=== PATIENT | male | born 1970 | race African-American/Black ===

== ENCOUNTER 2017-01-01 13:52 | Inpatient (IN) | payer OTHER ==
[2017-01-01 14:54] VITALS: BMI 32.3
--- NOTE | 2017-01-01 15:37 | HP ---
CIWA Score - CIWA Score Nausea/Vomitin Muscle Tremors: 3 Anxiety: 4-Mod. Anxious/Guarded Agitation: 3 Paroxysmal Sweats: 3 Orientation: 2-Disoriented Date<2 days Tacttile Disturbances: 0-None Auditory Disturbances: 0-None Visual Disturbances: 0-None Headache: 0-None Present CIWA-Ar Total Score: 18 Admission ROS BHS - HPI Chief Complaint: Withdrawal sx. Allergies/Adverse Reactions: Allergies Allergy/AdvReac Type Severity Reaction Status Date / Time No Known Drug Allergies Allergy Verified 05/04/16 11:11 lactose AdvReac Unknown DIARRHEA Verified 05/04/16 11:11 History of Present Illness: 46 y/o man with a long hx. of alcoholism is admitted for detox.Pt. has been in previous detox,denies significant sobriety. Exam Limitations: No Limitations - Ebola screening Have you traveled outside of the country in the last 21 days: No (N) Have you had contact with anyone from an Ebola affected area: No Have you been sick,other than usual withdrawal symptoms: No Do you have a fever: No - Review of Systems Constitutional: Diaphoresis EENT: reports: No Symptoms Reported Respiratory: reports: No Symptoms reported Cardiac: reports: No Symptoms Reported GI: reports: Nausea, Abdominal cramping : reports: No Symptoms Reported Musculoskeletal: reports: Back Pain Integumentary: reports: Sweating Neuro: reports: Tremors, Other (blackouts) Endocrine: reports: No Symptoms Reported Hematology: reports: No Symptoms Reported Psychiatric: reports: No Sypmtoms Reported Other Systems: Reviewed and Negative Patient History - Patient Medical History Hx Anemia: No Hx Asthma: Yes (ON MDI) Hx Chronic Obstructive Pulmonary Disease (COPD): No Hx Cancer: No Hx Cardiac Disorders: No Hx Congestive Heart Failure: No Hx Hypertension: No Hx Hypercholesterolemia: No Hx Pacemaker: No HX Cerebrovascular Accident: No Hx Seizures: No Hx Dementia: No Hx Diabetes: No Hx Gastrointestinal Disorders: Yes (???HX GERD-PRILOSEC(NONCOMPLIANT)"CYST BY ENDOSCOPY". HX VOMITS BLOOD.) Hx Liver Disease: Yes (FATTY LIVER x "few years") Hx Genitourinary Disorders: No Hx Sexually Transmitted Disorders: Yes (herpes/HPV) Hx Renal Disease (ESRD): No Hx Thyroid Disease: No Hx Human Immunodeficiency Virus (HIV): No Hx Hepatitis C: No Hx Depression: Yes (AND ANXIETY;ON MEDS) Hx Suicide Attempt: Yes (;DENIES CURRENT IDEATION) Hx Bipolar Disorder: No Hx Schizophrenia: No - Patient Surgical History Past Surgical History: No Hx Neurologic Surgery: No Hx Cataract Extraction: No Hx Cardiac Surgery: No Hx Lung Surgery: No Hx Breast Surgery: No Hx Breast Biopsy: No Hx Abdominal Surgery: No Hx Appendectomy: No Hx Cholecystectomy: No Hx Genitourinary Surgery: No Hx Section: No Hx Orthopedic Surgery: No Anesthesia Reaction: No - PPD History Previous Implant?: Yes Documented Results: Negative w/proof Implanted On Prior R Admission?: Yes Date: 10/03/15 Results: 0 mm PPD to be Administered?: Yes - Smoking Cessation Smoking history: Former smoker Have you smoked in the past 12 months: Yes Aproximately how many cigarettes per day: 0 If you are a former smoker, when did you quit?: 12/17 Cigars Per Day: 0 Hx Chewing Tobacco Use: No Initiated information on smoking cessation: No - Substance & Tx. History Hx Alcohol Use: Yes Hx Substance Use: No Substance Use Type: Alcohol Hx Substance Use Treatment: Yes (Detox & Residential) - Substances Abused Alcohol Route: Oral Frequency: Daily Amount used: Beer 2(6packs),vodka 1 pint Age of first use: 17 Date of Last Use: 01/01/17 Family Disease History - Family Disease History Family History: Unable to Obtain (pt. was adopted) Admission Physical Exam BHS - Vital Signs Vital Signs: Vital Signs - 24 hr 01/01/17 14:52 Temperature 98.7 F Pulse Rate 109 H Respiratory 18 Rate Blood Pressure 137/87 - Physical General Appearance: Yes: Alcohol on Breath, Tremorous, Irritable, Sweating, Anxious Respiratory: Yes: Lungs Clear, Normal Breath Sounds Neck: Yes: Supple Breast: Yes: Breast Exam Deferred Cardiology: Yes: Regular Rhythm, Regular Rate, S1, S2 Abdominal: Yes: Normal Bowel Sounds, Non Tender, Soft Genitourinary: Yes: Within Normal Limits Back: Yes: Within Normal Limits Musculoskeletal: Yes: Within Normal Limits Extremities: Yes: Tremors Neurological: Yes: Fully Oriented, Alert Integumentary: Yes: Diaphoresis Lymphatic: Yes: Within Normal Limits - Diagnostic (1) Alcohol dependence with uncomplicated withdrawal Current Visit: Yes Status: Acute (2) Asthma Current Visit: Yes Status: Chronic Qualifiers: Asthma severity: mild intermittent Asthma complication type: uncomplicated Qualified Code(s): J45.20 - Mild intermittent asthma, uncomplicated (3) GERD (gastroesophageal reflux disease) Current Visit: Yes Status: Chronic Qualifiers: Esophagitis presence: without esophagitis Qualified Code(s): K21.9 - Gastro-esophageal reflux disease without esophagitis Cleared for Admission BHS - Detox or Rehab [facility] Level of Care: Medically Managed Detox Regimen/Protocol: Librium [facility] Breath Alcohol Content Breath Alcohol Content: 0.295 Urine Drug Screen - Results Drug Screen Negative: No Urine Drug Screen Results: BZO-Benzodiazepines
[2017-01-01] MEDS ORDERED: P-EPHED 60MG/TRIPROLIDI 2.5MG TABLET PO PRN (15:51)
[2017-01-01] MEDS ORDERED: chlordiazePOXIDE HCL 25 MG CAPSULE PO PRN (15:51)
[2017-01-01] MEDS ORDERED: hydrOXYzine PAMOATE 50 MG CAPSULE (FP) PO PRN (15:51)
[2017-01-01] MEDS ORDERED: MENTHOL/PHENOL 1 EACH UD MM PRN (15:51)
[2017-01-01] MEDS ORDERED: MAG HYDROX/AL HYDROX/SIMETH 30 ML UNIT-DOSE CUP PO PRN (15:51)
[2017-01-01] MEDS ORDERED: chlordiazePOXIDE HCL 25 MG CAPSULE PO ONE (15:51)
[2017-01-01] MEDS ORDERED: LOPERAMIDE HCL 2 MG CAPSULE PO PRN (15:51)
[2017-01-01] MEDS ORDERED: guaiFENesin/D-METHORPHAN HB 10 ML UNIT-DOSE CUPS PO PRN (15:51)
[2017-01-01] MEDS ORDERED: MAGNESIUM HYDROX 2400MG/30ML ORAL SUSPENSION 30 ML CUP PO PRN (15:51)
[2017-01-01] MEDS ORDERED: ACETAMINOPHEN 325 MG TABLET (FP) PO PRN (15:51)
[2017-01-01] MEDS ORDERED: MAGNESIUM CITRATE 300 ML BOTTLE PO PRN (15:51)
[2017-01-01] MEDS ORDERED: IBUPROFEN 400 MG TABLET (FP) PO PRN (15:51)
[2017-01-01] MEDS ORDERED: ALBUTEROL SO4 6.7 GM HFA INHALER IH PRN (15:53)
[2017-01-01] MEDS: chlordiazePOXIDE HCL 25 MG CAPSULE PO SCH ×2 (17:15→22:30)
[2017-01-01 19:12] LABS: URINE APPEARANCE CLEAR; URINE BILIRUBIN NEGATIVE (NEGATIVE); URINE COLOR STRAW; URINE GLUCOSE (UA) NEGATIVE (NEGATIVE); URINE KETONE NEGATIVE (NEGATIVE); URINE LEUK ESTERASE NEGATIVE (NEGATIVE); URINE NITRITE NEGATIVE (NEGATIVE); URINE UROBILINOGEN NEGATIVE E.U./dl (0.2-1.0)
[2017-01-01 19:13] LABS: URINE BLOOD 1+ (NEGATIVE); URINE PROTEIN 1+ (NEGATIVE)
[2017-01-01 19:14] LABS: URINE MUCUS RARE; URINE RBC 3 /hpf (0-3); URINE WBC <1 /hpf (3-5)
[2017-01-01] MEDS: THIAMINE HCL 100 MG TABLET (FP) PO SCH (22:30)
[2017-01-01] MEDS: BUDESONIDE/FORMETEROL FUMARATE 160/4.5 mcg INHALER IH SCH (22:32)
[2017-01-02] MEDS: chlordiazePOXIDE HCL 25 MG CAPSULE PO SCH ×4 (05:29→22:27)
--- NOTE | 2017-01-02 10:01 | CONSULT ---
[facility] Psychiatric Consult - Data Date of interview: 01/02/17 Admission source: [facility] Identifying data: Another admission to [facility] for this 46 y/o AA male seeking detox treatment on for alcohol dependence.Patient is , a father of two,domiciled,unemployed and supported by his girlfriend. Substance Abuse History: - Smoking Cessation. Smoking history: Former smoker. Have you smoked in the past 12 months: Yes. Aproximately how many cigarettes per day: 0. If you are a former smoker, when did you quit?: 12/17. Cigars Per Day: 0. Hx Chewing Tobacco Use: No. Initiated information on smoking cessation : No. - Substance & Tx. History. Hx Alcohol Use: Yes. Hx Substance Use: No. Substance Use Type: Alcohol. Hx Substance Use Treatment: Yes (Detox & Residential). - Substances Abused. Alcohol. Route: Oral. Frequency: Daily. Amount used: Beer 2(6packs),vodka 1 pint. Age of first use: 17. Date of Last Use: 01/01/17. Confirmed by patient. Medical History: GERD,bronchial asthma and liver disease.Noted history of herpes genitalis. Psychiatric History: Onset of psychiatric problems : 2006.Diagnosed with MDD and Anxiety Disorder.Patient is known to [facility] (2006) and [facility] (2011).Mr Whitmore gets his psychiatric outpatient services at [facility]),under the care of Dr Greene.Maintenance medications consist of remeron 45 mg po hs + trazodone 150 mg po hs + gabapentin 300 mg po tid.Non-adherent to medications for two weeks (self-report) .History of a suicide attempt in 2008 via overdose with " pills ". Physical/Sexual Abuse/Trauma History: Patient denies. Additional Comment: Urine Drug Screen Results: BZO-Benzodiazepines.Noted. Mental Status Exam - Mental Status Exam Alert and Oriented to: Time, Place, Person Cognitive Function: Good Patient Appearance: Unkempt, Disheveled Mood: Nervous, Withdrawn, Anxious Affect: Mood Congruent, Constricted Patient Behavior: Fatigued, Cooperative Speech Pattern: Clear Voice Loudness: Normal Thought Process: Goal Oriented Thought Disorder: Not Present Hallucinations: Denies Suicidal Ideation: Denies Homicidal Ideation: Denies Insight/Judgement: Poor Sleep: Poorly, Difficulty falling asleep Appetite: Good Muscle strength/Tone: Normal Gait/Station: Normal Psychiatric Findings - Problem List ([place] 1, 2,3) (1) Alcohol dependence with uncomplicated withdrawal Current Visit: Yes Status: Acute (2) Nicotine dependence Current Visit: Yes Status: Acute Qualifiers: Nicotine product type: cigarettes Substance use status: uncomplicated Qualified Code(s): F17.210 - Nicotine dependence, cigarettes, uncomplicated (3) Substance induced mood disorder Current Visit: Yes Status: Acute (4) MDD (major depressive disorder) Current Visit: Yes Status: Chronic Qualifiers: Major depression recurrence: recurrent Active/Remission status: in partial remission Qualified Code(s): F33.41 - Major depressive disorder, recurrent, in partial remission (5) Asthma Current Visit: Yes Status: Chronic Qualifiers: Asthma severity: mild intermittent Asthma complication type: uncomplicated Qualified Code(s): J45.20 - Mild intermittent asthma, uncomplicated (6) GERD (gastroesophageal reflux disease) Current Visit: Yes Status: Chronic Qualifiers: Esophagitis presence: without esophagitis Qualified Code(s): K21.9 - Gastro-esophageal reflux disease without esophagitis - Initial Treatment Plan Initial Treatment Plan: Psychoeducation.Detoxification in progress.Medications : trazodone 100 mg po hs + remeron 15 mg po hs + gabapentin 300 mg po tid.Side effects/benefits of each medication : discussed with the patient.Made aware,in particular,of potential for priapism (trazodone).Patient is in agreement with this careplan.Observation.
[2017-01-02] MEDS: PRENATAL VITAMINS W/ FOLIC ACID TABLET (FP) PO SCH (10:30)
[2017-01-02] MEDS: BUDESONIDE/FORMETEROL FUMARATE 160/4.5 mcg INHALER IH SCH ×2 (10:30→22:27)
[2017-01-02] MEDS ORDERED: ONDANSETRON *ODT* 4 MG TABLET SL PRN (11:39)
--- NOTE | 2017-01-02 11:39 | PN ---
[facility] CIWA - CIWA Score Nausea/Vomitin-No Nausea/No Vomiting Muscle Tremors: 4-Moderate,w/Arms Extend Anxiety: 4-Mod. Anxious/Guarded Agitation: 4-Moderately Restless Paroxysmal Sweats: 1-Minimal Palms Moist Orientation: 0-Oriented Tacttile Disturbances: 3-Moderate Itch/Numb/Burn Auditory Disturbances: 0-None Visual Disturbances: 0-None Headache: 0-None Present CIWA-Ar Total Score: 16 BHS Progress Note (SOAP) Subjective: NAUSEA, ANXIETY,SWEATS, TREMORS. Objective: 01/02/17 11:39 Vital Signs Temperature 97.7 F 01/02/17 09:22 Pulse Rate 101 H 01/02/17 09:22 Respiratory Rate 18 01/02/17 09:22 Blood Pressure 131/90 01/02/17 09:22 O2 Sat by Pulse Oximetry (%) Laboratory Last Values Urine Color Straw 01/01/17 18:56 Urine Appearance Clear 01/01/17 18:56 Urine pH 5.0 (5.0-8.0) 01/01/17 18:56 Ur Specific [place] <= 1.005 (1.005-1.025) 01/01/17 18:56 Urine Protein 1+ (NEGATIVE) H 01/01/17 18:56 Urine Glucose (UA) Negative (NEGATIVE) 01/01/17 18:56 Urine Ketones Negative (NEGATIVE) 01/01/17 18:56 Urine Blood 1+ (NEGATIVE) H 01/01/17 18:56 Urine Nitrite Negative (NEGATIVE) 01/01/17 18:56 Urine Bilirubin Negative (NEGATIVE) 01/01/17 18:56 Urine Urobilinogen Negative E.U./dl (0.2-1.0) 01/01/17 18:56 Ur Leukocyte Esterase Negative (NEGATIVE) 01/01/17 18:56 Urine RBC 3 /hpf (0-3) 01/01/17 18:56 Urine WBC <1 /hpf (3-5) 01/01/17 18:56 Ur Epithelial Cells Rare /hpf (FEW) 01/01/17 18:56 Urine Mucus Rare 01/01/17 18:56 Assessment: 01/02/17 11:39 WITHDRAWAL SX Plan: CONTINUE DETOX ZOFRAN DIRECTED
[2017-01-02 12:16] LABS: MCH 28.2 pg (25.7-33.7); MCHC 32.5 g/dl (32.0-35.9); MEAN CELL VOLUME 86.7 fl (80-96); MEAN PLT VOLUME 10.1 fl (7.5-11.1); PLATELET COUNT 129 K/MM3 (134-434)
[2017-01-02 12:25] LABS: ALBUMIN 4.1 g/dl (3.4-5.0); ALK PHOS 74 U/L (45-117); ANION GAP 9 (8-16); BILIRUBIN,TOTAL 0.9 mg/dL (0.2-1.0); CO2 29 mmol/L (21-32); COCKROFT - GAULT 117.32; GLUCOSE,RANDOM 76 mg/dL (74-106); SGOT/AST 61 U/L (15-37); SGPT/ALT 53 U/L (12-78); TOT PROT 7.8 g/dl (6.4-8.2)
[2017-01-02 12:32] LABS: HIV 1 & 2 AB NEGATIVE; HIV 1 AGp24 NEGATIVE
[2017-01-02] MEDS: GABAPENTIN 300 MG CAPSULE (FP) PO SCH ×2 (13:41→22:27)
--- NOTE | 2017-01-02 14:23 | EKG ---
Test Reason : Blood Pressure : / mmHG Vent. Rate : 097 BPM Atrial Rate : 097 BPM P-R Int : 130 ms QRS Dur : 074 ms QT Int : 348 ms P-R-T Axes : 055 025 032 degrees QTc Int : 441 ms NORMAL SINUS RHYTHM POSSIBLE LEFT ATRIAL ENLARGEMENT BORDERLINE ECG NO PREVIOUS ECGS AVAILABLE Confirmed by JOSHUA WARD MD ([id number]) on 01/02/2017 2:22:31 PM Referred By: Confirmed By:JOSHUA WARD MD
[2017-01-02] MEDS: THIAMINE HCL 100 MG TABLET (FP) PO SCH (22:27)
[2017-01-02] MEDS: traZODone HCL 100 MG TABLET (FP) PO SCH (22:27)
[2017-01-03] MEDS: GABAPENTIN 300 MG CAPSULE (FP) PO SCH ×3 (05:41→22:41)
[2017-01-03] MEDS: chlordiazePOXIDE HCL 25 MG CAPSULE PO SCH ×2 (05:41→10:28)
[2017-01-03] MEDS: BUDESONIDE/FORMETEROL FUMARATE 160/4.5 mcg INHALER IH SCH ×2 (10:28→22:41)
[2017-01-03] MEDS: PRENATAL VITAMINS W/ FOLIC ACID TABLET (FP) PO SCH (10:28)
--- NOTE | 2017-01-03 12:17 | PN ---
[facility] CIWA - CIWA Score Nausea/Vomitin-No Nausea/No Vomiting Muscle Tremors: 4-Moderate,w/Arms Extend Anxiety: 4-Mod. Anxious/Guarded Agitation: 4-Moderately Restless Paroxysmal Sweats: 1-Minimal Palms Moist Orientation: 0-Oriented Tacttile Disturbances: 3-Moderate Itch/Numb/Burn Auditory Disturbances: 0-None Visual Disturbances: 0-None Headache: 0-None Present CIWA-Ar Total Score: 16 S Progress Note (SOAP) Subjective: ANXIETY,SWEATS,TREMORS,FATIGUE. Objective: 01/03/17 12:16 Vital Signs Temperature 96.9 F L 01/03/17 09:35 Pulse Rate 92 H 01/03/17 09:35 Respiratory Rate 20 01/03/17 09:35 Blood Pressure 92/65 01/03/17 09:35 O2 Sat by Pulse Oximetry (%) Laboratory Last Values WBC 7.0 K/mm3 (4.0-10.0) 01/02/17 07:00 RBC 5.75 M/mm3 (4.00-5.60) H 01/02/17 07:00 Hgb 16.2 GM/dL (11.7-16.9) 01/02/17 07:00 Hct 49.8 % (35.4-49) H 01/02/17 07:00 MCV 86.7 fl (80-96) 01/02/17 07:00 MCHC 32.5 g/dl (32.0-35.9) 01/02/17 07:00 RDW 15.0 % (11.9-15.9) D 01/02/17 07:00 Plt Count 129 K/MM3 (134-434) L D 01/02/17 07:00 MPV 10.1 fl (7.5-11.1) 01/02/17 07:00 Sodium 137 mmol/L (136-145) 01/02/17 07:00 Potassium 4.3 mmol/L (3.5-5.1) 01/02/17 07:00 Chloride 99 mmol/L (98-107) 01/02/17 07:00 Carbon Dioxide 29 mmol/L (21-32) D 01/02/17 07:00 Anion Gap 9 (8-16) 01/02/17 07:00 BUN 14 mg/dL (7-18) D 01/02/17 07:00 Creatinine 1.0 mg/dL (0.7-1.3) 01/02/17 07:00 Creat Clearance w eGFR > 60 (>60) 01/02/17 07:00 Random Glucose 76 mg/dL (74-106) D 01/02/17 07:00 Calcium 9.0 mg/dL (8.5-10.1) 01/02/17 07:00 Total Bilirubin 0.9 mg/dL (0.2-1.0) D 01/02/17 07:00 AST 61 U/L (15-37) H D 01/02/17 07:00 ALT 53 U/L (12-78) D 01/02/17 07:00 Alkaline Phosphatase 74 U/L (45-117) D 01/02/17 07:00 Total Protein 7.8 g/dl (6.4-8.2) 01/02/17 07:00 Albumin 4.1 g/dl (3.4-5.0) 01/02/17 07:00 Urine Color Straw 01/01/17 18:56 Urine Appearance Clear 01/01/17 18:56 Urine pH 5.0 (5.0-8.0) 01/01/17 18:56 Ur Specific [place] <= 1.005 (1.005-1.025) 01/01/17 18:56 Urine Protein 1+ (NEGATIVE) H 01/01/17 18:56 Urine Glucose (UA) Negative (NEGATIVE) 01/01/17 18:56 Urine Ketones Negative (NEGATIVE) 01/01/17 18:56 Urine Blood 1+ (NEGATIVE) H 01/01/17 18:56 Urine Nitrite Negative (NEGATIVE) 01/01/17 18:56 Urine Bilirubin Negative (NEGATIVE) 01/01/17 18:56 Urine Urobilinogen Negative E.U./dl (0.2-1.0) 01/01/17 18:56 Ur Leukocyte Esterase Negative (NEGATIVE) 01/01/17 18:56 Urine RBC 3 /hpf (0-3) 01/01/17 18:56 Urine WBC <1 /hpf (3-5) 01/01/17 18:56 Ur Epithelial Cells Rare /hpf (FEW) 01/01/17 18:56 Urine Mucus Rare 01/01/17 18:56 RPR Titer Nonreactive (NONREACTIVE) 01/02/17 07:00 HIV 1&2 Antibody Screen Negative 01/02/17 07:00 HIV P24 Antigen Negative 01/02/17 07:00 Assessment: 01/03/17 12:16 WITHDRAWAL SX Plan: CONTINUE DETOX
[2017-01-03] MEDS: chlordiazePOXIDE 5 MG CAPSULE PO SCH ×2 (17:31→22:41)
[2017-01-03] MEDS: THIAMINE HCL 100 MG TABLET (FP) PO SCH (22:40)
[2017-01-03] MEDS: traZODone HCL 100 MG TABLET (FP) PO SCH (22:41)
[2017-01-03] MEDS: diphenhydrAMINE HCL 50 MG CAPSULE PO PRN (22:42)
[2017-01-04] MEDS: diphenhydrAMINE HCL 50 MG CAPSULE PO PRN (00:22)
[2017-01-04] MEDS: chlordiazePOXIDE 5 MG CAPSULE PO SCH (05:33)
[2017-01-04] MEDS: GABAPENTIN 300 MG CAPSULE (FP) PO SCH (05:33)
[2017-01-04 06:37] VITALS: BP 114/76; PULSE 75; TEMP 97
--- NOTE | 2017-01-04 11:01 | DS ---
[facility] Detox Discharge Summary Admission Date: 01/01/17 Discharge Date: 01/04/17 - History Present History: Alcohol Dependence Additional Comments: PT SIGNED OUT AMA VERY EARLY THIS MORNING STATING HE HAS SOME PERSONAL BUSINESS TO TAKE CARE OF. Pertinent Past History: ASTHMA GERD FATTY LIVER DEPRESSION - Physical Exam Results Vital Signs: Vital Signs Temperature 97 F L 01/04/17 06:37 Pulse Rate 75 01/04/17 06:37 Respiratory Rate 18 01/04/17 06:37 Blood Pressure 114/76 01/04/17 06:37 O2 Sat by Pulse Oximetry (%) - Medication Discharge Medications: Ambulatory Orders Gabapentin [Neurontin -] 300 mg PO TID #90 capsule 05/04/16 Mirtazapine [Remeron -] 45 mg PO HS #30 tablet 05/04/16 Trazodone HCl [Desyrel -] 150 mg PO HS #30 tablet 05/04/16 Albuterol Sulfate Inhaler - [Ventolin HFA Inhaler -] 2 inh PO Q4H PRN #1 inhaler 05/08/16 Gabapentin [Neurontin -] 300 mg PO TID #60 capsule 01/03/17 Mirtazapine [Remeron -] 15 mg PO HS #30 tablet 01/03/17 Trazodone HCl [Desyrel -] 150 mg PO HS #30 tablet 01/03/17 - Diagnosis (1) Alcohol dependence with uncomplicated withdrawal Status: Acute (2) Nicotine dependence Status: Acute Qualifiers: Nicotine product type: cigarettes Substance use status: uncomplicated Qualified Code(s): F17.210 - Nicotine dependence, cigarettes, uncomplicated (3) Asthma Status: Chronic Qualifiers: Asthma severity: mild intermittent Asthma complication type: uncomplicated Qualified Code(s): J45.20 - Mild intermittent asthma, uncomplicated (4) GERD (gastroesophageal reflux disease) Status: Chronic Qualifiers: Esophagitis presence: without esophagitis Qualified Code(s): K21.9 - Gastro-esophageal reflux disease without esophagitis (5) Weight decreased Status: Chronic (6) Substance induced mood disorder Status: Acute (7) MDD (major depressive disorder) Status: Chronic Qualifiers: Major depression recurrence: recurrent Active/Remission status: in partial remission Qualified Code(s): F33.41 - Major depressive disorder, recurrent, in partial remission - AMA Did Patient Leave Against Medical Advice: Yes
[2017-01-04] MEDS ORDERED: chlordiazePOXIDE HCL 10 MG CAPSULE PO SCH (17:00)
== END 2017-01-04 06:48 | disposition left against medical advice (07) | DRG 770 ==
LOC: YASAS 13:52 → Y3N 16:32
PROVIDERS: ADMIT Internal Medicine; ATTEND Internal Medicine
PROC: HZ2ZZZZ Detoxification Services for Substance Abuse Treatment (ICD-10-PCS; principal; 2017-01-04)
DX: F10.230 Alcohol dependence with withdrawal, uncomplicated (principal); F17.210 Nicotine dependence, cigarettes, uncomplicated; F19.24 Other psychoactive substance dependence with psychoactive substance-induced mood disorder; F33.41 Major depressive disorder, recurrent, in partial remission; J45.20 Mild intermittent asthma, uncomplicated; K21.9 Gastro-esophageal reflux disease without esophagitis; R63.4 Abnormal weight loss; Z68.32 Body mass index [BMI] 32.0-32.9, adult; Z87.438 Personal history of other diseases of male genital organs
CPT/HCPCS: 36415; 80053; 81003; 81015; 85027; 86593; 87389; 93005; 93010

== ENCOUNTER 2017-03-26 17:28 | Inpatient (IN) | payer OTHER ==
[2017-03-26 18:53] VITALS: BMI 32.3
--- NOTE | 2017-03-26 21:58 | HP ---
CIWA Score - CIWA Score Nausea/Vomitin Muscle Tremors: 2 Anxiety: 2 Agitation: 2 Paroxysmal Sweats: 3 Orientation: 2-Disoriented Date<2 days Tacttile Disturbances: 1-Very Mild Itch/Numbness Auditory Disturbances: 1-Very Mild Visual Disturbances: 0-None Headache: 1-Very Mild CIWA-Ar Total Score: 17 Admission ROS BHS - HPI Chief Complaint: WITHDRAWAL SYMPTOMS Allergies/Adverse Reactions: Allergies Allergy/AdvReac Type Severity Reaction Status Date / Time No Known Drug Allergies Allergy Verified 01/01/17 16:08 lactose AdvReac Unknown DIARRHEA Verified 01/01/17 16:08 History of Present Illness: 47 Y.O. MAN WITH AN EXTENSIVE HISTORY OF ALCOHOL DEPENDENCE IS HERE SEEKING DETOX. HE WAS LAST HERE IN 12/2016 FOR DETOX BUT LEFT AMA. HE DOES NOT HAVE A SIGNIFICANT PERIOD OF SOBRIETY. Exam Limitations: Intoxication - Ebola screening Have you traveled outside of the country in the last 21 days: No Have you had contact with anyone from an Ebola affected area: No Have you been sick,other than usual withdrawal symptoms: No Do you have a fever: No - Review of Systems Constitutional: Chills, Diaphoresis, Loss of Appetite, Unintentional Wgt. Loss EENT: reports: Tearing Respiratory: reports: Shortness of Breath Cardiac: reports: Lightheadedness GI: reports: Abd. Pain w/ defecation, Nausea, Vomiting : reports: No Symptoms Reported Musculoskeletal: reports: Back Pain Integumentary: reports: No Symptoms Reported Neuro: reports: Tingling Endocrine: reports: No Symptoms Reported Hematology: reports: No Symptoms Reported Psychiatric: reports: Anxious, Depressed Patient History - Patient Medical History Hx Anemia: No Hx Asthma: Yes (Pt is on Albuterol IH) Hx Chronic Obstructive Pulmonary Disease (COPD): No Hx Cancer: No Hx Cardiac Disorders: No Hx Congestive Heart Failure: No Hx Hypertension: No Hx Hypercholesterolemia: No Hx Pacemaker: No HX Cerebrovascular Accident: No Hx Seizures: No Hx Dementia: No Hx Diabetes: No Hx Gastrointestinal Disorders: No Hx Liver Disease: Yes (FATTY LIVER x "few years") Hx Genitourinary Disorders: No Hx Sexually Transmitted Disorders: Yes (Herpes) Hx Renal Disease (ESRD): No Hx Thyroid Disease: No Hx Human Immunodeficiency Virus (HIV): No Hx Hepatitis C: No Hx Depression: Yes Hx Suicide Attempt: No Hx Bipolar Disorder: No Hx Schizophrenia: No - Patient Surgical History Past Surgical History: No Hx Neurologic Surgery: No Hx Cataract Extraction: No Hx Cardiac Surgery: No Hx Lung Surgery: No Hx Breast Surgery: No Hx Breast Biopsy: No Hx Abdominal Surgery: No Hx Appendectomy: No Hx Cholecystectomy: No Hx Genitourinary Surgery: No Hx Section: No Hx Orthopedic Surgery: No Anesthesia Reaction: No - PPD History Previous Implant?: Yes Documented Results: Negative w/proof Date: 01/03/17 Results: 0mm PPD to be Administered?: No - Reproductive History Patient is a Female of Child Bearing Age (11 -55 yrs old): No - Smoking Cessation Smoking history: Former smoker Have you smoked in the past 12 months: Yes Aproximately how many cigarettes per day: 0 If you are a former smoker, when did you quit?: 12/17 Cigars Per Day: 0 Hx Chewing Tobacco Use: No Initiated information on smoking cessation: Yes 'Breaking Loose' booklet given: 03/26/17 - Substance & Tx. History Hx Alcohol Use: Yes Substance Use Type: Alcohol Hx Substance Use Treatment: Yes (DETOX: 12/2016; REHAB: 06/2016) - Substances Abused Alcohol Route: Oral Frequency: Daily Amount used: Vodka 1 pint, Liquor (4x 40 oz) Age of first use: 17 Date of Last Use: 03/25/17 Family Disease History - Family Disease History Family History: Unremarkable Admission Physical Exam BHS - Vital Signs Vital Signs: Vital Signs - 24 hr 03/26/17 18:51 Temperature 98.2 F Pulse Rate 114 H Respiratory 20 Rate Blood Pressure 170/109 - Physical General Appearance: Yes: Intoxicated, Sweating, Anxious HEENTM: Yes: Hearing grossly Normal, Normocephalic, Normal Voice Respiratory: Yes: Chest Non-Tender, Lungs Clear, Normal Breath Sounds, No Respiratory Distress, No Accessory Muscle Use Neck: Yes: No masses,lesions,Nodules, Trachea in good position Breast: Yes: Breast Exam Deferred Cardiology: Yes: Regular Rhythm, Tachycardia Abdominal: Yes: Normal Bowel Sounds, Non Tender Genitourinary: Yes: Other (NO COMPLAINTS REPORTED) Back: Yes: Normal Inspection Musculoskeletal: Yes: full range of Motion, Gait Steady, Pelvis Stable Extremities: Yes: Normal Capillary Refill, Normal Range of Motion, Non-Tender, Coldness Neurological: Yes: Alert, Motor Strength 5/5, Normal Mood/Affect, Normal Response Integumentary: Yes: Normal Color, Dry, Warm Lymphatic: Yes: Within Normal Limits - Diagnostic (1) Alcohol dependence with uncomplicated withdrawal Current Visit: Yes Status: Chronic (2) Nicotine dependence Current Visit: Yes Status: Chronic Qualifiers: Nicotine product type: cigarettes Substance use status: uncomplicated Qualified Code(s): F17.210 - Nicotine dependence, cigarettes, uncomplicated (3) Asthma Current Visit: Yes Status: Chronic Qualifiers: Asthma severity: mild intermittent Asthma complication type: uncomplicated Qualified Code(s): J45.20 - Mild intermittent asthma, uncomplicated Cleared for Admission S - Detox or Rehab [facility] Level of Care: Medically Managed Detox Regimen/Protocol: Librium S Breath Alcohol Content Breath Alcohol Content: 0.225 Urine Drug Screen - Results Drug Screen Negative: No Urine Drug Screen Results: BZO-Benzodiazepines
[2017-03-26] MEDS ORDERED: guaiFENesin/D-METHORPHAN HB 10 ML UNIT-DOSE CUPS PO PRN (22:10)
[2017-03-26] MEDS ORDERED: chlordiazePOXIDE HCL 25 MG CAPSULE PO ONE (22:10)
[2017-03-26] MEDS ORDERED: diphenhydrAMINE HCL 50 MG CAPSULE PO PRN (22:10)
[2017-03-26] MEDS ORDERED: LOPERAMIDE HCL 2 MG CAPSULE PO PRN (22:10)
[2017-03-26] MEDS ORDERED: P-EPHED 60MG/TRIPROLIDI 2.5MG TABLET PO PRN (22:10)
[2017-03-26] MEDS ORDERED: MAGNESIUM HYDROX 2400MG/30ML ORAL SUSPENSION 30 ML CUP PO PRN (22:10)
[2017-03-26] MEDS ORDERED: IBUPROFEN 400 MG TABLET (FP) PO PRN (22:10)
[2017-03-26] MEDS ORDERED: hydrOXYzine PAMOATE 50 MG CAPSULE (FP) PO PRN (22:10)
[2017-03-26] MEDS ORDERED: MAG HYDROX/AL HYDROX/SIMETH 30 ML UNIT-DOSE CUP PO PRN (22:10)
[2017-03-26] MEDS ORDERED: ACETAMINOPHEN 325 MG TABLET (FP) PO PRN (22:10)
[2017-03-26] MEDS ORDERED: chlordiazePOXIDE HCL 25 MG CAPSULE PO PRN (22:10)
[2017-03-26] MEDS ORDERED: MAGNESIUM CITRATE 300 ML BOTTLE PO PRN (22:10)
[2017-03-26] MEDS ORDERED: MENTHOL/PHENOL 1 EACH UD MM PRN (22:10)
[2017-03-26] MEDS ORDERED: NICOTINE POLACRILEX 2 MG GUM BC PRN (22:10)
[2017-03-26] MEDS ORDERED: cloNIDine HCL 0.1 MG TABLET PO ONE (22:11)
[2017-03-26] MEDS: chlordiazePOXIDE HCL 25 MG CAPSULE PO SCH (22:31)
[2017-03-27] MEDS: chlordiazePOXIDE HCL 25 MG CAPSULE PO SCH ×4 (05:31→22:07)
[2017-03-27] MEDS: ALBUTEROL SO4 6.7 GM HFA INHALER IH PRN (07:31)
[2017-03-27] MEDS ORDERED: ONDANSETRON *ODT* 4 MG TABLET SL PRN (09:54)
[2017-03-27] MEDS ORDERED: ALBUTEROL SO4 2.5/IPRATROPIUM 0.5 INH SOL 3 ML VIAL.NEB. NEB PRN (09:56)
[2017-03-27 10:00] LABS: MCH 29.1 pg (25.7-33.7); MCHC 31.6 g/dl (32.0-35.9); MEAN PLT VOLUME 9.9 fl (7.5-11.1); PLATELET COUNT 175 K/MM3 (134-434); RDW 14.2 % (11.9-15.9)
[2017-03-27] MEDS: PRENATAL VITAMINS W/ FOLIC ACID TABLET (FP) PO SCH (10:03)
--- NOTE | 2017-03-27 11:12 | PN ---
[facility] CIWA - CIWA Score Nausea/Vomitin Muscle Tremors: 4-Moderate,w/Arms Extend Anxiety: 3 Agitation: 1-Slight > Activity Paroxysmal Sweats: 3 Orientation: 2-Disoriented Date<2 days Tacttile Disturbances: 0-None Auditory Disturbances: 2-Mild Harshness/Frighten Visual Disturbances: 0-None Headache: 0-None Present CIWA-Ar Total Score: 18 BHS Progress Note (SOAP) Subjective: Nausea, Tremors, Interrupted sleep, Sweating. Objective: PT. A & O X 2 (DISORIENTED ABOUT DAY /DATE). PT. OBSERVED AMBULATING ON UNIT. NO ACUTE DISTRESS. 03/27/17 11:10 Vital Signs Temperature 97.6 F 03/27/17 09:09 Pulse Rate 95 H 03/27/17 09:09 Respiratory Rate 20 03/27/17 09:09 Blood Pressure 136/83 03/27/17 09:09 O2 Sat by Pulse Oximetry (%) Laboratory Tests 03/27/17 07:00 WBC 6.0 RBC 5.08 Hgb 14.8 Hct 46.7 MCV 92.0 MCH 29.1 MCHC 31.6 L RDW 14.2 Plt Count 175 D MPV 9.9 LABS NOTED. COMP. META., UA, AND RPR RESULTS PENDING. 03/27/17 11:11 Assessment: 03/27/17 11:11 WITHDRAWAL SYMPTOMS. Plan: CONTINUE DETOX.
[2017-03-27 11:22] LABS: ALBUMIN 3.9 g/dl (3.4-5.0); ANION GAP 9 (8-16); BILIRUBIN,TOTAL 0.5 mg/dL (0.2-1.0); CALCIUM 8.4 mg/dL (8.5-10.1); CO2 28 mmol/L (21-32); GLUCOSE,RANDOM 72 mg/dL (74-106); SGOT/AST 38 U/L (15-37); SGPT/ALT 55 U/L (12-78); TOT PROT 7.2 g/dl (6.4-8.2)
[2017-03-27 11:23] LABS: ALK PHOS 52 U/L (45-117)
[2017-03-27] MEDS ORDERED: PNEUMOC 13-VAL CONJ-DIP CRM/PF 0.5 ML DISP.SYRIN IM ONE (12:00)
[2017-03-27 12:10] LABS: URINE APPEARANCE CLOUDY; URINE BILIRUBIN NEGATIVE (NEGATIVE); URINE BLOOD NEGATIVE (NEGATIVE); URINE COLOR YELLOW; URINE GLUCOSE (UA) NEGATIVE (NEGATIVE); URINE KETONE NEGATIVE (NEGATIVE); URINE LEUK ESTERASE NEGATIVE (NEGATIVE); URINE NITRITE NEGATIVE (NEGATIVE); URINE PROTEIN NEGATIVE (NEGATIVE); URINE UROBILINOGEN NEGATIVE mg/dL (0.2-1.0)
--- NOTE | 2017-03-27 12:17 | CONSULT ---
[facility] Psychiatric Consult - Data Date of interview: 03/27/17 Admission source: [facility] Identifying data: One of the multiple admissions to [facility] for this 47 y/o AA male seeking detox treatment on for alcohol dependence.Patient is ,a father of two,domiciled,unemployed and supported on food stamps. Substance Abuse History: Confirmed by patient in this interview. Smoking Cessation. Smoking history: Former smoker. Have you smoked in the past 12 months: Yes. Aproximately how many cigarettes per day: 0. If you are a former smoker, when did you quit?: 12/17. Cigars Per Day: 0. Hx Chewing Tobacco Use: No. Initiated information on smoking cessation: Yes. 'Breaking Loose' booklet given: 03/26/17. - Substance & Tx. History. Hx Alcohol Use: Yes. Substance Use Type: Alcohol. Hx Substance Use Treatment: Yes (DETOX: 12/2016; REHAB: 2015). - Substances Abused. Alcohol. Route: Oral. Frequency: Daily. Amount used: Vodka 1 pint, Liquor (4x 40 oz). Age of first use: 17. Date of Last Use: 03/25/17 Medical History: Consistent with GERD,bronchial asthma and liver disease.Noted history of herpes genitalis. Psychiatric History: Onset of psychiatric problems (2006).Diagnosed with Bipolar Disorder.Past admissions to [facility] (2006) and [facility] (2011).Mr Whitmore is still followed by Dr Aguilera at [facility] ([facility]).He is currently maintained on a regimen of remeron 45 mg po hs + trazodone 150 mg po hs + gabapentin 300 mg po tid.Questionable adherence to OPD care.History of a suicide attempt in 2008 (overdose with " pills "). Physical/Sexual Abuse/Trauma History: Patient denies. Additional Comment: Urine Drug Screen Results: BZO-Benzodiazepines.Noted. Mental Status Exam - Mental Status Exam Alert and Oriented to: Time, Place, Person Cognitive Function: Good Patient Appearance: Well Groomed Mood: Hopeful, Euthymic Affect: Appropriate, Normal Range Patient Behavior: Appropriate, Cooperative Speech Pattern: Clear, Appropriate Voice Loudness: Normal Thought Process: Goal Oriented Thought Disorder: Not Present Hallucinations: Denies Suicidal Ideation: Denies Homicidal Ideation: Denies Insight/Judgement: Poor Sleep: Poorly, Difficulty falling asleep Appetite: Good Muscle strength/Tone: Normal Gait/Station: Normal Psychiatric Findings - Problem List ([place] 1, 2,3) (1) Alcohol dependence with uncomplicated withdrawal Current Visit: Yes Status: Acute (2) Nicotine dependence Current Visit: Yes Status: Acute Qualifiers: Nicotine product type: cigarettes Substance use status: uncomplicated Qualified Code(s): F17.210 - Nicotine dependence, cigarettes, uncomplicated (3) Substance induced mood disorder Current Visit: Yes Status: Acute (4) Bipolar disorder Current Visit: Yes Status: Chronic Comment: Self-report.Questionable compliance with medications. (5) Asthma Current Visit: Yes Status: Chronic Qualifiers: Asthma severity: mild intermittent Asthma complication type: uncomplicated Qualified Code(s): J45.20 - Mild intermittent asthma, uncomplicated (6) GERD (gastroesophageal reflux disease) Current Visit: Yes Status: Chronic Qualifiers: Esophagitis presence: without esophagitis Qualified Code(s): K21.9 - Gastro-esophageal reflux disease without esophagitis (7) Insomnia Current Visit: Yes Status: Acute Qualifiers: Insomnia type: primary Qualified Code(s): F51.01 - Primary insomnia - Initial Treatment Plan Initial Treatment Plan: Psychoeducation.Detoxification.Medications : remeron 30 mg po hs + trazodone 150 mg po hs + gabapentin 300 mg po tid.Verified by review of pharmacy claims (scripts dated 02/27/17 at [facility] from Dr Aguilera) .Side effects/benefits of each medication are discussed with the patient.He agrees with careplan.Observation.
[2017-03-27] MEDS: GABAPENTIN 300 MG CAPSULE (FP) PO SCH ×2 (13:50→22:07)
[2017-03-27] MEDS: THIAMINE HCL 100 MG TABLET (FP) PO SCH (22:07)
[2017-03-27] MEDS: MIRTAZAPINE 30 MG TABLET (FP) PO SCH (22:07)
[2017-03-27] MEDS: traZODone HCL 50 MG TABLET (FP) PO SCH (22:07)
[2017-03-28] MEDS: GABAPENTIN 300 MG CAPSULE (FP) PO SCH ×3 (05:30→22:01)
[2017-03-28] MEDS: chlordiazePOXIDE HCL 25 MG CAPSULE PO SCH ×3 (05:30→17:33)
[2017-03-28] MEDS: ALBUTEROL SO4 6.7 GM HFA INHALER IH PRN (05:30)
[2017-03-28] MEDS: PRENATAL VITAMINS W/ FOLIC ACID TABLET (FP) PO SCH (10:06)
--- NOTE | 2017-03-28 11:32 | EKG ---
Test Reason : Blood Pressure : / mmHG Vent. Rate : 096 BPM Atrial Rate : 096 BPM P-R Int : 130 ms QRS Dur : 072 ms QT Int : 368 ms P-R-T Axes : 065 034 040 degrees QTc Int : 464 ms NORMAL SINUS RHYTHM POSSIBLE LEFT ATRIAL ENLARGEMENT BORDERLINE ECG WHEN COMPARED WITH ECG OF 01-JAN-2017 16:21, NO SIGNIFICANT CHANGE WAS FOUND Confirmed by TOO VEGA MD ([id number]) on 03/28/2017 11:32:11 AM Referred By: Confirmed By:TOO VEGA MD
--- NOTE | 2017-03-28 12:20 | PN ---
[facility] CIWA - CIWA Score Nausea/Vomitin-Mild Nausea/No Vomiting Muscle Tremors: 4-Moderate,w/Arms Extend Anxiety: 4-Mod. Anxious/Guarded Agitation: 3 Paroxysmal Sweats: 3 Orientation: 0-Oriented Tacttile Disturbances: 2-Mild Itch/Numbness/Burn Auditory Disturbances: 0-None Visual Disturbances: 0-None Headache: 0-None Present CIWA-Ar Total Score: 17 BHS Progress Note (SOAP) Subjective: Tremors, Anxious, Sweating. Objective: PT. A & O X 3, OBSERVED AMBULATING ON UNIT. NO ACUTE DISTRESS. 03/28/17 12:18 Vital Signs Temperature 96.9 F L 03/28/17 09:13 Pulse Rate 84 03/28/17 09:13 Respiratory Rate 18 03/28/17 09:13 Blood Pressure 107/78 03/28/17 09:13 O2 Sat by Pulse Oximetry (%) Laboratory Tests 03/27/17 03/27/17 03/27/17 07:00 07:00 10:20 WBC 6.0 RBC 5.08 Hgb 14.8 Hct 46.7 MCV 92.0 MCH 29.1 MCHC 31.6 L RDW 14.2 Plt Count 175 D MPV 9.9 Sodium 141 Potassium 4.4 Chloride 104 Carbon Dioxide 28 Anion Gap 9 BUN 12 Creatinine 1.0 Creat Clearance w eGFR > 60 POC Glucometer Random Glucose 72 L Calcium 8.4 L Total Bilirubin 0.5 D AST 38 H D ALT 55 Alkaline Phosphatase 52 D Total Protein 7.2 Albumin 3.9 Urine Color Yellow Urine Appearance Cloudy Urine pH 5.0 Ur Specific [place] 1.025 Urine Protein Negative Urine Glucose (UA) Negative Urine Ketones Negative Urine Blood Negative Urine Nitrite Negative Urine Bilirubin Negative Urine Urobilinogen Negative Ur Leukocyte Esterase Negative 03/28/17 06:22 WBC RBC Hgb Hct MCV MCH MCHC RDW Plt Count MPV Sodium Potassium Chloride Carbon Dioxide Anion Gap BUN Creatinine Creat Clearance w eGFR POC Glucometer 164 Random Glucose Calcium Total Bilirubin AST ALT Alkaline Phosphatase Total Protein Albumin Urine Color Urine Appearance Urine pH Ur Specific [place] Urine Protein Urine Glucose (UA) Urine Ketones Urine Blood Urine Nitrite Urine Bilirubin Urine Urobilinogen Ur Leukocyte Esterase LABS NOTED. RESULT OF BGM ACBK FOR EARLIER TODAY NOTED. CONTINUE TO CHECK DAILY. HGB A1C ORDERED. RPR RESULT PENDING. 03/28/17 12:19 Assessment: 03/28/17 12:19 WITHDRAWAL SYMPTOMS. Plan: CONTINUE DETOX.
[2017-03-28] MEDS: THIAMINE HCL 100 MG TABLET (FP) PO SCH (22:01)
[2017-03-28] MEDS: MIRTAZAPINE 30 MG TABLET (FP) PO SCH (22:01)
[2017-03-28] MEDS: chlordiazePOXIDE 5 MG CAPSULE PO SCH (22:01)
[2017-03-28] MEDS: traZODone HCL 50 MG TABLET (FP) PO SCH (22:01)
[2017-03-29] MEDS: ALBUTEROL SO4 6.7 GM HFA INHALER IH PRN ×2 (05:40→15:44)
[2017-03-29] MEDS: chlordiazePOXIDE 5 MG CAPSULE PO SCH ×3 (05:40→17:07)
[2017-03-29] MEDS: GABAPENTIN 300 MG CAPSULE (FP) PO SCH ×3 (05:40→22:06)
[2017-03-29] MEDS: PRENATAL VITAMINS W/ FOLIC ACID TABLET (FP) PO SCH (10:17)
--- NOTE | 2017-03-29 12:00 | PN ---
BHS Progress Note (SOAP) Subjective: Tremors, Anxious. Objective: PT. A & O X 3, OBSERVED AMBULATING ON UNIT. NO ACUTE DISTRESS. 03/29/17 11:55 Vital Signs Temperature 97.2 F L 03/29/17 09:42 Pulse Rate 88 03/29/17 09:42 Respiratory Rate 20 03/29/17 09:42 Blood Pressure 118/81 03/29/17 09:42 O2 Sat by Pulse Oximetry (%) Laboratory Tests 03/27/17 03/27/17 03/27/17 07:00 07:00 07:00 WBC 6.0 RBC 5.08 Hgb 14.8 Hct 46.7 MCV 92.0 MCH 29.1 MCHC 31.6 L RDW 14.2 Plt Count 175 D MPV 9.9 Sodium 141 Potassium 4.4 Chloride 104 Carbon Dioxide 28 Anion Gap 9 BUN 12 Creatinine 1.0 Creat Clearance w eGFR > 60 POC Glucometer Random Glucose 72 L Hemoglobin A1c % Calcium 8.4 L Total Bilirubin 0.5 D AST 38 H D ALT 55 Alkaline Phosphatase 52 D Total Protein 7.2 Albumin 3.9 Urine Color Urine Appearance Urine pH Ur Specific [place] Urine Protein Urine Glucose (UA) Urine Ketones Urine Blood Urine Nitrite Urine Bilirubin Urine Urobilinogen Ur Leukocyte Esterase RPR Titer Nonreactive 03/27/17 03/28/17 03/29/17 10:20 06:22 06:28 WBC RBC Hgb Hct MCV MCH MCHC RDW Plt Count MPV Sodium Potassium Chloride Carbon Dioxide Anion Gap BUN Creatinine Creat Clearance w eGFR POC Glucometer 164 128 Random Glucose Hemoglobin A1c % Calcium Total Bilirubin AST ALT Alkaline Phosphatase Total Protein Albumin Urine Color Yellow Urine Appearance Cloudy Urine pH 5.0 Ur Specific [place] 1.025 Urine Protein Negative Urine Glucose (UA) Negative Urine Ketones Negative Urine Blood Negative Urine Nitrite Negative Urine Bilirubin Negative Urine Urobilinogen Negative Ur Leukocyte Esterase Negative RPR Titer 03/29/17 07:00 WBC RBC Hgb Hct MCV MCH MCHC RDW Plt Count MPV Sodium Potassium Chloride Carbon Dioxide Anion Gap BUN Creatinine Creat Clearance w eGFR POC Glucometer Random Glucose Hemoglobin A1c % 5.5 Calcium Total Bilirubin AST ALT Alkaline Phosphatase Total Protein Albumin Urine Color Urine Appearance Urine pH Ur Specific [place] Urine Protein Urine Glucose (UA) Urine Ketones Urine Blood Urine Nitrite Urine Bilirubin Urine Urobilinogen Ur Leukocyte Esterase RPR Titer LABS NOTED. RESULT OF HGB A1C DRAWN TODAY NOTED. 03/29/17 11:57 Assessment: 03/29/17 11:55 WITHDRAWAL SYMPTOMS. Plan: CONTINUE DETOX. PATIENT ADVISED TO FOLLOW-UP WITH [employer] TRADER DR. SCHREIBER AT [facility] FOR FURTHER MEDICAL EVALUATION FOR ELEVATED ACBK BGM'S WHILE ADMITTED FOR DETOX. COPIES OF ALL LABWORK DRAWN WHILE PATIENT ADMITTED FOR DETOX GIVEN TO PATIENT PRIOR TO DISCHARGE.
[2017-03-29] MEDS: chlordiazePOXIDE HCL 10 MG CAPSULE PO SCH (22:06)
[2017-03-29] MEDS: PANTOPRAZOLE 20 MG TABLET (FP) PO SCH (22:06)
[2017-03-29] MEDS: THIAMINE HCL 100 MG TABLET (FP) PO SCH (22:06)
[2017-03-29] MEDS: traZODone HCL 50 MG TABLET (FP) PO SCH (22:06)
[2017-03-29] MEDS: MIRTAZAPINE 30 MG TABLET (FP) PO SCH (22:06)
[2017-03-30] MEDS: GABAPENTIN 300 MG CAPSULE (FP) PO SCH (05:16)
[2017-03-30] MEDS: chlordiazePOXIDE HCL 10 MG CAPSULE PO SCH (05:16)
--- NOTE | 2017-03-30 08:39 | DS ---
[facility] Detox Discharge Summary Admission Date: 03/26/17 Discharge Date: 03/30/17 - History Present History: Alcohol Dependence - Physical Exam Results Vital Signs: Vital Signs Temperature 97.6 F 03/30/17 06:05 Pulse Rate 90 03/30/17 06:05 Respiratory Rate 18 03/30/17 06:05 Blood Pressure 115/79 03/30/17 06:05 O2 Sat by Pulse Oximetry (%) - Treatment Hospital Course: Detox Protocol Followed, Detoxed Safely, Responded well, Discharged Condition Good - Medication Discharge Medications: Ambulatory Orders Mirtazapine [Remeron -] 45 mg PO HS #30 tablet 05/04/16 Albuterol Sulfate Inhaler - [Ventolin HFA Inhaler -] 2 inh PO Q4H PRN #1 inhaler 05/08/16 Gabapentin [Neurontin -] 300 mg PO TID #60 capsule 01/03/17 Trazodone HCl [Desyrel -] 150 mg PO HS #30 tablet 01/03/17 Gabapentin [Neurontin -] 300 mg PO TID #60 capsule 03/27/17 Mirtazapine [Remeron -] 45 mg PO HS #60 tablet 03/27/17 Trazodone HCl [Desyrel -] 150 mg PO HS #30 tablet 03/27/17 - Diagnosis (1) Alcohol dependence with uncomplicated withdrawal Current Visit: Yes Status: Chronic (2) Nicotine dependence Current Visit: Yes Status: Chronic Qualifiers: Nicotine product type: cigarettes Substance use status: uncomplicated Qualified Code(s): F17.210 - Nicotine dependence, cigarettes, uncomplicated (3) Asthma Current Visit: Yes Status: Chronic Qualifiers: Asthma severity: mild intermittent Asthma complication type: uncomplicated Qualified Code(s): J45.20 - Mild intermittent asthma, uncomplicated (4) Bipolar disorder Current Visit: Yes Status: Chronic Qualifiers: Most recent bipolar episode type: most recent episode unspecified type (5) GERD (gastroesophageal reflux disease) Current Visit: Yes Status: Chronic Qualifiers: Esophagitis presence: without esophagitis Qualified Code(s): K21.9 - Gastro-esophageal reflux disease without esophagitis - AMA Did Patient Leave Against Medical Advice: No
[2017-03-30] MEDS: PRENATAL VITAMINS W/ FOLIC ACID TABLET (FP) PO SCH (09:56)
[2017-03-30] MEDS: PANTOPRAZOLE 20 MG TABLET (FP) PO SCH (09:56)
[2017-03-30 10:12] VITALS: BP 141/86; PULSE 120; TEMP 97.1
== END 2017-03-30 10:35 | disposition home or self-care (01) | DRG 775 ==
LOC: YASAS 17:28 → Y3N 21:42
PROVIDERS: ADMIT Internal Medicine; ATTEND Internal Medicine
PROC: HZ2ZZZZ Detoxification Services for Substance Abuse Treatment (ICD-10-PCS; principal; 2017-03-30)
DX: F10.230 Alcohol dependence with withdrawal, uncomplicated (principal); F17.210 Nicotine dependence, cigarettes, uncomplicated; F31.9 Bipolar disorder, unspecified; F19.24 Other psychoactive substance dependence with psychoactive substance-induced mood disorder; F51.01 Primary insomnia; K21.9 Gastro-esophageal reflux disease without esophagitis
CPT/HCPCS: 36415; 80053; 81003; 83036; 85027; 86593; 93005; 93010; 94640

== ENCOUNTER 2017-12-18 15:05 | Inpatient (IN) | payer OTHER ==
[2017-12-18 18:08] VITALS: BMI 29.9
[2017-12-18] MEDS ORDERED: MELATONIN 5 MG TABLETS PO PRN (22:00)
[2017-12-18] MEDS ORDERED: ALBUTEROL SO4 18 GM HFA INHALER IH PRN (23:03)
[2017-12-18] MEDS ORDERED: MAG HYDROX/AL HYDROX/SIMETH 30 ML UNIT-DOSE CUP PO PRN (23:04)
[2017-12-18] MEDS ORDERED: P-EPHED 60MG/TRIPROLIDI 2.5MG TABLET PO PRN (23:04)
[2017-12-18] MEDS ORDERED: LOPERAMIDE HCL 2 MG CAPSULE PO PRN (23:04)
[2017-12-18] MEDS ORDERED: NICOTINE POLACRILEX 2 MG GUM BC PRN (23:04)
[2017-12-18] MEDS ORDERED: MENTHOL/PHENOL 1 EACH UD MM PRN (23:04)
[2017-12-18] MEDS ORDERED: hydrOXYzine PAMOATE 50 MG CAPSULE (FP) PO PRN (23:04)
[2017-12-18] MEDS ORDERED: IBUPROFEN 400 MG TABLET (FP) PO PRN (23:04)
[2017-12-18] MEDS ORDERED: MAGNESIUM CITRATE 300 ML BOTTLE PO PRN (23:04)
[2017-12-18] MEDS ORDERED: ACETAMINOPHEN 325 MG TABLET (FP) PO PRN (23:04)
[2017-12-18] MEDS ORDERED: chlordiazePOXIDE HCL 25 MG CAPSULE PO PRN (23:04)
[2017-12-18] MEDS ORDERED: guaiFENesin/D-METHORPHAN HB 10 ML UNIT-DOSE CUPS PO PRN (23:04)
[2017-12-18] MEDS ORDERED: MAGNESIUM HYDROX 2400MG/30ML ORAL SUSPENSION 30 ML CUP PO PRN (23:04)
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
[2017-12-18] MEDS: chlordiazePOXIDE HCL 25 MG CAPSULE PO SCH (23:47)
[2017-12-19] MEDS: chlordiazePOXIDE HCL 25 MG CAPSULE PO SCH ×4 (05:14→22:27)
[2017-12-19] MEDS: PANTOPRAZOLE 20 MG TABLET (FP) PO SCH (10:06)
[2017-12-19] MEDS: PRENATAL VITAMINS W/ FOLIC ACID TABLET (FP) PO SCH (10:06)
[2017-12-19] MEDS: BUDESONIDE/FORMETEROL FUMARATE 160/4.5 mcg INHALER IH SCH ×2 (10:08→22:42)
[2017-12-19 10:14] LABS: HEMATOCRIT 46.5 % (35.4-49); HEMOGLOBIN 15.7 GM/dL (11.7-16.9); MCHC 33.8 g/dl (32.0-35.9); MEAN CELL VOLUME 88.8 fl (80-96); MEAN PLT VOLUME 10.6 fl (7.5-11.1); PLATELET COUNT 101 K/MM3 (134-434); RBC 5.24 M/mm3 (4.00-5.60); RDW 14.4 % (11.9-15.9); WHITE BLOOD COUNT 7.1 K/mm3 (4.0-10.0)
[2017-12-19 10:27] LABS: CHLORIDE 102 mmol/L (98-107); POTASSIUM 3.8 mmol/L (3.5-5.1); SODIUM 137 mmol/L (136-145)
--- NOTE | 2017-12-19 10:51 | CONSULT ---
[facility] Psychiatric Consult - Data Date of interview: 12/19/17 Admission source: [facility] Identifying data: This is one of the multiple admissions to detox for this 47 yo AA father of 2,residing with girlfriend,supported by her. Substance Abuse History: Reports drinking since 17 yo,I pint of vodka,6 beers daily. Medical History: Significant for BA,GERD. Psychiatric History: Patient reports first contact with psychiatrist ABOUT 7 YEARS AGO to address his anxiety,mood instability,drinking problems.He reports 2 psychiatric hospitalizations,2 suicidal attempts in the past.Patient sees psychiatrist at [facility].Current medications:Remeron 45 mg po hs and Trazodone 150 mg po hs. Physical/Sexual Abuse/Trauma History: denies Mental Status Exam - Mental Status Exam Alert and Oriented to: Time, Place, Person Cognitive Function: Grossly Intact Patient Appearance: Unkempt Mood: Irritable Affect: Mood Congruent, Labile Patient Behavior: Cooperative Speech Pattern: Clear Voice Loudness: Normal Thought Process: Goal Oriented Thought Disorder: Not Present Hallucinations: Denies Suicidal Ideation: Denies Homicidal Ideation: Denies Insight/Judgement: Fair Sleep: Fair Appetite: Fair Muscle strength/Tone: Normal Gait/Station: Normal Psychiatric Findings - Problem List ([place] 1, 2,3) (1) Asthma Current Visit: Yes Status: Chronic Qualifiers: Asthma severity: mild (2) GERD (gastroesophageal reflux disease) Current Visit: Yes Status: Chronic Qualifiers: Esophagitis presence: without esophagitis Qualified Code(s): K21.9 - Gastro -esophageal reflux disease without esophagitis (3) Nicotine dependence Current Visit: Yes Status: Chronic Qualifiers: Nicotine product type: cigarettes Substance use status: uncomplicated Qualified Code(s): F17.210 - Nicotine dependence, cigarettes, uncomplicated (4) Substance induced mood disorder Current Visit: Yes Status: Chronic (5) Alcohol dependence Current Visit: Yes Status: Chronic (6) Syncope Current Visit: Yes Status: Inactive - Initial Treatment Plan Initial Treatment Plan: Restart Remeron 45 mg po hs,Trazodone 150 mg po hs.
--- NOTE | 2017-12-19 11:04 | PN ---
S CIWA - CIWA Score Nausea/Vomitin-Mild Nausea/No Vomiting Muscle Tremors: 4-Moderate,w/Arms Extend Anxiety: 4-Mod. Anxious/Guarded Agitation: 4-Moderately Restless Paroxysmal Sweats: 1-Minimal Palms Moist Orientation: 1-Uncertain about Date Tacttile Disturbances: 1-Very Mild Itch/Numbness Auditory Disturbances: 0-None Visual Disturbances: 0-None Headache: 1-Very Mild CIWA-Ar Total Score: 17 BHS Progress Note (SOAP) Subjective: sweat tremor anxiety restlessness gi distress trouble sleeping at night Objective: 12/19/17 11:08 Vital Signs Temperature 97.7 F 12/19/17 10:19 Pulse Rate 88 12/19/17 10:19 Respiratory Rate 16 12/19/17 10:19 Blood Pressure 111/65 12/19/17 10:19 O2 Sat by Pulse Oximetry (%) Laboratory Last Values WBC 7.1 K/mm3 (4.0-10.0) 12/19/17 07:30 RBC 5.24 M/mm3 (4.00-5.60) 12/19/17 07:30 Hgb 15.7 GM/dL (11.7-16.9) 12/19/17 07:30 Hct 46.5 % (35.4-49) 12/19/17 07:30 MCV 88.8 fl (80-96) 12/19/17 07:30 MCH 30.0 pg (25.7-33.7) 12/19/17 07:30 MCHC 33.8 g/dl (32.0-35.9) 12/19/17 07:30 RDW 14.4 % (11.9-15.9) 12/19/17 07:30 Plt Count 101 K/MM3 (134-434) L D 12/19/17 07:30 MPV 10.6 fl (7.5-11.1) 12/19/17 07:30 lab noted Assessment: 12/19/17 11:08 withdrawal sx Plan: continue detox
[2017-12-19 11:59] LABS: ALK PHOS 59 U/L (45-117); BILIRUBIN,TOTAL 2.2 mg/dL (0.2-1.0); BLOOD UREA NITROGEN 11 mg/dL (7-18); CALCIUM 8.4 mg/dL (8.5-10.1); CREATININE 0.9 mg/dL (0.7-1.3); GLUCOSE,RANDOM 72 mg/dL (74-106); SGOT/AST 76 U/L (15-37); TOT PROT 7.5 g/dl (6.4-8.2)
--- NOTE | 2017-12-19 12:03 | EKG ---
Test Reason : Blood Pressure : / mmHG Vent. Rate : 089 BPM Atrial Rate : 089 BPM P-R Int : 130 ms QRS Dur : 076 ms QT Int : 398 ms P-R-T Axes : 052 027 051 degrees QTc Int : 484 ms NORMAL SINUS RHYTHM POSSIBLE LEFT ATRIAL ENLARGEMENT PROLONGED QT ABNORMAL ECG WHEN COMPARED WITH ECG OF 16-JUL-2017 16:38, NO SIGNIFICANT CHANGE WAS FOUND Confirmed by SILVIA BRIGHT, TOO ([id number]) on 12/19/2017 12:02:59 PM Referred By: Confirmed By:TOO VEGA MD
[2017-12-19 12:22] LABS: ANION GAP 11 (8-16); CO2 24 mmol/L (21-32); SGPT/ALT 77 U/L (12-78)
[2017-12-19 17:28] LABS: URINE APPEARANCE CLEAR; URINE BILIRUBIN NEGATIVE (<2.0 mg/dL); URINE COLOR AMBER; URINE GLUCOSE (UA) NEGATIVE (NEGATIVE); URINE KETONE 1+ (NEGATIVE); URINE LEUK ESTERASE NEGATIVE (NEGATIVE); URINE NITRITE NEGATIVE (NEGATIVE); URINE PROTEIN NEGATIVE (NEGATIVE); URINE UROBILINOGEN 4.0 E.U/dl mg/dL (0.2-1.0)
[2017-12-19] MEDS: traZODone HCL 50 MG TABLET (FP) PO SCH (22:26)
[2017-12-19] MEDS: THIAMINE HCL 100 MG TABLET (FP) PO SCH (22:26)
[2017-12-19] MEDS: MIRTAZAPINE 15 MG TABLET (FP) PO SCH (22:26)
[2017-12-20] MEDS: chlordiazePOXIDE HCL 25 MG CAPSULE PO SCH ×3 (05:33→17:19)
--- NOTE | 2017-12-20 09:53 | PN ---
[facility] CIWA - CIWA Score Nausea/Vomitin-Mild Nausea/No Vomiting Muscle Tremors: 4-Moderate,w/Arms Extend Anxiety: 4-Mod. Anxious/Guarded Agitation: 3 Paroxysmal Sweats: 1-Minimal Palms Moist Orientation: 0-Oriented Tacttile Disturbances: 1-Very Mild Itch/Numbness Auditory Disturbances: 0-None Visual Disturbances: 0-None Headache: 0-None Present CIWA-Ar Total Score: 14 BHS Progress Note (SOAP) Subjective: sweat tremor anxiety restlessness gi distress Objective: 12/20/17 09:52 Vital Signs Temperature 97.7 F 12/20/17 06:39 Pulse Rate 76 12/20/17 06:39 Respiratory Rate 20 12/20/17 06:39 Blood Pressure 121/68 12/20/17 06:39 O2 Sat by Pulse Oximetry (%) Laboratory Last Values WBC 7.1 K/mm3 (4.0-10.0) 12/19/17 07:30 RBC 5.24 M/mm3 (4.00-5.60) 12/19/17 07:30 Hgb 15.7 GM/dL (11.7-16.9) 12/19/17 07:30 Hct 46.5 % (35.4-49) 12/19/17 07:30 MCV 88.8 fl (80-96) 12/19/17 07:30 MCH 30.0 pg (25.7-33.7) 12/19/17 07:30 MCHC 33.8 g/dl (32.0-35.9) 12/19/17 07:30 RDW 14.4 % (11.9-15.9) 12/19/17 07:30 Plt Count 101 K/MM3 (134-434) L D 12/19/17 07:30 MPV 10.6 fl (7.5-11.1) 12/19/17 07:30 Sodium 137 mmol/L (136-145) 12/19/17 07:30 Potassium 3.8 mmol/L (3.5-5.1) 12/19/17 07:30 Chloride 102 mmol/L (98-107) 12/19/17 07:30 Carbon Dioxide 24 mmol/L (21-32) 12/19/17 07:30 Anion Gap 11 (8-16) 12/19/17 07:30 BUN 11 mg/dL (7-18) D 12/19/17 07:30 Creatinine 0.9 mg/dL (0.7-1.3) 12/19/17 07:30 Creat Clearance w eGFR > 60 (>60) 12/19/17 07:30 Random Glucose 72 mg/dL (74-106) L D 12/19/17 07:30 Calcium 8.4 mg/dL (8.5-10.1) L 12/19/17 07:30 Total Bilirubin 2.2 mg/dL (0.2-1.0) H D 12/19/17 07:30 AST 76 U/L (15-37) H 12/19/17 07:30 ALT 77 U/L (12-78) 12/19/17 07:30 Alkaline Phosphatase 59 U/L (45-117) 12/19/17 07:30 Total Protein 7.5 g/dl (6.4-8.2) 12/19/17 07:30 Albumin 4.0 g/dl (3.4-5.0) 12/19/17 07:30 Urine Color Leslie 12/19/17 13:40 Urine Appearance Clear 12/19/17 13:40 Urine pH 6.0 (5.0-8.0) 12/19/17 13:40 Ur Specific [place] 1.027 (1.001-1.035) 12/19/17 13:40 Urine Protein Negative (NEGATIVE) 12/19/17 13:40 Urine Glucose (UA) Negative (NEGATIVE) 12/19/17 13:40 Urine Ketones 1+ (NEGATIVE) H 12/19/17 13:40 Urine Blood Negative (NEGATIVE) 12/19/17 13:40 Urine Nitrite Negative (NEGATIVE) 12/19/17 13:40 Urine Bilirubin Negative (<2.0 mg/dL) 12/19/17 13:40 Urine Urobilinogen 4.0 e.u/dl mg/dL (0.2-1.0) 12/19/17 13:40 Ur Leukocyte Esterase Negative (NEGATIVE) 12/19/17 13:40 RPR Titer Nonreactive (NONREACTIVE) 12/19/17 07:30 lab noted Assessment: 12/20/17 09:52 withdrawal sx Plan: continue detox
[2017-12-20] MEDS: PRENATAL VITAMINS W/ FOLIC ACID TABLET (FP) PO SCH (11:12)
[2017-12-20] MEDS: PANTOPRAZOLE 20 MG TABLET (FP) PO SCH (11:12)
[2017-12-20] MEDS: BUDESONIDE/FORMETEROL FUMARATE 160/4.5 mcg INHALER IH SCH ×2 (11:13→23:54)
[2017-12-20] MEDS: traZODone HCL 50 MG TABLET (FP) PO SCH (22:22)
[2017-12-20] MEDS: THIAMINE HCL 100 MG TABLET (FP) PO SCH (22:22)
[2017-12-20] MEDS: chlordiazePOXIDE 5 MG CAPSULE PO SCH (22:22)
[2017-12-20] MEDS: MIRTAZAPINE 15 MG TABLET (FP) PO SCH (22:22)
[2017-12-21] MEDS: chlordiazePOXIDE 5 MG CAPSULE PO SCH ×3 (05:43→17:42)
[2017-12-21] MEDS: PANTOPRAZOLE 20 MG TABLET (FP) PO SCH (10:42)
[2017-12-21] MEDS: PRENATAL VITAMINS W/ FOLIC ACID TABLET (FP) PO SCH (10:42)
[2017-12-21] MEDS: BUDESONIDE/FORMETEROL FUMARATE 160/4.5 mcg INHALER IH SCH ×2 (10:42→23:18)
--- NOTE | 2017-12-21 12:10 | PN ---
[facility] Progress Note (SOAP) Subjective: feeling better no tremor less sweat social with peers in day room Objective: 12/21/17 12:08 Vital Signs Temperature 97.7 F 12/21/17 09:50 Pulse Rate 95 H 12/21/17 09:50 Respiratory Rate 18 12/21/17 09:50 Blood Pressure 123/84 12/21/17 09:50 O2 Sat by Pulse Oximetry (%) Laboratory Last Values WBC 7.1 K/mm3 (4.0-10.0) 12/19/17 07:30 RBC 5.24 M/mm3 (4.00-5.60) 12/19/17 07:30 Hgb 15.7 GM/dL (11.7-16.9) 12/19/17 07:30 Hct 46.5 % (35.4-49) 12/19/17 07:30 MCV 88.8 fl (80-96) 12/19/17 07:30 MCH 30.0 pg (25.7-33.7) 12/19/17 07:30 MCHC 33.8 g/dl (32.0-35.9) 12/19/17 07:30 RDW 14.4 % (11.9-15.9) 12/19/17 07:30 Plt Count 101 K/MM3 (134-434) L D 12/19/17 07:30 MPV 10.6 fl (7.5-11.1) 12/19/17 07:30 Sodium 137 mmol/L (136-145) 12/19/17 07:30 Potassium 3.8 mmol/L (3.5-5.1) 12/19/17 07:30 Chloride 102 mmol/L (98-107) 12/19/17 07:30 Carbon Dioxide 24 mmol/L (21-32) 12/19/17 07:30 Anion Gap 11 (8-16) 12/19/17 07:30 BUN 11 mg/dL (7-18) D 12/19/17 07:30 Creatinine 0.9 mg/dL (0.7-1.3) 12/19/17 07:30 Creat Clearance w eGFR > 60 (>60) 12/19/17 07:30 Random Glucose 72 mg/dL (74-106) L D 12/19/17 07:30 Calcium 8.4 mg/dL (8.5-10.1) L 12/19/17 07:30 Total Bilirubin 2.2 mg/dL (0.2-1.0) H D 12/19/17 07:30 AST 76 U/L (15-37) H 12/19/17 07:30 ALT 77 U/L (12-78) 12/19/17 07:30 Alkaline Phosphatase 59 U/L (45-117) 12/19/17 07:30 Total Protein 7.5 g/dl (6.4-8.2) 12/19/17 07:30 Albumin 4.0 g/dl (3.4-5.0) 12/19/17 07:30 Urine Color Leslie 12/19/17 13:40 Urine Appearance Clear 12/19/17 13:40 Urine pH 6.0 (5.0-8.0) 12/19/17 13:40 Ur Specific [place] 1.027 (1.001-1.035) 12/19/17 13:40 Urine Protein Negative (NEGATIVE) 12/19/17 13:40 Urine Glucose (UA) Negative (NEGATIVE) 12/19/17 13:40 Urine Ketones 1+ (NEGATIVE) H 12/19/17 13:40 Urine Blood Negative (NEGATIVE) 12/19/17 13:40 Urine Nitrite Negative (NEGATIVE) 12/19/17 13:40 Urine Bilirubin Negative (<2.0 mg/dL) 12/19/17 13:40 Urine Urobilinogen 4.0 e.u/dl mg/dL (0.2-1.0) 12/19/17 13:40 Ur Leukocyte Esterase Negative (NEGATIVE) 12/19/17 13:40 RPR Titer Nonreactive (NONREACTIVE) 12/19/17 07:30 lab noted Assessment: 12/21/17 12:10 mild withdrawal sx Plan: medically supervised detox
[2017-12-21] MEDS: traZODone HCL 50 MG TABLET (FP) PO SCH (22:25)
[2017-12-21] MEDS: chlordiazePOXIDE HCL 10 MG CAPSULE PO SCH (22:26)
[2017-12-21] MEDS: THIAMINE HCL 100 MG TABLET (FP) PO SCH (22:26)
[2017-12-21] MEDS: MIRTAZAPINE 15 MG TABLET (FP) PO SCH (22:26)
[2017-12-22] MEDS: chlordiazePOXIDE HCL 10 MG CAPSULE PO SCH (05:41)
[2017-12-22 06:47] VITALS: BP 128/79; PULSE 97; TEMP 96.6
--- NOTE | 2017-12-22 18:36 | PN ---
S Progress Note (SOAP) Subjective: denies any complaint Objective: 12/22/17 18:35 A & O x 3 Vital Signs Temperature 96.6 F L 12/22/17 06:00 Pulse Rate 97 H 12/22/17 06:00 Respiratory Rate 18 12/22/17 06:00 Blood Pressure 128/79 12/22/17 06:00 O2 Sat by Pulse Oximetry (%) Assessment: 12/22/17 18:35 detox successfully completed Plan: for discharge
--- NOTE | 2017-12-22 18:41 | DS ---
[facility] Detox Discharge Summary Admission Date: 12/18/17 Discharge Date: 12/22/17 - History Additional Comments: Pt A & O x 3, for discharge States he is going for aftercare at [facility] Prescription Albuterol earlier sent to his pharmacy - Physical Exam Results Vital Signs: Vital Signs Temperature 96.6 F L 12/22/17 06:00 Pulse Rate 97 H 12/22/17 06:00 Respiratory Rate 18 12/22/17 06:00 Blood Pressure 128/79 12/22/17 06:00 O2 Sat by Pulse Oximetry (%) Pertinent Admission Physical Exam Findings: withdrawal sx - Treatment Hospital Course: Detox Protocol Followed, Detoxed Safely, Responded well, Discharged Condition Good Patient has Accepted a Rehab Referral to: O/P @ [facility] - Medication Discharge Medications: Ambulatory Orders Mirtazapine [Remeron -] 45 mg PO HS #30 tablet 05/04/16 traZODone HCL [Desyrel -] 150 mg PO HS #30 tablet 01/03/17 Fluticasone Propionate [Flovent Diskus] 1 inh IH BID #1 blst.w.dev 07/19/17 Gabapentin [Neurontin -] 300 mg PO TID #60 capsule 07/19/17 Pantoprazole Sodium [Protonix -] 20 mg PO DAILY #30 mg 07/19/17 Mirtazapine [Remeron -] 45 mg PO HS #90 tablet 12/19/17 traZODone HCL [Desyrel -] 150 mg PO HS #90 tablet 12/19/17 Albuterol Sulfate Inhaler - [Ventolin HFA Inhaler -] 2 puff IH Q4H PRN #1 inhaler 12/21/17 - Diagnosis (1) Alcohol dependence with uncomplicated withdrawal Status: Chronic (2) Asthma Status: Chronic Qualifiers: Asthma severity: mild (3) Bipolar disorder Status: Chronic Qualifiers: Most recent bipolar episode type: most recent episode unspecified type (4) GERD (gastroesophageal reflux disease) Status: Chronic Qualifiers: Esophagitis presence: without esophagitis Qualified Code(s): K21.9 - Gastro -esophageal reflux disease without esophagitis (5) Nicotine dependence Status: Chronic Qualifiers: Nicotine product type: cigarettes Substance use status: uncomplicated Qualified Code(s): F17.210 - Nicotine dependence, cigarettes, uncomplicated (6) Substance induced mood disorder Status: Chronic (7) Insomnia Status: Acute Qualifiers: Insomnia type: primary Qualified Code(s): F51.01 - Primary insomnia - AMA Did Patient Leave Against Medical Advice: No
== END 2017-12-22 08:51 | disposition home or self-care (01) | DRG 775 ==
LOC: YASAS 15:05 → Y6N 21:00
PROVIDERS: ADMIT Surgery; ATTEND Surgery
PROC: HZ2ZZZZ Detoxification Services for Substance Abuse Treatment (ICD-10-PCS; principal; 2017-12-18)
DX: F10.230 Alcohol dependence with withdrawal, uncomplicated (principal); F17.210 Nicotine dependence, cigarettes, uncomplicated; F19.24 Other psychoactive substance dependence with psychoactive substance-induced mood disorder; F31.9 Bipolar disorder, unspecified; F51.05 Insomnia due to other mental disorder; K21.9 Gastro-esophageal reflux disease without esophagitis; J45.909 Unspecified asthma, uncomplicated; R55 Syncope and collapse; Z91.5 Personal history of self-harm
CPT/HCPCS: 36415; 80053; 81003; 85027; 86593; 93005; 93010

== ENCOUNTER 2018-01-19 21:16 | Inpatient (IN) | payer OTHER ==
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
[2018-01-19 21:38] VITALS: BMI 30.2
[2018-01-19] MEDS ORDERED: MAGNESIUM HYDROX 2400MG/30ML ORAL SUSPENSION 30 ML CUP PO PRN (21:53)
[2018-01-19] MEDS ORDERED: MAGNESIUM CITRATE 300 ML BOTTLE PO PRN (21:53)
[2018-01-19] MEDS ORDERED: MAG HYDROX/AL HYDROX/SIMETH 30 ML UNIT-DOSE CUP PO PRN (21:53)
[2018-01-19] MEDS ORDERED: IBUPROFEN 400 MG TABLET (FP) PO PRN (21:53)
[2018-01-19] MEDS ORDERED: P-EPHED 60MG/TRIPROLIDI 2.5MG TABLET PO PRN (21:53)
[2018-01-19] MEDS ORDERED: ACETAMINOPHEN 325 MG TABLET (FP) PO PRN (21:53)
[2018-01-19] MEDS ORDERED: MENTHOL/PHENOL 1 EACH UD MM PRN (21:53)
[2018-01-19] MEDS ORDERED: guaiFENesin/D-METHORPHAN HB 10 ML UNIT-DOSE CUPS PO PRN (21:53)
[2018-01-19] MEDS ORDERED: NICOTINE POLACRILEX 2 MG GUM BC PRN (21:53)
[2018-01-19] MEDS ORDERED: LOPERAMIDE HCL 2 MG CAPSULE PO PRN (21:53)
[2018-01-19] MEDS ORDERED: MELATONIN 5 MG TABLETS PO PRN (22:00)
[2018-01-20] MEDS: chlordiazePOXIDE HCL 25 MG CAPSULE PO SCH ×5 (00:39→22:30)
[2018-01-20] MEDS: THIAMINE HCL 100 MG TABLET (FP) PO SCH ×2 (00:43→22:30)
[2018-01-20] MEDS: MIRTAZAPINE 15 MG TABLET (FP) PO SCH (02:30)
[2018-01-20] MEDS: hydrOXYzine PAMOATE 50 MG CAPSULE (FP) PO PRN (03:03)
[2018-01-20 10:24] LABS: HEMATOCRIT 44.6 % (35.4-49); HEMOGLOBIN 14.8 GM/dL (11.7-16.9); MCH 30.2 pg (25.7-33.7); MCHC 33.1 g/dl (32.0-35.9); MEAN CELL VOLUME 91.3 fl (80-96); MEAN PLT VOLUME 10.3 fl (7.5-11.1); PLATELET COUNT 96 K/MM3 (134-434); RBC 4.89 M/mm3 (4.00-5.60); URINE APPEARANCE TURBID; URINE BILIRUBIN NEGATIVE (<2.0 mg/dL); URINE COLOR AMBER; URINE GLUCOSE (UA) NEGATIVE (NEGATIVE); URINE KETONE TRACE (NEGATIVE); URINE LEUK ESTERASE NEGATIVE (NEGATIVE); URINE NITRITE NEGATIVE (NEGATIVE); URINE PROTEIN NEGATIVE (NEGATIVE); URINE UROBILINOGEN NEGATIVE mg/dL (0.2-1.0); WHITE BLOOD COUNT 6.6 K/mm3 (4.0-10.0)
[2018-01-20 10:39] LABS: CHLORIDE 105 mmol/L (98-107); POTASSIUM 3.7 mmol/L (3.5-5.1); SODIUM 140 mmol/L (136-145)
[2018-01-20 10:48] LABS: ALBUMIN 3.7 g/dl (3.4-5.0); ALK PHOS 49 U/L (45-117); ANION GAP 8 (8-16); BILIRUBIN,TOTAL 1.2 mg/dL (0.2-1.0); BLOOD UREA NITROGEN 11 mg/dL (7-18); CALCIUM 8.2 mg/dL (8.5-10.1); CO2 27 mmol/L (21-32); CREATININE 0.9 mg/dL (0.7-1.3); GLUCOSE,RANDOM 77 mg/dL (74-106); SGOT/AST 58 U/L (15-37); SGPT/ALT 60 U/L (12-78)
[2018-01-20] MEDS: PRENATAL VITAMINS W/ FOLIC ACID TABLET (FP) PO SCH (10:54)
--- NOTE | 2018-01-20 11:56 | PN ---
[facility] CIWA - CIWA Score Nausea/Vomitin-Mild Nausea/No Vomiting Muscle Tremors: 4-Moderate,w/Arms Extend Anxiety: 4-Mod. Anxious/Guarded Agitation: 4-Moderately Restless Paroxysmal Sweats: 1-Minimal Palms Moist Orientation: 1-Uncertain about Date Tacttile Disturbances: 2-Mild Itch/Numbness/Burn Auditory Disturbances: 0-None Visual Disturbances: 0-None Headache: 2-Mild CIWA-Ar Total Score: 19 BHS Progress Note (SOAP) Subjective: SWEATING TREMOR IRRITABLE GI DISTRESS ANXIETY RESTLESSNESS Objective: 01/20/18 11:55 Vital Signs Temperature 97.5 F L 01/20/18 09:44 Pulse Rate 73 01/20/18 09:44 Respiratory Rate 18 01/20/18 09:44 Blood Pressure 102/61 01/20/18 09:44 O2 Sat by Pulse Oximetry (%) Laboratory Last Values WBC 6.6 K/mm3 (4.0-10.0) 01/20/18 07:00 RBC 4.89 M/mm3 (4.00-5.60) 01/20/18 07:00 Hgb 14.8 GM/dL (11.7-16.9) 01/20/18 07:00 Hct 44.6 % (35.4-49) 01/20/18 07:00 MCV 91.3 fl (80-96) 01/20/18 07:00 MCH 30.2 pg (25.7-33.7) 01/20/18 07:00 MCHC 33.1 g/dl (32.0-35.9) 01/20/18 07:00 RDW 15.0 % (11.9-15.9) 01/20/18 07:00 Plt Count 96 K/MM3 (134-434) L 01/20/18 07:00 MPV 10.3 fl (7.5-11.1) 01/20/18 07:00 Sodium 140 mmol/L (136-145) 01/20/18 07:00 Potassium 3.7 mmol/L (3.5-5.1) 01/20/18 07:00 Chloride 105 mmol/L (98-107) 01/20/18 07:00 Carbon Dioxide 27 mmol/L (21-32) 01/20/18 07:00 Anion Gap 8 (8-16) 01/20/18 07:00 BUN 11 mg/dL (7-18) 01/20/18 07:00 Creatinine 0.9 mg/dL (0.7-1.3) 01/20/18 07:00 Creat Clearance w eGFR > 60 (>60) 01/20/18 07:00 Random Glucose 77 mg/dL (74-106) 01/20/18 07:00 Calcium 8.2 mg/dL (8.5-10.1) L 01/20/18 07:00 Total Bilirubin 1.2 mg/dL (0.2-1.0) H D 01/20/18 07:00 AST 58 U/L (15-37) H D 01/20/18 07:00 ALT 60 U/L (12-78) D 01/20/18 07:00 Alkaline Phosphatase 49 U/L (45-117) 01/20/18 07:00 Total Protein 7.0 g/dl (6.4-8.2) 01/20/18 07:00 Albumin 3.7 g/dl (3.4-5.0) 01/20/18 07:00 Urine Color [place] 01/20/18 07:00 Urine Appearance Turbid 01/20/18 07:00 Urine pH 5.0 (5.0-8.0) 01/20/18 07:00 Ur Specific [place] 1.025 (1.001-1.035) 01/20/18 07:00 Urine Protein Negative (NEGATIVE) 01/20/18 07:00 Urine Glucose (UA) Negative (NEGATIVE) 01/20/18 07:00 Urine Ketones Trace (NEGATIVE) H 01/20/18 07:00 Urine Blood Negative (NEGATIVE) 01/20/18 07:00 Urine Nitrite Negative (NEGATIVE) 01/20/18 07:00 Urine Bilirubin Negative (<2.0 mg/dL) 01/20/18 07:00 Urine Urobilinogen Negative mg/dL (0.2-1.0) 01/20/18 07:00 Ur Leukocyte Esterase Negative (NEGATIVE) 01/20/18 07:00 LAB NOTED Assessment: 01/20/18 11:55 WITHDRAWAL SX Plan: CONTINUE DETOX
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
[2018-01-20] MEDS: traZODone HCL 50 MG TABLET (FP) PO SCH (22:30)
[2018-01-21] MEDS: hydrOXYzine PAMOATE 50 MG CAPSULE (FP) PO PRN ×2 (05:07→22:21)
[2018-01-21] MEDS: chlordiazePOXIDE HCL 25 MG CAPSULE PO SCH ×3 (05:09→17:23)
[2018-01-21] MEDS: chlordiazePOXIDE HCL 25 MG CAPSULE PO PRN (08:16)
[2018-01-21] MEDS: MIRTAZAPINE 15 MG TABLET (FP) PO SCH (10:13)
[2018-01-21] MEDS: PRENATAL VITAMINS W/ FOLIC ACID TABLET (FP) PO SCH (10:14)
--- NOTE | 2018-01-21 14:30 | PN ---
[facility] CIWA - CIWA Score Nausea/Vomitin-Mild Nausea/No Vomiting Muscle Tremors: 4-Moderate,w/Arms Extend Anxiety: 3 Agitation: 3 Paroxysmal Sweats: 1-Minimal Palms Moist Orientation: 0-Oriented Tacttile Disturbances: 2-Mild Itch/Numbness/Burn Auditory Disturbances: 0-None Visual Disturbances: 0-None Headache: 0-None Present CIWA-Ar Total Score: 14 S Progress Note (SOAP) Subjective: sweat tremor restlessness trouble sleep at night low energy Objective: 01/21/18 14:28 Vital Signs Temperature 97.5 F L 01/21/18 13:52 Pulse Rate 72 01/21/18 13:52 Respiratory Rate 18 01/21/18 13:52 Blood Pressure 117/65 01/21/18 13:52 O2 Sat by Pulse Oximetry (%) Laboratory Last Values WBC 6.6 K/mm3 (4.0-10.0) 01/20/18 07:00 RBC 4.89 M/mm3 (4.00-5.60) 01/20/18 07:00 Hgb 14.8 GM/dL (11.7-16.9) 01/20/18 07:00 Hct 44.6 % (35.4-49) 01/20/18 07:00 MCV 91.3 fl (80-96) 01/20/18 07:00 MCH 30.2 pg (25.7-33.7) 01/20/18 07:00 MCHC 33.1 g/dl (32.0-35.9) 01/20/18 07:00 RDW 15.0 % (11.9-15.9) 01/20/18 07:00 Plt Count 96 K/MM3 (134-434) L 01/20/18 07:00 MPV 10.3 fl (7.5-11.1) 01/20/18 07:00 Sodium 140 mmol/L (136-145) 01/20/18 07:00 Potassium 3.7 mmol/L (3.5-5.1) 01/20/18 07:00 Chloride 105 mmol/L (98-107) 01/20/18 07:00 Carbon Dioxide 27 mmol/L (21-32) 01/20/18 07:00 Anion Gap 8 (8-16) 01/20/18 07:00 BUN 11 mg/dL (7-18) 01/20/18 07:00 Creatinine 0.9 mg/dL (0.7-1.3) 01/20/18 07:00 Creat Clearance w eGFR > 60 (>60) 01/20/18 07:00 Random Glucose 77 mg/dL (74-106) 01/20/18 07:00 Calcium 8.2 mg/dL (8.5-10.1) L 01/20/18 07:00 Total Bilirubin 1.2 mg/dL (0.2-1.0) H D 01/20/18 07:00 AST 58 U/L (15-37) H D 01/20/18 07:00 ALT 60 U/L (12-78) D 01/20/18 07:00 Alkaline Phosphatase 49 U/L (45-117) 01/20/18 07:00 Total Protein 7.0 g/dl (6.4-8.2) 01/20/18 07:00 Albumin 3.7 g/dl (3.4-5.0) 01/20/18 07:00 Urine Color [place] 01/20/18 07:00 Urine Appearance Turbid 01/20/18 07:00 Urine pH 5.0 (5.0-8.0) 01/20/18 07:00 Ur Specific [place] 1.025 (1.001-1.035) 01/20/18 07:00 Urine Protein Negative (NEGATIVE) 01/20/18 07:00 Urine Glucose (UA) Negative (NEGATIVE) 01/20/18 07:00 Urine Ketones Trace (NEGATIVE) H 01/20/18 07:00 Urine Blood Negative (NEGATIVE) 01/20/18 07:00 Urine Nitrite Negative (NEGATIVE) 01/20/18 07:00 Urine Bilirubin Negative (<2.0 mg/dL) 01/20/18 07:00 Urine Urobilinogen Negative mg/dL (0.2-1.0) 01/20/18 07:00 Ur Leukocyte Esterase Negative (NEGATIVE) 01/20/18 07:00 RPR Titer Nonreactive (NONREACTIVE) 01/20/18 07:00 lab noted Assessment: 01/21/18 14:29 withdrawal sx Plan: continue detox
[2018-01-21] MEDS: chlordiazePOXIDE 5 MG CAPSULE PO SCH (22:17)
[2018-01-21] MEDS: THIAMINE HCL 100 MG TABLET (FP) PO SCH (22:17)
[2018-01-21] MEDS: traZODone HCL 50 MG TABLET (FP) PO SCH (22:17)
[2018-01-22] MEDS: chlordiazePOXIDE HCL 25 MG CAPSULE PO PRN (02:56)
[2018-01-22] MEDS: ALBUTEROL SO4 18 GM HFA INHALER IH PRN (03:33)
[2018-01-22] MEDS: chlordiazePOXIDE 5 MG CAPSULE PO SCH ×3 (05:52→17:10)
[2018-01-22] MEDS ORDERED: FLUTICASONE PROPIONATE IH SCH (10:00)
--- NOTE | 2018-01-22 10:05 | PN ---
[facility] Progress Note (SOAP) Subjective: feeling better less sweat no tremor slept through the night Objective: 01/22/18 11:05 Vital Signs Temperature 97.5 F L 01/22/18 09:11 Pulse Rate 88 01/22/18 09:11 Respiratory Rate 18 01/22/18 09:11 Blood Pressure 132/75 01/22/18 09:11 O2 Sat by Pulse Oximetry (%) Laboratory Last Values WBC 6.6 K/mm3 (4.0-10.0) 01/20/18 07:00 RBC 4.89 M/mm3 (4.00-5.60) 01/20/18 07:00 Hgb 14.8 GM/dL (11.7-16.9) 01/20/18 07:00 Hct 44.6 % (35.4-49) 01/20/18 07:00 MCV 91.3 fl (80-96) 01/20/18 07:00 MCH 30.2 pg (25.7-33.7) 01/20/18 07:00 MCHC 33.1 g/dl (32.0-35.9) 01/20/18 07:00 RDW 15.0 % (11.9-15.9) 01/20/18 07:00 Plt Count 96 K/MM3 (134-434) L 01/20/18 07:00 MPV 10.3 fl (7.5-11.1) 01/20/18 07:00 Sodium 140 mmol/L (136-145) 01/20/18 07:00 Potassium 3.7 mmol/L (3.5-5.1) 01/20/18 07:00 Chloride 105 mmol/L (98-107) 01/20/18 07:00 Carbon Dioxide 27 mmol/L (21-32) 01/20/18 07:00 Anion Gap 8 (8-16) 01/20/18 07:00 BUN 11 mg/dL (7-18) 01/20/18 07:00 Creatinine 0.9 mg/dL (0.7-1.3) 01/20/18 07:00 Creat Clearance w eGFR > 60 (>60) 01/20/18 07:00 Random Glucose 77 mg/dL (74-106) 01/20/18 07:00 Calcium 8.2 mg/dL (8.5-10.1) L 01/20/18 07:00 Total Bilirubin 1.2 mg/dL (0.2-1.0) H D 01/20/18 07:00 AST 58 U/L (15-37) H D 01/20/18 07:00 ALT 60 U/L (12-78) D 01/20/18 07:00 Alkaline Phosphatase 49 U/L (45-117) 01/20/18 07:00 Total Protein 7.0 g/dl (6.4-8.2) 01/20/18 07:00 Albumin 3.7 g/dl (3.4-5.0) 01/20/18 07:00 Urine Color [place] 01/20/18 07:00 Urine Appearance Turbid 01/20/18 07:00 Urine pH 5.0 (5.0-8.0) 01/20/18 07:00 Ur Specific [place] 1.025 (1.001-1.035) 01/20/18 07:00 Urine Protein Negative (NEGATIVE) 01/20/18 07:00 Urine Glucose (UA) Negative (NEGATIVE) 01/20/18 07:00 Urine Ketones Trace (NEGATIVE) H 01/20/18 07:00 Urine Blood Negative (NEGATIVE) 01/20/18 07:00 Urine Nitrite Negative (NEGATIVE) 01/20/18 07:00 Urine Bilirubin Negative (<2.0 mg/dL) 01/20/18 07:00 Urine Urobilinogen Negative mg/dL (0.2-1.0) 01/20/18 07:00 Ur Leukocyte Esterase Negative (NEGATIVE) 01/20/18 07:00 RPR Titer Nonreactive (NONREACTIVE) 01/20/18 07:00 lab noted Assessment: 01/22/18 10:05 received pharmacist called that fluticason not available mild withdrawal sx 01/22/18 10:05 01/22/18 11:06 Plan: discontinue fluticasone medically supervised detox
[2018-01-22] MEDS: PRENATAL VITAMINS W/ FOLIC ACID TABLET (FP) PO SCH (10:11)
[2018-01-22] MEDS: MIRTAZAPINE 15 MG TABLET (FP) PO SCH (10:14)
[2018-01-22] MEDS: SODIUM CHLORIDE NASAL SPRAY 44 ML BOTTLE NS SCH (13:23)
--- NOTE | 2018-01-22 14:20 | EKG ---
Test Reason : Blood Pressure : / mmHG Vent. Rate : 077 BPM Atrial Rate : 077 BPM P-R Int : 132 ms QRS Dur : 068 ms QT Int : 408 ms P-R-T Axes : 047 031 040 degrees QTc Int : 461 ms NORMAL SINUS RHYTHM NONSPECIFIC T WAVE ABNORMALITY PROLONGED QT ABNORMAL ECG WHEN COMPARED WITH ECG OF 18-DEC-2017 23:55, NO SIGNIFICANT CHANGE WAS FOUND Confirmed by MD Suzy, Ulises ([id number]) on 01/22/2018 2:20:10 PM Referred By: Patrick Grady Confirmed By:Ulises Almonte MD
[2018-01-22] MEDS ORDERED: MIRTAZAPINE 15 MG TABLET (FP) PO SCH (22:00)
[2018-01-22] MEDS: chlordiazePOXIDE HCL 10 MG CAPSULE PO SCH (22:07)
[2018-01-22] MEDS: traZODone HCL 50 MG TABLET (FP) PO SCH (22:07)
[2018-01-22] MEDS: THIAMINE HCL 100 MG TABLET (FP) PO SCH (22:07)
[2018-01-23] MEDS: ALBUTEROL SO4 18 GM HFA INHALER IH PRN (02:47)
[2018-01-23] MEDS: chlordiazePOXIDE HCL 10 MG CAPSULE PO SCH (05:04)
[2018-01-23] MEDS: SODIUM CHLORIDE NASAL SPRAY 44 ML BOTTLE NS SCH (05:04)
[2018-01-23 06:03] VITALS: BP 130/77; PULSE 100; TEMP 97.7
--- NOTE | 2018-01-23 09:05 | PN ---
[facility] Progress Note (SOAP) Subjective: inproved Objective: 01/23/18 09:03 Vital Signs Temperature 97.7 F 01/23/18 06:03 Pulse Rate 100 H 01/23/18 06:03 Respiratory Rate 20 01/23/18 06:03 Blood Pressure 130/77 01/23/18 06:03 O2 Sat by Pulse Oximetry (%) Laboratory Tests 01/20/18 01/20/18 01/20/18 07:00 07:00 07:00 WBC 6.6 RBC 4.89 Hgb 14.8 Hct 44.6 MCV 91.3 MCH 30.2 MCHC 33.1 RDW 15.0 Plt Count 96 L MPV 10.3 Sodium 140 Potassium 3.7 Chloride 105 Carbon Dioxide 27 Anion Gap 8 BUN 11 Creatinine 0.9 Creat Clearance w eGFR > 60 Random Glucose 77 Calcium 8.2 L Total Bilirubin 1.2 H D AST 58 H D ALT 60 D Alkaline Phosphatase 49 Total Protein 7.0 Albumin 3.7 Urine Color Urine Appearance Urine pH Ur Specific [place] Urine Protein Urine Glucose (UA) Urine Ketones Urine Blood Urine Nitrite Urine Bilirubin Urine Urobilinogen Ur Leukocyte Esterase RPR Titer Nonreactive 01/20/18 07:00 WBC RBC Hgb Hct MCV MCH MCHC RDW Plt Count MPV Sodium Potassium Chloride Carbon Dioxide Anion Gap BUN Creatinine Creat Clearance w eGFR Random Glucose Calcium Total Bilirubin AST ALT Alkaline Phosphatase Total Protein Albumin Urine Color Leslie Urine Appearance Turbid Urine pH 5.0 Ur Specific [place] 1.025 Urine Protein Negative Urine Glucose (UA) Negative Urine Ketones Trace H Urine Blood Negative Urine Nitrite Negative Urine Bilirubin Negative Urine Urobilinogen Negative Ur Leukocyte Esterase Negative RPR Titer pt aox3 in nad ambulating , Assessment: 01/23/18 09:03 withdrawal sx's improved detox completed Plan: d/c today
--- NOTE | 2018-01-23 09:07 | DS ---
[facility] Detox Discharge Summary Admission Date: 01/19/18 Discharge Date: 01/23/18 - History Present History: Alcohol Dependence - Physical Exam Results Vital Signs: Vital Signs Temperature 97.7 F 01/23/18 06:03 Pulse Rate 100 H 01/23/18 06:03 Respiratory Rate 20 01/23/18 06:03 Blood Pressure 130/77 01/23/18 06:03 O2 Sat by Pulse Oximetry (%) - Treatment Hospital Course: Detox Protocol Followed, Detoxed Safely, Responded well, Discharged Condition Good - Medication Discharge Medications: Ambulatory Orders Fluticasone Propionate [Flovent Diskus] 1 inh IH BID #1 blst.w.dev 07/19/17 Mirtazapine [Remeron -] 45 mg PO HS #90 tablet 12/19/17 traZODone HCL [Desyrel -] 150 mg PO HS #90 tablet 12/19/17 Albuterol Sulfate Inhaler - [Ventolin HFA Inhaler -] 2 puff IH Q4H PRN #1 inhaler 01/22/18 Gabapentin [Neurontin -] 300 mg PO TID #60 capsule 01/22/18 - Diagnosis (1) Alcohol dependence with uncomplicated withdrawal Status: Chronic (2) Asthma Status: Chronic Qualifiers: Asthma severity: mild (3) GERD (gastroesophageal reflux disease) Status: Chronic Qualifiers: Esophagitis presence: without esophagitis Qualified Code(s): K21.9 - Gastro -esophageal reflux disease without esophagitis (4) Nicotine dependence Status: Chronic Qualifiers: Nicotine product type: cigarettes Substance use status: uncomplicated Qualified Code(s): F17.210 - Nicotine dependence, cigarettes, uncomplicated (5) Bipolar disorder Status: Suspected Qualifiers: Most recent bipolar episode type: most recent episode unspecified type - AMA Did Patient Leave Against Medical Advice: No
== END 2018-01-23 08:35 | disposition home or self-care (01) | DRG 775 ==
LOC: YASAS 21:16 → Y6N 23:04
PROVIDERS: ADMIT Family Medicine Addiction Medicine; ATTEND Family Medicine Addiction Medicine
PROC: HZ2ZZZZ Detoxification Services for Substance Abuse Treatment (ICD-10-PCS; principal; 2018-01-19)
DX: F10.230 Alcohol dependence with withdrawal, uncomplicated (principal); F17.210 Nicotine dependence, cigarettes, uncomplicated; F31.9 Bipolar disorder, unspecified; F41.9 Anxiety disorder, unspecified; F19.24 Other psychoactive substance dependence with psychoactive substance-induced mood disorder; F33.41 Major depressive disorder, recurrent, in partial remission; K21.9 Gastro-esophageal reflux disease without esophagitis; Z91.5 Personal history of self-harm
CPT/HCPCS: 36415; 80053; 81003; 85027; 86593; 93005; 93010

== ENCOUNTER 2019-08-28 11:04 | Inpatient (IN) | payer OTHER ==
--- NOTE | 2019-08-28 15:08 | PN ---
[facility] Progress Note Note: [facility] Patient is 49 yo male with hx of alcohol dependence is here seeking patient d/t withdrawal sx. Patient reports he was seen today at [facility] ED, did not bring d/c paper work. Reports was in residential [facility] left on pass this past Ladi and relapsed. PMHX: asthma. psych: insomnia, depression and anxiety, reports on trazadone for sleep Denies hx of seizures Reports frequent ETOH blackouts, does not recall last black out MEETS CRITERIA FOR DETOX ADMISSION
[2019-08-28 16:32] VITALS: BMI 29.0
--- NOTE | 2019-08-28 18:18 | HP ---
CIWA Score Nausea/Vomitin-Mild Nausea/No Vomiting Muscle Tremors: 4-Moderate,w/Arms Extend Anxiety: 4-Mod. Anxious/Guarded Agitation: 2 Paroxysmal Sweats: 2 Orientation: 0-Oriented Tacttile Disturbances: 0-None Auditory Disturbances: 0-None Visual Disturbances: 2-Mild Sensitivity Headache: 0-None Present CIWA-Ar Total Score: 15 - Admission Criteria OASAS Guidelines: Admission for Medically Managed Detox: Requires at least one of the followin. CIWA greater than 12 2. Seizures within the past 24 hours 3. Delirium tremens within the past 24 hours 4. Hallucinations within the past 24 hours 5. Acute intervention needed for co occurring medical disorder 6. Acute intervention needed for co occurring psychiatric disorder 7. Severe withdrawal that cannot be handled at a lower level of care (continued vomiting, continued diarrhea, abnormal vital signs) requiring intravenous medication and/or fluids 8. Admitting History and Physical - Smoking History Smoking history: Former smoker Have you smoked in the past 12 months: Yes Aproximately how many cigarettes per day: 0 If you are a former smoker, when did you quit?: 12/17 - Alcohol/Substance Use Hx Alcohol Use: Yes Admission [facility] Allergies/Adverse Reactions: Allergies Allergy/AdvReac Type Severity Reaction Status Date / Time No Known Drug Allergies Allergy Verified 08/28/19 16:20 lactose AdvReac Severe DIARRHEA Verified 08/28/19 16:20 History of Present Illness: 49 y.o. male here requesting detox from etoh use , reports 2 pints vodka /day and beers , relapsed since 2018 , latest use today , current MIKE 0.210 , starts drinking in the mornings . PMHX: asthma. psych: insomnia, depression and anxiety, per pt on trazadone for sleep Exam Limitations: Clinical Condition, Intoxication - Ebola screening Have you traveled outside of the country in the last 21 days: No Have you had contact with anyone from an Ebola affected area: No - Review of Systems Constitutional: Loss of Appetite EENT: reports: No Symptoms Reported Respiratory: reports: See HPI Cardiac: reports: No Symptoms Reported GI: reports: Diarrhea, Nausea, Poor Appetite : reports: No Symptoms Reported Musculoskeletal: reports: Back Pain (chronic back pain) Integumentary: reports: No Symptoms Reported Neuro: reports: Tremors Endocrine: reports: No Symptoms Reported Hematology: reports: No Symptoms Reported Psychiatric: reports: Orientated x3, Agitated, Anxious Patient History - Patient Medical History Hx Anemia: No Hx Asthma: Yes Hx Chronic Obstructive Pulmonary Disease (COPD): No Hx Cancer: No Hx Cardiac Disorders: No Hx Congestive Heart Failure: No Hx Hypertension: No Hx Hypercholesterolemia: No Hx Pacemaker: No HX Cerebrovascular Accident: No Hx Seizures: No Hx Dementia: No Hx Diabetes: No Hx Gastrointestinal Disorders: Yes (acid reflux) Hx Liver Disease: Yes (FATTY LIVER x "few years") Hx Genitourinary Disorders: No Hx Sexually Transmitted Disorders: No Hx Renal Disease (ESRD): No Hx Thyroid Disease: No Hx Human Immunodeficiency Virus (HIV): No Hx Hepatitis C: No Hx Depression: Yes Hx Suicide Attempt: Yes (jumped out of the window in 2010) Hx Bipolar Disorder: No Hx Schizophrenia: No - Patient Surgical History Past Surgical History: No Hx Neurologic Surgery: No Hx Cataract Extraction: No Hx Cardiac Surgery: No Hx Lung Surgery: No Hx Breast Surgery: No Hx Breast Biopsy: No Hx Abdominal Surgery: No Hx Appendectomy: No Hx Cholecystectomy: No Hx Genitourinary Surgery: No Hx Section: No Hx Orthopedic Surgery: No Anesthesia Reaction: No - PPD History Date: 01/03/17 Results: 0 mm - Smoking Cessation Smoking history: Former smoker Have you smoked in the past 12 months: Yes Aproximately how many cigarettes per day: 0 If you are a former smoker, when did you quit?: 12/17 Cigars Per Day: 0 Hx Chewing Tobacco Use: No Initiated information on smoking cessation: No - Substances abused Alcohol Substance route: Oral Frequency: Daily Amount used: 2 pints liquor Age of first use: 17 Date of last use: 08/28/19 Admission Physical Exam BHS - Vital Signs Vital Signs: Vital Signs - 24 hr 08/28/19 16:27 Temperature 97.7 F Pulse Rate 108 H Respiratory 18 Rate Blood Pressure 105/69 - Physical General Appearance: Yes: Mild Distress, Intoxicated, Tremorous, Anxious HEENTM: Yes: EOMI, Hearing grossly Normal, Normocephalic, Normal Voice Respiratory: Yes: Chest Non-Tender, Lungs Clear, Normal Breath Sounds, No Respiratory Distress, No Accessory Muscle Use Neck: Yes: No masses,lesions,Nodules, Trachea in good position Cardiology: Yes: Regular Rhythm, Regular Rate, S1, S2, Tachycardia Abdominal: Yes: Non Tender, Soft Musculoskeletal: Yes: Other (staggering gait) Extremities: Yes: Normal Range of Motion, Non-Tender, Tremors Neurological: Yes: Fully Oriented, Alert, Motor Strength 5/5 Integumentary: Yes: Warm - Diagnostic (1) Alcohol dependence with uncomplicated withdrawal Current Visit: Yes Status: Chronic Breathalyzer - Breathalyzer Breathalyzer: 0.210 Urine Drug Screen - Test Device Lot number: [id number] Expiration date: 03/05/21 - Control Is test valid?: Yes - Results Drug screen NEGATIVE: No Urine drug screen results: BZO-Benzodiazepines Inpatient Rehab Admission - Rehab Decision to Admit Inpatient rehab admission?: No
[2019-08-28] MEDS ORDERED: ALBUTEROL SO4 HFA INHALER IH PRN (18:21)
[2019-08-28] MEDS ORDERED: METHOCARBAMOL 500 MG TABLET PO PRN (18:23)
[2019-08-28] MEDS ORDERED: ACETAMINOPHEN 325 MG TABLET (FP) PO PRN ×2 (18:23)
[2019-08-28] MEDS ORDERED: MAGNESIUM HYDROX 2400MG/30ML ORAL SUSPENSION 30 ML CUP PO PRN (18:23)
[2019-08-28] MEDS ORDERED: MAG HYDROX/AL HYDROX/SIMETH 30 ML UNIT-DOSE CUP PO PRN (18:23)
[2019-08-28] MEDS ORDERED: IBUPROFEN 400 MG TABLET (FP) PO PRN (18:23)
[2019-08-28] MEDS ORDERED: MELATONIN 5 MG TABLETS PO PRN (18:23)
[2019-08-28] MEDS ORDERED: BISMUTH SUBSALICYLATE 524 MG/30 ML UD PO PRN (18:23)
[2019-08-28] MEDS ORDERED: MAGNESIUM CITRATE 300 ML BOTTLE PO PRN (18:23)
[2019-08-28] MEDS ORDERED: MENTHOL/PHENOL 1 EACH UD MM PRN (18:23)
[2019-08-28] MEDS ORDERED: chlordiazePOXIDE HCL 10 MG CAPSULE PO PRN (18:25)
[2019-08-28] MEDS ORDERED: ALBUTEROL SO4 0.083% IH SOL 2.5 MG/3 ML VIAL.NEB. NEB PRN (18:33)
[2019-08-28] MEDS: chlordiazePOXIDE HCL 25 MG CAPSULE PO SCH (20:24)
[2019-08-28] MEDS: BUDESONIDE/FORMETEROL FUMARATE 80/4.5 mcg INHALER IH SCH (22:38)
[2019-08-28] MEDS: THIAMINE HCL 100 MG TABLET (FP) PO SCH (22:38)
[2019-08-29] MEDS: hydrOXYzine PAMOATE 25 MG CAPSULE (FP) PO PRN ×2 (00:43→22:09)
[2019-08-29] MEDS: chlordiazePOXIDE HCL 25 MG CAPSULE PO SCH ×3 (05:47→22:08)
[2019-08-29 09:50] LABS: HEMATOCRIT 45.8 % (35.4-49); MCH 30.1 pg (25.7-33.7); MCHC 32.8 g/dl (32.0-35.9); MEAN CELL VOLUME 91.9 fl (80-96); PLATELET COUNT 128 K/MM3 (134-434); RBC 4.98 M/mm3 (4.00-5.60); RDW 14.9 % (11.9-15.9); WHITE BLOOD COUNT 7.4 K/mm3 (4.0-10.0)
[2019-08-29 10:03] LABS: ALBUMIN 3.8 g/dl (3.4-5.0); BILIRUBIN,TOTAL 1.2 mg/dL (0.2-1); CALCIUM 8.6 mg/dL (8.5-10.1); CREATININE 0.9 mg/dL (0.55-1.3); POTASSIUM 4.1 mmol/L (3.5-5.1); TOT PROT 7.2 g/dl (6.4-8.2)
[2019-08-29] MEDS: BUDESONIDE/FORMETEROL FUMARATE 80/4.5 mcg INHALER IH SCH ×2 (10:37→22:08)
[2019-08-29] MEDS: PRENATAL VITAMINS W/ FOLIC ACID TABLET (FP) PO SCH (10:38)
--- NOTE | 2019-08-29 12:24 | CONSULT ---
[facility] Psychiatric Consult - Data Date of interview: 08/29/19 Admission source: [facility] Identifying data: Revisit to [facility] and admission to [address] [place] [address] for this 49 y/o AA male self-referred for detoxification treatment. ISAÍAS issue : alcohol withdrawal. Patient is , a father of two, domiciled and currently employed (self-report). Substance Abuse History: Discussed with patient. Details in current [facility] report as follows : Smoking history: Former smoker. Have you smoked in the past 12 months: Yes. Aproximately how many cigarettes per day: 0. If you are a former smoker, when did you quit?: 12/17. Cigars Per Day: 0. Hx Chewing Tobacco Use: No. Initiated information on smoking cessation: No. - Substances abused. Alcohol. Substance route: Oral. Frequency: Daily. Amount used: 2 pints liquor. Age of first use: 17. Date of last use: 08/28/19 Medical History: Medical profile is remarkable for bronchial asthma, GERD and liver disease. Noted history of herpes genitalis. Psychiatric History: Patient is frequent user of ISAÍAS services at [facility]. Onset of psychiatric problems (2006). In this interview, he endorses diagnoses of MDD and Anxiety Disorder + psychiatric hospitalizations at [facility] ( 2006) and [facility] (2011). Mr Whitmore declares that he got discharged from a long-term rehabilitation program ([facility] in [facility]) in July 2019 after ten months of treatment. Still followed by Dr Aguilera at [facility] ( [facility]) on a regimen of trazodone 200 mg/hs. Patient is questionable historian. Doubtful adherence to OPD care. He reports a history of one suicide attempt in 2008 (overdose with " pills "). Physical/Sexual Abuse/Trauma History: Patient denies. Additional Comment: Urine drug screen results: BZO-Benzodiazepines. Noted. Mental Status Exam - Mental Status Exam Alert and Oriented to: Time, Place, Person Cognitive Function: Good Patient Appearance: Well Groomed Mood: Nervous, Withdrawn Affect: Mood Congruent, Constricted Patient Behavior: Fatigued, Appropriate, Cooperative Speech Pattern: Clear Voice Loudness: Normal Thought Process: Goal Oriented Thought Disorder: Not Present Hallucinations: Denies Suicidal Ideation: Denies Homicidal Ideation: Denies Insight/Judgement: Poor Sleep: Poorly, Difficulty falling asleep Appetite: Good Gait/Station: Normal Psychiatric Findings - Problem List ([place] 1, 2,3) (1) Alcohol dependence with uncomplicated withdrawal Current Visit: Yes Status: Acute (2) Substance induced mood disorder Current Visit: Yes Status: Chronic (3) History of depression Current Visit: Yes Status: Chronic (4) Insomnia Current Visit: Yes Status: Chronic Qualifiers: Insomnia type: primary Qualified Code(s): F51.01 - Primary insomnia (5) Non-compliance Current Visit: Yes Status: Chronic - Initial Treatment Plan Initial Treatment Plan: Psychoeducation. Sleep hygiene. Detoxification in progress. Resumed at patient's request : trazodone 100 mg po hs. Side effects/ benefits discussed. Made aware of potential for priapism. Verbal consent granted to MD. Johnson.
--- NOTE | 2019-08-29 12:48 | PN ---
S CIWA - CIWA Score Nausea/Vomitin Muscle Tremors: 2 Anxiety: 3 Agitation: 0-Normal Activity Paroxysmal Sweats: 2 Orientation: 0-Oriented Tacttile Disturbances: 1-Very Mild Itch/Numbness Auditory Disturbances: 0-None Visual Disturbances: 0-None Headache: 1-Very Mild CIWA-Ar Total Score: 12 BHS Progress Note (SOAP) Subjective: Patient is 49 yo male with hx of alcohol dependence currently on librium detox protocol c/o of diarrhea , insomnia, poor apatite and nausea. Denies abdominal pain / tenderness, melena or vertigo. Objective: 08/29/19 12:47 Vital Signs Temperature 97.4 F L 08/29/19 09:15 Pulse Rate 82 08/29/19 09:15 Respiratory Rate 18 08/29/19 09:15 Blood Pressure 132/70 08/29/19 09:15 O2 Sat by Pulse Oximetry (%) Laboratory Last Values WBC 7.4 K/mm3 (4.0-10.0) 08/29/19 07:30 RBC 4.98 M/mm3 (4.00-5.60) 08/29/19 07:30 Hgb 15.0 GM/dL (11.7-16.9) 08/29/19 07:30 Hct 45.8 % (35.4-49) 08/29/19 07:30 MCV 91.9 fl (80-96) 08/29/19 07:30 MCH 30.1 pg (25.7-33.7) 08/29/19 07:30 MCHC 32.8 g/dl (32.0-35.9) 08/29/19 07:30 RDW 14.9 % (11.9-15.9) 08/29/19 07:30 Plt Count 128 K/MM3 (134-434) L D 08/29/19 07:30 MPV 11.0 fl (7.5-11.1) 08/29/19 07:30 Sodium 138 mmol/L (136-145) 08/29/19 07:30 Potassium 4.1 mmol/L (3.5-5.1) 08/29/19 07:30 Chloride 102 mmol/L (98-107) 08/29/19 07:30 Carbon Dioxide 31 mmol/L (21-32) 08/29/19 07:30 Anion Gap 6 MMOL/L (8-16) L 08/29/19 07:30 BUN 12.0 mg/dL (7-18) 08/29/19 07:30 Creatinine 0.9 mg/dL (0.55-1.3) 08/29/19 07:30 Est GFR (CKD-EPI)AfAm 117.47 08/29/19 07:30 Est GFR (CKD-EPI)NonAf 101.35 08/29/19 07:30 Random Glucose 81 mg/dL (74-106) 08/29/19 07:30 Calcium 8.6 mg/dL (8.5-10.1) 08/29/19 07:30 Total Bilirubin 1.2 mg/dL (0.2-1) H 08/29/19 07:30 AST 63 U/L (15-37) H 08/29/19 07:30 ALT 67 U/L (13-61) H 08/29/19 07:30 Alkaline Phosphatase 47 U/L (45-117) 08/29/19 07:30 Total Protein 7.2 g/dl (6.4-8.2) 08/29/19 07:30 Albumin 3.8 g/dl (3.4-5.0) 08/29/19 07:30 Assessment: 08/29/19 14:01 Patient is Aox3 no acute distress EENT WNL no abdominal tenderness skin intact no edema, erythema or purpura withdrawal sx low platelets d/t to chronic alcohol abuse Plan: mild elevated LFTS d/c acetaminophen repeat platelets d/c ibuprofen d/t low platelets increase fluids continue detox MAT reviewed Patient to follow up with primary care provider upon discharge continue to monitor
[2019-08-29] MEDS ORDERED: GABAPENTIN 100 MG CAPSULE PO PRN (14:05)
[2019-08-29] MEDS: THIAMINE HCL 100 MG TABLET (FP) PO SCH (22:08)
[2019-08-29] MEDS: traZODone HCL 100 MG TABLET (FP) PO SCH (22:08)
[2019-08-30] MEDS: chlordiazePOXIDE 5 MG CAPSULE PO SCH ×3 (05:13→22:13)
[2019-08-30] MEDS: PRENATAL VITAMINS W/ FOLIC ACID TABLET (FP) PO SCH (10:29)
[2019-08-30] MEDS: BUDESONIDE/FORMETEROL FUMARATE 80/4.5 mcg INHALER IH SCH ×2 (10:29→22:13)
--- NOTE | 2019-08-30 10:40 | PN ---
S CIWA - CIWA Score Nausea/Vomitin-No Nausea/No Vomiting Muscle Tremors: 2 Anxiety: 3 Agitation: 0-Normal Activity Paroxysmal Sweats: 3 Orientation: 0-Oriented Tacttile Disturbances: 0-None Auditory Disturbances: 0-None Visual Disturbances: 0-None Headache: 2-Mild CIWA-Ar Total Score: 10 BHS Progress Note (SOAP) Subjective: c/o shakes, sweats, headache, and anxiety. Objective: 08/30/19 10:38 Vital Signs 08/30/19 08/30/19 08/30/19 03:30 06:18 09:06 Temperature 97.1 F L 97.0 F L Pulse Rate 67 81 Respiratory 18 18 18 Rate Blood Pressure 120/69 92/59 L Laboratory Last Values WBC 7.4 K/mm3 (4.0-10.0) 08/29/19 07:30 RBC 4.98 M/mm3 (4.00-5.60) 08/29/19 07:30 Hgb 15.0 GM/dL (11.7-16.9) 08/29/19 07:30 Hct 45.8 % (35.4-49) 08/29/19 07:30 MCV 91.9 fl (80-96) 08/29/19 07:30 MCH 30.1 pg (25.7-33.7) 08/29/19 07:30 MCHC 32.8 g/dl (32.0-35.9) 08/29/19 07:30 RDW 14.9 % (11.9-15.9) 08/29/19 07:30 Plt Count 128 K/MM3 (134-434) L D 08/29/19 07:30 MPV 11.0 fl (7.5-11.1) 08/29/19 07:30 Sodium 138 mmol/L (136-145) 08/29/19 07:30 Potassium 4.1 mmol/L (3.5-5.1) 08/29/19 07:30 Chloride 102 mmol/L (98-107) 08/29/19 07:30 Carbon Dioxide 31 mmol/L (21-32) 08/29/19 07:30 Anion Gap 6 MMOL/L (8-16) L 08/29/19 07:30 BUN 12.0 mg/dL (7-18) 08/29/19 07:30 Creatinine 0.9 mg/dL (0.55-1.3) 08/29/19 07:30 Est GFR (CKD-EPI)AfAm 117.47 08/29/19 07:30 Est GFR (CKD-EPI)NonAf 101.35 08/29/19 07:30 Random Glucose 81 mg/dL (74-106) 08/29/19 07:30 Calcium 8.6 mg/dL (8.5-10.1) 08/29/19 07:30 Total Bilirubin 1.2 mg/dL (0.2-1) H 08/29/19 07:30 AST 63 U/L (15-37) H 08/29/19 07:30 ALT 67 U/L (13-61) H 08/29/19 07:30 Alkaline Phosphatase 47 U/L (45-117) 08/29/19 07:30 Total Protein 7.2 g/dl (6.4-8.2) 08/29/19 07:30 Albumin 3.8 g/dl (3.4-5.0) 08/29/19 07:30 RPR Titer Nonreactive (NONREACTIVE) 08/29/19 07:30 Labs noted. Issues already addressed by previous provider. Assessment: 08/30/19 10:40 AOX3, in no acute respiratory distress. Full ROM, ambulating in the unit. Withdrawal symptoms. Plan: continue detox.
[2019-08-30 11:15] LABS: HEMATOCRIT 44.1 % (35.4-49); HEMOGLOBIN 14.3 GM/dL (11.7-16.9); MCH 29.8 pg (25.7-33.7); MCHC 32.5 g/dl (32.0-35.9); MEAN CELL VOLUME 91.7 fl (80-96); MEAN PLT VOLUME 10.7 fl (7.5-11.1); PLATELET COUNT 121 K/MM3 (134-434); RBC 4.81 M/mm3 (4.00-5.60); RDW 14.6 % (11.9-15.9); WHITE BLOOD COUNT 5.4 K/mm3 (4.0-10.0)
[2019-08-30] MEDS: traZODone HCL 100 MG TABLET (FP) PO SCH (22:13)
[2019-08-30] MEDS: THIAMINE HCL 100 MG TABLET (FP) PO SCH (22:13)
[2019-08-31] MEDS ORDERED: chlordiazePOXIDE HCL 10 MG CAPSULE PO PRN
[2019-08-31] MEDS ORDERED: chlordiazePOXIDE HCL 10 MG CAPSULE PO SCH (05:00)
[2019-08-31 09:21] VITALS: BP 104/70; PULSE 82; TEMP 97.3
--- NOTE | 2019-08-31 09:53 | DS ---
[facility] Detox Discharge Summary Admission Date: 08/28/19 Discharge Date: 08/31/19 - History Present History: Alcohol Dependence Additional Comments: 49 years old male admitted on 08/28/19 for alcohol withdrawal sx management treated with librium detox regimen patient is alert oriented x 3 speech clear ly coherently ambulating stead gait seen by psychiatrist poly fajardo respiratory clear lungs bilaterally on auscultation abdomen soft round no rebound tenderness skin warm and dry Pertinent Past History: patient prefers to leave the detox one day early as per estimated discharge date of 09/01/19 patient speeches clearly coherently steady gait case discussed with the nurse routine discharge is appropriated - Physical Exam Results Vital Signs: Vital Signs Temperature 97.3 F L 08/31/19 09:20 Pulse Rate 82 08/31/19 09:20 Respiratory Rate 18 08/31/19 09:20 Blood Pressure 104/70 08/31/19 09:20 O2 Sat by Pulse Oximetry (%) Pertinent Admission Physical Exam Findings: alcohol withdrawal Laboratory Last Values WBC 5.4 K/mm3 (4.0-10.0) 08/30/19 08:00 RBC 4.81 M/mm3 (4.00-5.60) 08/30/19 08:00 Hgb 14.3 GM/dL (11.7-16.9) 08/30/19 08:00 Hct 44.1 % (35.4-49) 08/30/19 08:00 MCV 91.7 fl (80-96) 08/30/19 08:00 MCH 29.8 pg (25.7-33.7) 08/30/19 08:00 MCHC 32.5 g/dl (32.0-35.9) 08/30/19 08:00 RDW 14.6 % (11.9-15.9) 08/30/19 08:00 Plt Count 121 K/MM3 (134-434) L 08/30/19 08:00 MPV 10.7 fl (7.5-11.1) 08/30/19 08:00 Sodium 138 mmol/L (136-145) 08/29/19 07:30 Potassium 4.1 mmol/L (3.5-5.1) 08/29/19 07:30 Chloride 102 mmol/L (98-107) 01/24/20 07:30 Carbon Dioxide 31 mmol/L (21-32) 08/29/19 07:30 Anion Gap 6 MMOL/L (8-16) L 08/29/19 07:30 BUN 12.0 mg/dL (7-18) 08/29/19 07:30 Creatinine 0.9 mg/dL (0.55-1.3) 08/29/19 07:30 Est GFR (CKD-EPI)AfAm 117.47 08/29/19 07:30 Est GFR (CKD-EPI)NonAf 101.35 08/29/19 07:30 Random Glucose 81 mg/dL (74-106) 08/29/19 07:30 Calcium 8.6 mg/dL (8.5-10.1) 08/29/19 07:30 Total Bilirubin 1.2 mg/dL (0.2-1) H 08/29/19 07:30 AST 63 U/L (15-37) H 08/29/19 07:30 ALT 67 U/L (13-61) H 08/29/19 07:30 Alkaline Phosphatase 47 U/L (45-117) 08/29/19 07:30 Total Protein 7.2 g/dl (6.4-8.2) 08/29/19 07:30 Albumin 3.8 g/dl (3.4-5.0) 08/29/19 07:30 RPR Titer Nonreactive (NONREACTIVE) 08/29/19 07:30 lab noted - Treatment Hospital Course: Detox Protocol Followed, Detoxed Safely, Responded well, Discharged Condition Good, Rehab Referral Accepted Patient has Accepted a Rehab Referral to: [facility] - Medication Discharge Medications: Ambulatory Orders Mirtazapine [Remeron -] 45 mg PO HS #90 tablet 12/19/17 Albuterol Sulfate Inhaler - [Ventolin HFA Inhaler -] 2 puff IH Q4H PRN #1 inhaler 01/22/18 Gabapentin [Neurontin -] 300 mg PO TID #60 capsule 01/22/18 Budesonide/Formeterol Fumarate [SYMBICORT 80/4.5mcg -] 1 puff PO BID 08/28/19 traZODone HCL [Desyrel -] 200 mg PO HS #90 tablet 08/28/19 - Diagnosis (1) Alcohol dependence with uncomplicated withdrawal Status: Acute (2) Asthma Status: Chronic Qualifiers: Asthma severity: mild Asthma persistence: intermittent Asthma complication type: with status asthmaticus Qualified Code(s): J45.22 - Mild intermittent asthma with status asthmaticus (3) GERD (gastroesophageal reflux disease) Status: Chronic Qualifiers: Esophagitis presence: without esophagitis Qualified Code(s): K21.9 - Gastro -esophageal reflux disease without esophagitis (4) Nicotine dependence Status: Acute Qualifiers: Nicotine product type: cigarettes Substance use status: in withdrawal Qualified Code(s): F17.213 - Nicotine dependence, cigarettes, with withdrawal (5) Substance induced mood disorder Status: Suspected - AMA Did Patient Leave Against Medical Advice: No CIWA Score - CIWA Score Nausea/Vomitin-No Nausea/No Vomiting Muscle Tremors: 1-None Visible, but [place] Anxiety: 2 Agitation: 0-Normal Activity Paroxysmal Sweats: 2 Orientation: 0-Oriented Tacttile Disturbances: 0-None Auditory Disturbances: 0-None Visual Disturbances: 0-None Headache: 0-None Present CIWA-Ar Total Score: 5
[2019-09-01] MEDS ORDERED: chlordiazePOXIDE HCL 10 MG CAPSULE PO ONE (05:00)
== END 2019-08-31 09:48 | disposition home or self-care (01) | DRG 775 ==
LOC: YASAS 11:04 → Y3N 19:48
PROVIDERS: ADMIT Allergy & Immunology; ATTEND Allergy & Immunology
PROC: HZ2ZZZZ Detoxification Services for Substance Abuse Treatment (ICD-10-PCS; principal; 2019-08-28)
DX: F10.230 Alcohol dependence with withdrawal, uncomplicated (principal); F10.220 Alcohol dependence with intoxication, uncomplicated; F17.213 Nicotine dependence, cigarettes, with withdrawal; F19.24 Other psychoactive substance dependence with psychoactive substance-induced mood disorder; F51.01 Primary insomnia; K21.9 Gastro-esophageal reflux disease without esophagitis; J45.22 Mild intermittent asthma with status asthmaticus; D69.6 Thrombocytopenia, unspecified; K76.0 Fatty (change of) liver, not elsewhere classified; R00.0 Tachycardia, unspecified; Z87.438 Personal history of other diseases of male genital organs; Z91.19 Patient's noncompliance with other medical treatment and regimen; Z91.011 Allergy to milk products
CPT/HCPCS: 36415; 80053; 85027; 86593

== ENCOUNTER 2020-04-08 09:39 | Inpatient (IN) | payer OTHER ==
--- NOTE | 2020-04-08 11:18 | BHS.RME ---
Substance Use & Tx History - Substance Use History Alcohol Substance amount: 1 pint vodka + six pack beers Frequency of use: Daily Substance route: Oral Date of Last Use: 04/08/20 (4am) Nicotine Substance amount: former smoker Physical/Psych/Mental Status - Behavior General Behavior: Increased activity (restlessness, agitation) Eye Contact: Normal - Cooperativeness Cooperativeness: Cooperative - Thinking Thought Processes: Tight, Logical, Goal Directed Thought content: Future oriented - Physical Health Problems Is patient presently having any pain?: No Does patient presently have any injuries (include location): No Does patient currently have a fever: No Is patient : No CIWA Nausea/Vomitin-Int. Nausea w/Dry Heave Muscle Tremors: 3 Anxiety: 4-Mod. Anxious/Guarded Agitation: 4-Moderately Restless Paroxysmal Sweats: 4-Forehead w/Sweat Beads Orientation: 0-Oriented Tacttile Disturbances: 0-None Auditory Disturbances: 0-None Visual Disturbances: 1-Very Mild Sensitivity Headache: 2-Mild CIWA-Ar Total Score: 22
[2020-04-08 11:29] VITALS: BMI 27.6
--- NOTE | 2020-04-08 11:37 | HP ---
CIWA Score Nausea/Vomitin-Int. Nausea w/Dry Heave Muscle Tremors: 3 Anxiety: 4-Mod. Anxious/Guarded Agitation: 4-Moderately Restless Paroxysmal Sweats: 4-Forehead w/Sweat Beads Orientation: 0-Oriented Tacttile Disturbances: 0-None Auditory Disturbances: 0-None Visual Disturbances: 1-Very Mild Sensitivity Headache: 2-Mild CIWA-Ar Total Score: 22 - Admission Criteria OASAS Guidelines: Admission for Medically Managed Detox: Requires at least one of the followin. CIWA greater than 12 2. Seizures within the past 24 hours 3. Delirium tremens within the past 24 hours 4. Hallucinations within the past 24 hours 5. Acute intervention needed for co occurring medical disorder 6. Acute intervention needed for co occurring psychiatric disorder 7. Severe withdrawal that cannot be handled at a lower level of care (continued vomiting, continued diarrhea, abnormal vital signs) requiring intravenous medication and/or fluids 8. Admitting History and Physical - Admission Chief Complaint: Mr. Whitmore is a 50 yo man who presents to [facility] requesting detox from alcohol. History of Present Illness: Mr. Whitmore is a 50 yo man who presents to [facility] requesting detox from alcohol. He was last here between August 28 and 2019. He left early but, completed detox. PMH: Asthma, LFTs elevated, ? fatty liver, herniated lumbar disc PSH: umbilical hernia Psych: depression and anxiety, stopped taking meds on his own 2 months ago SoC: lives with GF in an apartment Legal: none except child support Substance Use History Alcohol Substance amount: 1 pint vodka + six pack beers Frequency of use: Daily Substance route: Oral Date of Last Use: 04/08/20 (4am) First use age 17y No seizures Blackouts, multiple, last one yesterday Admits to eye [employer]her [employer] Nicotine Substance amount: former smoker History Source: Patient Limitations to Obtaining History: No Limitations - Smoking History Smoking history: Former smoker Have you smoked in the past 12 months: Yes Aproximately how many cigarettes per day: 0 If you are a former smoker, when did you quit?: 12/17 - Alcohol/Substance Use Hx Alcohol Use: Yes Admission ROS [facility] Allergies/Adverse Reactions: Allergies Allergy/AdvReac Type Severity Reaction Status Date / Time No Known Drug Allergies Allergy Verified 04/08/20 11:53 lactose AdvReac Severe DIARRHEA Verified 04/08/20 11:53 Exam Limitations: No Limitations - Ebola screening Have you traveled outside of the country in the last 21 days: No Have you been sick,other than usual withdrawal symptoms: No Do you have a fever: No - Review of Systems Constitutional: No Symptoms Reported EENT: reports: No Symptoms Reported Respiratory: reports: No Symptoms reported Cardiac: reports: No Symptoms Reported GI: reports: No Symptoms Reported : reports: No Symptoms Reported Musculoskeletal: reports: No Symptoms Reported Integumentary: reports: No Symptoms Reported Neuro: reports: No Symptoms reported Endocrine: reports: No Symptoms Reported Hematology: reports: No Symptoms Reported Psychiatric: reports: Anxious Patient History - Patient Medical History Hx Anemia: No Hx Asthma: Yes Hx Chronic Obstructive Pulmonary Disease (COPD): No Hx Cancer: No Hx Cardiac Disorders: No Hx Congestive Heart Failure: No Hx Hypertension: No Hx Hypercholesterolemia: No Hx Pacemaker: No HX Cerebrovascular Accident: No Hx Seizures: No Hx Dementia: No Hx Diabetes: No Hx Gastrointestinal Disorders: Yes (acid reflux) Hx Liver Disease: Yes (FATTY LIVER x "few years") Hx Genitourinary Disorders: No Hx Sexually Transmitted Disorders: No Hx Renal Disease (ESRD): No Hx Thyroid Disease: No Hx Human Immunodeficiency Virus (HIV): No Hx Hepatitis C: No Hx Depression: Yes Hx Suicide Attempt: Yes (jumped out of the window in 2010) Hx Bipolar Disorder: No Hx Schizophrenia: No - Patient Surgical History Past Surgical History: No Hx Neurologic Surgery: No Hx Cataract Extraction: No Hx Cardiac Surgery: No Hx Lung Surgery: No Hx Breast Surgery: No Hx Breast Biopsy: No Hx Abdominal Surgery: No Hx Appendectomy: No Hx Cholecystectomy: No Hx Genitourinary Surgery: No Hx Section: No Hx Orthopedic Surgery: No Anesthesia Reaction: No - PPD History Date: 08/30/19 Results: 0 mm - Smoking Cessation Smoking history: Former smoker Have you smoked in the past 12 months: Yes Aproximately how many cigarettes per day: 0 If you are a former smoker, when did you quit?: 5/14 Cigars Per Day: 0 Hx Chewing Tobacco Use: No Initiated information on smoking cessation: No Admission Physical Exam BHS - Vital Signs Vital Signs: Vital Signs - 24 hr 04/08/20 11:27 Temperature 97.6 F Pulse Rate 109 H Respiratory 16 Rate Blood Pressure 128/85 - Physical General Appearance: Yes: No Apparent Distress, Nourished, Intoxicated, Tremorous, Anxious HEENTM: Yes: EOMI, Hearing grossly Normal, Normocephalic, Normal Voice Respiratory: Yes: Normal Breath Sounds, No Respiratory Distress, No Accessory Muscle Use Neck: Yes: Within Normal Limits, Supple Breast: Yes: Breast Exam Deferred Cardiology: Yes: Regular Rhythm, Regular Rate Abdominal: Yes: Normal Bowel Sounds, Non Tender, Flat, Soft Genitourinary: Yes: Other (deferred) Back: Yes: Normal Inspection Musculoskeletal: Yes: Gait Steady Extremities: Yes: Normal Inspection, Non-Tender Neurological: Yes: Alert, Normal Response Integumentary: Yes: Normal Color, Dry, Warm, Other (circular, raised rim, skin lesion just caudal to manubrium, ~ 1") - Diagnostic (1) Transaminitis Current Visit: Yes Status: Acute (2) Alcohol dependence with uncomplicated withdrawal Current Visit: Yes Status: Acute (3) Asthma Current Visit: Yes Status: Chronic Qualifiers: Asthma severity: mild Asthma persistence: intermittent Asthma complication type: uncomplicated Qualified Code(s): J45.20 - Mild intermittent asthma, uncomplicated (4) Substance induced mood disorder Current Visit: Yes Status: Suspected (5) Tinea corporis Current Visit: Yes Status: Acute Cleared for Admission S - Detox or Rehab [facility] Level of Care: Medically Managed Detox Regimen/Protocol: Ativan Breathalyzer - Breathalyzer Breathalyzer: 0.258 Urine Drug Screen - Test Device Lot number: [id number] Expiration date: 11/11/21 - Control Is test valid?: Yes - Results Drug screen NEGATIVE: No Urine drug screen results: BZO-Benzodiazepines Inpatient Rehab Admission - Rehab Decision to Admit Inpatient rehab admission?: No
[2020-04-08] MEDS ORDERED: MAG HYDROX/AL HYDROX/SIMETH 30 ML UNIT-DOSE CUP PO PRN (11:57)
[2020-04-08] MEDS ORDERED: MAGNESIUM HYDROX 2400MG/30ML ORAL SUSPENSION 30 ML CUP PO PRN (11:57)
[2020-04-08] MEDS ORDERED: IBUPROFEN 400 MG TABLET (FP) PO PRN (11:57)
[2020-04-08] MEDS ORDERED: BISMUTH SUBSALICYLATE 524 MG/30 ML UD PO PRN (11:57)
[2020-04-08] MEDS ORDERED: MAGNESIUM CITRATE 300 ML BOTTLE PO PRN (11:57)
[2020-04-08] MEDS ORDERED: METHOCARBAMOL 500 MG TABLET PO PRN (11:57)
[2020-04-08] MEDS ORDERED: ONDANSETRON *ODT* 4 MG TABLET SL PRN (11:57)
[2020-04-08] MEDS ORDERED: ACETAMINOPHEN 325 MG TABLET (FP) PO PRN ×2 (11:57)
[2020-04-08] MEDS ORDERED: MENTHOL/PHENOL 1 EACH UD MM PRN (11:57)
[2020-04-08] MEDS ORDERED: LORazepam 1 MG TABLET PO PRN (11:57)
[2020-04-08] MEDS ORDERED: ALBUTEROL SO4 HFA INHALER IH PRN (12:03)
--- NOTE | 2020-04-08 12:18 | CONSULT ---
[facility] Psychiatric Consult - Data Date of interview: 04/08/20 Admission source: Self-referred Identifying data: Mr Whitmore is a 50 years old divorcedcBlack male, father of 2 children, unemployed, domiciled seeking detox treatment for alcohol Substance Abuse History: Reports history of alcohol use. Refer to addiction counselor's summary for further information Medical History: Significant for bronchial asthma, GERD and liver disease, history of treatment for herpes genitalis. Psychiatric History: Patient was approached at bedside for psychiatric interview. He looks very sedated and told writr:" I don't want to see a psychiatrist". Please re consult when patient is more appropriate and change his mind about meeting with the psychiatrist
[2020-04-08] MEDS ORDERED: hydrOXYzine PAMOATE 25 MG CAPSULE (FP) PO SCH (14:00)
[2020-04-08] MEDS: CLOTRIMAZOLE 1% CREAM 15 GM TUBE TP SCH ×2 (14:37→22:45)
[2020-04-08 14:46] LABS: HEMATOCRIT 45.5 % (35.4-49); HEMOGLOBIN 14.7 GM/dL (11.7-16.9); MCH 30.8 pg (25.7-33.7); MCHC 32.4 g/dl (32.0-35.9); MEAN CELL VOLUME 94.9 fl (80-96); MEAN PLT VOLUME 10.9 fl (7.5-11.1); PLATELET COUNT 171 K/MM3 (134-434); RBC 4.79 M/mm3 (4.00-5.60); RDW 12.9 % (11.9-15.9); WHITE BLOOD COUNT 5.2 K/mm3 (4.0-10.0)
[2020-04-08] MEDS ORDERED: hydrOXYzine PAMOATE 25 MG CAPSULE (FP) PO PRN (15:04)
[2020-04-08 15:07] LABS: ALBUMIN 4.2 g/dl (3.4-5.0); BLOOD UREA NITROGEN 10.8 mg/dL (7-18); CALCIUM 8.6 mg/dL (8.5-10.1); POTASSIUM 4.3 mmol/L (3.5-5.1)
[2020-04-08 15:10] LABS: CREATININE 1.1 mg/dL (0.55-1.3); TOT PROT 7.9 g/dl (6.4-8.2)
[2020-04-08 15:34] LABS: BILIRUBIN,TOTAL 0.7 mg/dL (0.2-1)
[2020-04-08] MEDS: LORazepam 2 MG TABLET PO SCH ×2 (18:05→22:45)
[2020-04-08] MEDS: THIAMINE HCL 100 MG TABLET (FP) PO SCH (22:45)
[2020-04-08] MEDS: MELATONIN 5 MG TABLETS PO SCH (22:46)
[2020-04-08] MEDS: BUDESONIDE/FORMETEROL FUMARATE 80/4.5 mcg INHALER IH SCH (22:46)
[2020-04-09] MEDS: LORazepam 2 MG TABLET PO SCH ×3 (06:04→17:45)
[2020-04-09] MEDS: BUDESONIDE/FORMETEROL FUMARATE 80/4.5 mcg INHALER IH SCH (10:59)
[2020-04-09] MEDS: PRENATAL VITAMINS W/ FOLIC ACID TABLET (FP) PO SCH (10:59)
[2020-04-09] MEDS: CLOTRIMAZOLE 1% CREAM 15 GM TUBE TP SCH (11:00)
--- NOTE | 2020-04-09 14:38 | PN ---
S CIWA - CIWA Score Nausea/Vomitin Muscle Tremors: 2 Anxiety: 2 Agitation: 3 Paroxysmal Sweats: 1-Minimal Palms Moist Orientation: 0-Oriented Tacttile Disturbances: 1-Very Mild Itch/Numbness Auditory Disturbances: 0-None Visual Disturbances: 0-None Headache: 2-Mild CIWA-Ar Total Score: 13 BHS Progress Note (SOAP) Subjective: alert,irritable,anxious,interrupted sleep,tremor,aching pain,nausea Objective: 04/09/20 14:37 Vital Signs Temperature 97.3 F L 04/09/20 08:55 Pulse Rate 111 H 04/09/20 08:55 Respiratory Rate 18 04/09/20 08:55 Blood Pressure 133/87 04/09/20 08:55 O2 Sat by Pulse Oximetry (%) 97 04/09/20 08:55 Laboratory Last Values WBC 5.2 K/mm3 (4.0-10.0) 04/08/20 12:00 RBC 4.79 M/mm3 (4.00-5.60) 04/08/20 12:00 Hgb 14.7 GM/dL (11.7-16.9) 04/08/20 12:00 Hct 45.5 % (35.4-49) 04/08/20 12:00 MCV 94.9 fl (80-96) 04/08/20 12:00 MCH 30.8 pg (25.7-33.7) 04/08/20 12:00 MCHC 32.4 g/dl (32.0-35.9) 04/08/20 12:00 RDW 12.9 % (11.9-15.9) D 04/08/20 12:00 Plt Count 171 K/MM3 (134-434) D 04/08/20 12:00 MPV 10.9 fl (7.5-11.1) 04/08/20 12:00 Sodium 141 mmol/L (136-145) 04/08/20 12:00 Potassium 4.3 mmol/L (3.5-5.1) 04/08/20 12:00 Chloride 107 mmol/L (98-107) 04/08/20 12:00 Carbon Dioxide 26 mmol/L (21-32) 04/08/20 12:00 Anion Gap 8 MMOL/L (8-16) 04/08/20 12:00 BUN 10.8 mg/dL (7-18) 04/08/20 12:00 Creatinine 1.1 mg/dL (0.55-1.3) 04/08/20 12:00 Est GFR (CKD-EPI)AfAm 91.52 04/08/20 12:00 Est GFR (CKD-EPI)NonAf 78.96 04/08/20 12:00 Random Glucose 87 mg/dL (74-106) 04/08/20 12:00 Calcium 8.6 mg/dL (8.5-10.1) 04/08/20 12:00 Total Bilirubin 0.7 mg/dL (0.2-1) 04/08/20 12:00 AST 74 U/L (15-37) H 04/08/20 12:00 ALT 122 U/L (13-61) H 04/08/20 12:00 Alkaline Phosphatase 57 U/L (45-117) 04/08/20 12:00 Total Protein 7.9 g/dl (6.4-8.2) 04/08/20 12:00 Albumin 4.2 g/dl (3.4-5.0) 04/08/20 12:00 Syphilis Serology Non-reactive (NONREACTIVE) 04/08/20 12:00 COVID-19 (JONY) Not detected (Not Detected) 04/08/20 13:20 Assessment: 04/09/20 14:38 withdrawal symptom Plan: continue detox ativan regimen
[2020-04-10] MEDS: MELATONIN 5 MG TABLETS PO SCH (00:18)
[2020-04-10] MEDS: THIAMINE HCL 100 MG TABLET (FP) PO SCH (00:18)
[2020-04-10] MEDS: BUDESONIDE/FORMETEROL FUMARATE 80/4.5 mcg INHALER IH SCH ×2 (00:18→10:22)
[2020-04-10] MEDS: CLOTRIMAZOLE 1% CREAM 15 GM TUBE TP SCH ×2 (00:18→10:23)
[2020-04-10] MEDS: LORazepam 2 MG TABLET PO SCH (00:19)
[2020-04-10] MEDS: LORazepam 1 MG TABLET PO SCH ×2 (05:49→10:22)
[2020-04-10 09:26] VITALS: BP 136/76; PULSE 88; TEMP 98.1
[2020-04-10] MEDS: PRENATAL VITAMINS W/ FOLIC ACID TABLET (FP) PO SCH (10:22)
--- NOTE | 2020-04-10 11:30 | PN ---
S CIWA - CIWA Score Nausea/Vomitin-No Nausea/No Vomiting Muscle Tremors: 2 Anxiety: 2 Agitation: 2 Paroxysmal Sweats: 3 Orientation: 0-Oriented Tacttile Disturbances: 0-None Auditory Disturbances: 0-None Visual Disturbances: 0-None Headache: 0-None Present CIWA-Ar Total Score: 9 S Progress Note (SOAP) Subjective: Complaints of sweats, tremors, anxiety and agitation. Objective: 04/10/20 11:29 Vital Signs 04/10/20 04/10/20 05:39 08:50 Temperature 98.2 F 98.1 F Pulse Rate 84 88 Respiratory 16 17 Rate Blood Pressure 125/86 136/76 O2 Sat by Pulse 96 96 Oximetry (%) Laboratory Last Values WBC 5.2 K/mm3 (4.0-10.0) 04/08/20 12:00 RBC 4.79 M/mm3 (4.00-5.60) 04/08/20 12:00 Hgb 14.7 GM/dL (11.7-16.9) 04/08/20 12:00 Hct 45.5 % (35.4-49) 04/08/20 12:00 MCV 94.9 fl (80-96) 04/08/20 12:00 MCH 30.8 pg (25.7-33.7) 04/08/20 12:00 MCHC 32.4 g/dl (32.0-35.9) 04/08/20 12:00 RDW 12.9 % (11.9-15.9) D 04/08/20 12:00 Plt Count 171 K/MM3 (134-434) D 04/08/20 12:00 MPV 10.9 fl (7.5-11.1) 04/08/20 12:00 Sodium 141 mmol/L (136-145) 04/08/20 12:00 Potassium 4.3 mmol/L (3.5-5.1) 04/08/20 12:00 Chloride 107 mmol/L (98-107) 04/08/20 12:00 Carbon Dioxide 26 mmol/L (21-32) 04/08/20 12:00 Anion Gap 8 MMOL/L (8-16) 04/08/20 12:00 BUN 10.8 mg/dL (7-18) 04/08/20 12:00 Creatinine 1.1 mg/dL (0.55-1.3) 04/08/20 12:00 Est GFR (CKD-EPI)AfAm 91.52 04/08/20 12:00 Est GFR (CKD-EPI)NonAf 78.96 04/08/20 12:00 Random Glucose 87 mg/dL (74-106) 04/08/20 12:00 Calcium 8.6 mg/dL (8.5-10.1) 04/08/20 12:00 Total Bilirubin 0.7 mg/dL (0.2-1) 04/08/20 12:00 AST 74 U/L (15-37) H 04/08/20 12:00 ALT 122 U/L (13-61) H 04/08/20 12:00 Alkaline Phosphatase 57 U/L (45-117) 04/08/20 12:00 Total Protein 7.9 g/dl (6.4-8.2) 04/08/20 12:00 Albumin 4.2 g/dl (3.4-5.0) 04/08/20 12:00 Syphilis Serology Non-reactive (NONREACTIVE) 04/08/20 12:00 COVID-19 (JONY) Not detected (Not Detected) 04/08/20 13:20 Labs noted. Assessment: 04/10/20 11:29 Alert and oriented x 3, in no acute respiratory distress. Full ROM, ambulating in unit without assistance. Skin warm to touch without any lesions. Withdrawal symptoms. Plan: Continue detox protocol.
--- NOTE | 2020-04-10 14:43 | DS ---
[facility] Detox Discharge Summary Admission Date: 04/08/20 Discharge Date: 04/10/20 - History Present History: Alcohol Dependence Additional Comments: Alert and oriented x 3, in no acute respiratory distress. Full ROM, ambulatory on unit without assistance. Skin warm to touch, no lesions noted. Wants to leave AMA, encouraged to stay but refused. Pertinent Past History: History of asthma, fatty liver, herniated disc,GERD, and alcohol use disorder. - Physical Exam Results Vital Signs: Vital Signs Temperature 98.1 F 04/10/20 08:50 Pulse Rate 88 04/10/20 08:50 Respiratory Rate 17 04/10/20 08:50 Blood Pressure 136/76 04/10/20 08:50 O2 Sat by Pulse Oximetry (%) 96 04/10/20 08:50 Vital Signs 04/10/20 08:50 Temperature 98.1 F Pulse Rate 88 Respiratory 17 Rate Blood Pressure 136/76 O2 Sat by Pulse 96 Oximetry (%) Laboratory Last Values WBC 5.2 K/mm3 (4.0-10.0) 04/08/20 12:00 RBC 4.79 M/mm3 (4.00-5.60) 04/08/20 12:00 Hgb 14.7 GM/dL (11.7-16.9) 04/08/20 12:00 Hct 45.5 % (35.4-49) 04/08/20 12:00 MCV 94.9 fl (80-96) 04/08/20 12:00 MCH 30.8 pg (25.7-33.7) 04/08/20 12:00 MCHC 32.4 g/dl (32.0-35.9) 04/08/20 12:00 RDW 12.9 % (11.9-15.9) D 04/08/20 12:00 Plt Count 171 K/MM3 (134-434) D 04/08/20 12:00 MPV 10.9 fl (7.5-11.1) 04/08/20 12:00 Sodium 141 mmol/L (136-145) 04/08/20 12:00 Potassium 4.3 mmol/L (3.5-5.1) 04/08/20 12:00 Chloride 107 mmol/L (98-107) 04/08/20 12:00 Carbon Dioxide 26 mmol/L (21-32) 04/08/20 12:00 Anion Gap 8 MMOL/L (8-16) 04/08/20 12:00 BUN 10.8 mg/dL (7-18) 04/08/20 12:00 Creatinine 1.1 mg/dL (0.55-1.3) 04/08/20 12:00 Est GFR (CKD-EPI)AfAm 91.52 04/08/20 12:00 Est GFR (CKD-EPI)NonAf 78.96 04/08/20 12:00 Random Glucose 87 mg/dL (74-106) 04/08/20 12:00 Calcium 8.6 mg/dL (8.5-10.1) 04/08/20 12:00 Total Bilirubin 0.7 mg/dL (0.2-1) 04/08/20 12:00 AST 74 U/L (15-37) H 04/08/20 12:00 ALT 122 U/L (13-61) H 04/08/20 12:00 Alkaline Phosphatase 57 U/L (45-117) 04/08/20 12:00 Total Protein 7.9 g/dl (6.4-8.2) 04/08/20 12:00 Albumin 4.2 g/dl (3.4-5.0) 04/08/20 12:00 Syphilis Serology Non-reactive (NONREACTIVE) 04/08/20 12:00 COVID-19 (JONY) Not detected (Not Detected) 04/08/20 13:20 Labs noted. Pertinent Admission Physical Exam Findings: Withdrawal symptoms - Medication Discharge Medications: Ambulatory Orders Albuterol Sulfate Inhaler - [Ventolin HFA Inhaler -] 2 puff IH Q4H PRN #1 inhaler 01/22/18 Budesonide/Formeterol Fumarate [SYMBICORT 80/4.5mcg -] 1 puff PO BID 08/28/19 traZODone HCL [Desyrel -] 200 mg PO HS #90 tablet 08/28/19 - Diagnosis (1) Alcohol dependence with uncomplicated withdrawal Current Visit: Yes Status: Acute (2) Asthma Current Visit: Yes Status: Chronic Qualifiers: Asthma severity: mild Asthma persistence: intermittent Asthma complication type: uncomplicated Qualified Code(s): J45.20 - Mild intermittent asthma, uncomplicated (3) GERD (gastroesophageal reflux disease) Current Visit: No Status: Chronic Qualifiers: Esophagitis presence: without esophagitis Qualified Code(s): K21.9 - Gastro-esophageal reflux disease without esophagitis - AMA Did Patient Leave Against Medical Advice: Yes
[2020-04-11] MEDS ORDERED: LORazepam 0.5 MG TABLET PO PRN
[2020-04-11] MEDS ORDERED: LORazepam 0.5 MG TABLET PO SCH (05:00)
[2020-04-12] MEDS ORDERED: LORazepam 0.5 MG TABLET PO ONE (05:00)
== END 2020-04-10 14:20 | disposition left against medical advice (07) | DRG 770 ==
LOC: YASAS 09:39 → Y6N 11:35
PROVIDERS: ADMIT Allergy & Immunology; ATTEND Allergy & Immunology
PROC: HZ2ZZZZ Detoxification Services for Substance Abuse Treatment (ICD-10-PCS; principal; 2020-04-08)
DX: F10.230 Alcohol dependence with withdrawal, uncomplicated (principal); F17.211 Nicotine dependence, cigarettes, in remission; F19.24 Other psychoactive substance dependence with psychoactive substance-induced mood disorder; F41.9 Anxiety disorder, unspecified; F32.9 Major depressive disorder, single episode, unspecified; J45.20 Mild intermittent asthma, uncomplicated; K21.9 Gastro-esophageal reflux disease without esophagitis; K76.0 Fatty (change of) liver, not elsewhere classified; M51.26 Other intervertebral disc displacement, lumbar region; B35.4 Tinea corporis; R74.0 Nonspecific elevation of levels of transaminase and lactic acid dehydrogenase [LDH]; Z87.438 Personal history of other diseases of male genital organs; Z91.013 Allergy to seafood; Z91.5 Personal history of self-harm
CPT/HCPCS: 36415; 80053; 85027; 86780; Q0162; U0003

== ENCOUNTER 2021-05-06 13:34 | Inpatient (IN) | payer OTHER ==
[2021-05-06 15:57] VITALS: BMI 28.4
[2021-05-06] MEDS ORDERED: MAG HYDROX/AL HYDROX/SIMETH 30 ML UNIT-DOSE CUP PO PRN (16:29)
[2021-05-06] MEDS ORDERED: MAGNESIUM CITRATE 300 ML BOTTLE PO PRN (16:29)
[2021-05-06] MEDS ORDERED: MENTHOL/PHENOL 1 EACH UD MM PRN (16:29)
[2021-05-06] MEDS ORDERED: IBUPROFEN 400 MG TABLET (FP) PO PRN (16:29)
[2021-05-06] MEDS ORDERED: ONDANSETRON *ODT* 4 MG TABLET SL PRN (16:29)
[2021-05-06] MEDS ORDERED: BISMUTH SUBSALICYLATE 524 MG/30 ML PO PRN (16:29)
[2021-05-06] MEDS ORDERED: ACETAMINOPHEN 325 MG TABLET (FP) PO PRN ×2 (16:29)
[2021-05-06] MEDS ORDERED: MAGNESIUM HYDROX 2400MG/30ML ORAL SUSPENSION 30 ML CUP PO PRN (16:29)
[2021-05-06] MEDS ORDERED: ALBUTEROL SO4 HFA INHALER IH PRN (16:33)
[2021-05-06] MEDS: diazePAM 5 MG TABLET PO PRN (19:24)
[2021-05-06] MEDS: hydrOXYzine PAMOATE 25 MG CAPSULE (FP) PO SCH ×2 (19:25→22:45)
[2021-05-06] MEDS: THIAMINE HCL 100 MG TABLET (FP) PO SCH (22:45)
[2021-05-06] MEDS: MELATONIN 5 MG TABLETS PO SCH (22:46)
[2021-05-06] MEDS: diazePAM 5 MG TABLET PO SCH (22:46)
[2021-05-07] MEDS: hydrOXYzine PAMOATE 25 MG CAPSULE (FP) PO SCH ×5 (06:07→22:21)
[2021-05-07] MEDS: diazePAM 5 MG TABLET PO SCH ×4 (06:08→22:21)
[2021-05-07] MEDS: METHOCARBAMOL 500 MG TABLET PO PRN ×2 (13:59→22:23)
[2021-05-07 14:29] LABS: HEMATOCRIT 50.1 % (35.4-49); HEMOGLOBIN 16.3 GM/dL (11.7-16.9); MCH 30.3 pg (25.7-33.7); MCHC 32.6 g/dl (32.0-35.9); MEAN CELL VOLUME 92.8 fl (80-96); MEAN PLT VOLUME 10.2 fl (7.5-11.1); PLATELET COUNT 192 10^3/uL (134-434); RBC 5.39 M/mm3 (4.00-5.60); WHITE BLOOD COUNT 5.6 K/mm3 (4.0-10.0)
[2021-05-07] MEDS: THIAMINE HCL 100 MG TABLET (FP) PO SCH (22:21)
[2021-05-07] MEDS: traZODone HCL 100 MG TABLET (FP) PO SCH (22:21)
[2021-05-07] MEDS: MELATONIN 5 MG TABLETS PO SCH (22:21)
[2021-05-07 22:53] LABS: BLOOD UREA NITROGEN 9.6 mg/dL (7-18); CALCIUM 8.8 mg/dL (8.5-10.1); CREATININE 0.9 mg/dL (0.55-1.3)
[2021-05-07 22:54] LABS: ALBUMIN 4.2 g/dl (3.4-5.0)
[2021-05-08] MEDS: diazePAM 5 MG TABLET PO SCH ×3 (06:14→22:19)
[2021-05-08] MEDS: hydrOXYzine PAMOATE 25 MG CAPSULE (FP) PO SCH ×5 (06:14→22:19)
[2021-05-08] MEDS: diazePAM 5 MG TABLET PO PRN (10:52)
[2021-05-08] MEDS: METHOCARBAMOL 500 MG TABLET PO PRN (10:53)
[2021-05-08] MEDS: THIAMINE HCL 100 MG TABLET (FP) PO SCH (22:19)
[2021-05-08] MEDS: traZODone HCL 100 MG TABLET (FP) PO SCH (22:19)
[2021-05-08] MEDS: MELATONIN 5 MG TABLETS PO SCH (22:19)
[2021-05-09] MEDS: diazePAM 5 MG TABLET PO SCH ×2 (05:51→17:58)
[2021-05-09] MEDS: hydrOXYzine PAMOATE 25 MG CAPSULE (FP) PO SCH (05:51)
[2021-05-09] MEDS: traZODone HCL 100 MG TABLET (FP) PO SCH (22:12)
[2021-05-09] MEDS: THIAMINE HCL 100 MG TABLET (FP) PO SCH (22:12)
[2021-05-09] MEDS: MELATONIN 5 MG TABLETS PO SCH (22:12)
[2021-05-10] MEDS ORDERED: diazePAM 5 MG TABLET PO ONE (06:00)
[2021-05-10 06:42] VITALS: BP 101/68; PULSE 72; TEMP 96.4
== END 2021-05-10 09:15 | disposition home or self-care (01) | DRG 774 ==
LOC: YASAS 13:34 → Y6N 16:37
PROVIDERS: ADMIT Allergy & Immunology; ATTEND Allergy & Immunology
PROC: HZ2ZZZZ Detoxification Services for Substance Abuse Treatment (ICD-10-PCS; principal; 2021-05-06)
DX: F10.230 Alcohol dependence with withdrawal, uncomplicated (principal); F14.20 Cocaine dependence, uncomplicated; F19.24 Other psychoactive substance dependence with psychoactive substance-induced mood disorder; F51.05 Insomnia due to other mental disorder; F41.9 Anxiety disorder, unspecified; F32.9 Major depressive disorder, single episode, unspecified; J45.20 Mild intermittent asthma, uncomplicated; J44.9 Chronic obstructive pulmonary disease, unspecified; Z87.438 Personal history of other diseases of male genital organs; Z87.891 Personal history of nicotine dependence
CPT/HCPCS: 36415; 80053; 85027; 86780; C9803; U0003; U0005

== ENCOUNTER 2021-07-27 15:22 | Inpatient (IN) | payer OTHER ==
[2021-07-27] MEDS ORDERED: MAG HYDROX/AL HYDROX/SIMETH 30 ML UNIT-DOSE CUP PO PRN (17:58)
[2021-07-27] MEDS ORDERED: BISMUTH SUBSALICYLATE 524 MG/30 ML PO PRN (17:58)
[2021-07-27] MEDS ORDERED: ONDANSETRON *ODT* 4 MG TABLET SL PRN (17:58)
[2021-07-27] MEDS ORDERED: MAGNESIUM HYDROX 2400MG/30ML ORAL SUSPENSION 30 ML CUP PO PRN (17:58)
[2021-07-27] MEDS ORDERED: METHOCARBAMOL 500 MG TABLET PO PRN (17:58)
[2021-07-27] MEDS ORDERED: MENTHOL/PHENOL 1 EACH UD MM PRN (17:58)
[2021-07-27] MEDS ORDERED: IBUPROFEN 400 MG TABLET (FP) PO PRN (17:58)
[2021-07-27] MEDS ORDERED: MAGNESIUM CITRATE 300 ML BOTTLE PO PRN (17:58)
[2021-07-27] MEDS ORDERED: ACETAMINOPHEN 325 MG TABLET (FP) PO PRN ×2 (17:58)
[2021-07-27 19:36] VITALS: BMI 29.0
[2021-07-27] MEDS: MELATONIN 5 MG TABLETS PO SCH (22:17)
[2021-07-27] MEDS: hydrOXYzine PAMOATE 25 MG CAPSULE (FP) PO PRN (22:18)
[2021-07-27] MEDS: THIAMINE HCL 100 MG TABLET (FP) PO SCH (22:18)
[2021-07-28] MEDS ORDERED: chlordiazePOXIDE HCL 25 MG CAPSULE PO PRN (09:47)
[2021-07-28 09:53] LABS: HEMATOCRIT 47.5 % (35.4-49); HEMOGLOBIN 15.6 GM/dL (11.7-16.9); MCH 30.2 pg (25.7-33.7); MCHC 32.8 g/dl (32.0-35.9); MEAN CELL VOLUME 92.2 fl (80-96); PLATELET COUNT 116 10^3/uL (134-434); RBC 5.15 M/mm3 (4.00-5.60); RDW 13.9 % (11.9-15.9); WHITE BLOOD COUNT 6.1 K/mm3 (4.0-10.0)
[2021-07-28 10:19] LABS: ALBUMIN 3.6 g/dl (3.4-5.0); BLOOD UREA NITROGEN 11.6 mg/dL (7-18); CALCIUM 8.9 mg/dL (8.5-10.1)
[2021-07-28 10:24] LABS: BILIRUBIN,TOTAL 1.9 mg/dL (0.2-1); TOT PROT 7.2 g/dl (6.4-8.2)
[2021-07-28] MEDS: PRENATAL VITAMINS W/ FOLIC ACID TABLET (FP) PO SCH (10:25)
[2021-07-28] MEDS: chlordiazePOXIDE HCL 25 MG CAPSULE PO SCH ×3 (10:25→22:04)
[2021-07-28] MEDS: hydrOXYzine PAMOATE 25 MG CAPSULE (FP) PO PRN (13:41)
[2021-07-28] MEDS: MELATONIN 5 MG TABLETS PO SCH (22:04)
[2021-07-28] MEDS: traZODone HCL 50 MG TABLET (FP) PO SCH (22:04)
[2021-07-28] MEDS: THIAMINE HCL 100 MG TABLET (FP) PO SCH (22:04)
[2021-07-29] MEDS: chlordiazePOXIDE HCL 25 MG CAPSULE PO SCH ×4 (05:21→22:06)
[2021-07-29] MEDS: PRENATAL VITAMINS W/ FOLIC ACID TABLET (FP) PO SCH (10:22)
[2021-07-29] MEDS: hydrOXYzine PAMOATE 25 MG CAPSULE (FP) PO PRN (18:17)
[2021-07-29] MEDS: traZODone HCL 50 MG TABLET (FP) PO SCH (22:05)
[2021-07-29] MEDS: THIAMINE HCL 100 MG TABLET (FP) PO SCH (22:06)
[2021-07-29] MEDS: MELATONIN 5 MG TABLETS PO SCH (22:06)
[2021-07-29] MEDS: ALBUTEROL SO4 HFA INHALER IH PRN (22:10)
[2021-07-30] MEDS: chlordiazePOXIDE HCL 25 MG CAPSULE PO SCH ×4 (05:59→22:52)
[2021-07-30] MEDS: PRENATAL VITAMINS W/ FOLIC ACID TABLET (FP) PO SCH (10:15)
[2021-07-30] MEDS: THIAMINE HCL 100 MG TABLET (FP) PO SCH (22:52)
[2021-07-30] MEDS: traZODone HCL 50 MG TABLET (FP) PO SCH (22:52)
[2021-07-30] MEDS: MELATONIN 5 MG TABLETS PO SCH (22:54)
[2021-07-31] MEDS ORDERED: chlordiazePOXIDE HCL 10 MG CAPSULE PO PRN
[2021-07-31] MEDS: chlordiazePOXIDE HCL 10 MG CAPSULE PO SCH ×2 (05:32→11:38)
[2021-07-31] MEDS ORDERED: ALBUTEROL SO4 HFA INHALER IH ONE (08:53)
[2021-07-31] MEDS: ALBUTEROL SO4 HFA INHALER IH PRN (08:53)
[2021-07-31 10:48] VITALS: BP 110/65; PULSE 97; TEMP 97.3
[2021-07-31] MEDS: PRENATAL VITAMINS W/ FOLIC ACID TABLET (FP) PO SCH (11:38)
[2021-08-01] MEDS ORDERED: chlordiazePOXIDE HCL 10 MG CAPSULE PO SCH (05:00)
[2021-08-02] MEDS ORDERED: chlordiazePOXIDE HCL 10 MG CAPSULE PO ONE (05:00)
== END 2021-07-31 10:10 | disposition left against medical advice (07) | DRG 770 ==
LOC: YASAS 15:22 → Y3N 19:09 → Y6N 07-30 13:14
PROVIDERS: ADMIT Allergy & Immunology; ATTEND Allergy & Immunology
PROC: HZ2ZZZZ Detoxification Services for Substance Abuse Treatment (ICD-10-PCS; principal; 2021-07-27)
DX: F10.230 Alcohol dependence with withdrawal, uncomplicated (principal); F10.24 Alcohol dependence with alcohol-induced mood disorder; F10.282 Alcohol dependence with alcohol-induced sleep disorder; F14.20 Cocaine dependence, uncomplicated; F17.210 Nicotine dependence, cigarettes, uncomplicated; F32.A Depression, unspecified; J45.20 Mild intermittent asthma, uncomplicated; Z91.011 Allergy to milk products; Z91.51 Personal history of suicidal behavior
CPT/HCPCS: 36415; 80053; 82247; 84450; 85027; 86780; C9803; U0003; U0005

== ENCOUNTER 2021-08-31 17:44 | Inpatient (IN) | payer OTHER ==
[2021-08-31 19:11] VITALS: BMI 28.4
[2021-08-31] MEDS ORDERED: P-EPHED 60MG/TRIPROLIDI 2.5MG TABLET PO PRN (19:57)
[2021-08-31] MEDS ORDERED: IBUPROFEN 400 MG TABLET (FP) PO PRN (19:57)
[2021-08-31] MEDS ORDERED: ONDANSETRON *ODT* 4 MG TABLET SL PRN (19:57)
[2021-08-31] MEDS ORDERED: ACETAMINOPHEN 325 MG TABLET (FP) PO PRN ×2 (19:57)
[2021-08-31] MEDS ORDERED: MAGNESIUM HYDROX 2400MG/30ML ORAL SUSPENSION 30 ML CUP PO PRN (19:57)
[2021-08-31] MEDS ORDERED: MENTHOL/PHENOL 1 EACH UD MM PRN (19:57)
[2021-08-31] MEDS ORDERED: MAGNESIUM CITRATE 300 ML BOTTLE PO PRN (19:57)
[2021-08-31] MEDS ORDERED: chlordiazePOXIDE HCL 25 MG CAPSULE PO PRN (19:57)
[2021-08-31] MEDS ORDERED: MAG HYDROX/AL HYDROX/SIMETH 30 ML UNIT-DOSE CUP PO PRN (19:57)
[2021-08-31] MEDS ORDERED: guaiFENesin 200 MG/10 ML 10 ML UNIT-DOSE CUPS PO PRN (19:57)
[2021-08-31] MEDS ORDERED: BISMUTH SUBSALICYLATE 524 MG/30 ML PO PRN (19:57)
[2021-08-31] MEDS ORDERED: DICYCLOMINE HCL 10 MG CAPSULE PO PRN (19:57)
[2021-09-01] MEDS: THIAMINE HCL 100 MG TABLET (FP) PO SCH ×2 (00:41→22:50)
[2021-09-01] MEDS: MELATONIN 5 MG TABLETS PO SCH ×2 (00:41→22:51)
[2021-09-01] MEDS: chlordiazePOXIDE HCL 25 MG CAPSULE PO SCH ×5 (00:42→22:50)
[2021-09-01] MEDS: PRENATAL VITAMINS W/ FOLIC ACID TABLET (FP) PO SCH (10:08)
[2021-09-01] MEDS: METHOCARBAMOL 500 MG TABLET PO PRN (10:09)
[2021-09-01 10:33] LABS: HEMATOCRIT 44.9 % (35.4-49); HEMOGLOBIN 14.4 GM/dL (11.7-16.9); MCH 29.8 pg (25.7-33.7); MEAN CELL VOLUME 92.9 fl (80-96); MEAN PLT VOLUME 10.1 fl (7.5-11.1); PLATELET COUNT 260 10^3/uL (134-434); RBC 4.83 M/mm3 (4.00-5.60); RDW 14.2 % (11.9-15.9); WHITE BLOOD COUNT 6.4 K/mm3 (4.0-10.0)
[2021-09-01 10:43] LABS: CALCIUM 9.3 mg/dL (8.5-10.1)
[2021-09-01 10:44] LABS: BLOOD UREA NITROGEN 10.7 mg/dL (7-18)
[2021-09-01 10:47] LABS: CREATININE 1.1 mg/dL (0.55-1.3)
[2021-09-01 10:48] LABS: TOT PROT 7.4 g/dl (6.4-8.2)
[2021-09-01 10:49] LABS: BILIRUBIN,TOTAL 0.6 mg/dL (0.2-1)
[2021-09-01] MEDS: traZODone HCL 50 MG TABLET (FP) PO SCH (22:50)
[2021-09-01] MEDS ORDERED: ALBUTEROL SO4 HFA INHALER IH PRN (22:51)
[2021-09-02] MEDS: chlordiazePOXIDE HCL 25 MG CAPSULE PO SCH ×4 (05:51→22:35)
[2021-09-02] MEDS ORDERED: cloNIDine HCL 0.1 MG TABLET PO PRN (08:14)
[2021-09-02] MEDS: PRENATAL VITAMINS W/ FOLIC ACID TABLET (FP) PO SCH (10:08)
[2021-09-02] MEDS: traZODone HCL 50 MG TABLET (FP) PO SCH (22:34)
[2021-09-02] MEDS: THIAMINE HCL 100 MG TABLET (FP) PO SCH (22:35)
[2021-09-02] MEDS: MELATONIN 5 MG TABLETS PO SCH (22:37)
[2021-09-03] MEDS ORDERED: chlordiazePOXIDE HCL 10 MG CAPSULE PO PRN
[2021-09-03] MEDS: chlordiazePOXIDE HCL 10 MG CAPSULE PO SCH ×4 (06:14→23:06)
[2021-09-03] MEDS: METHOCARBAMOL 500 MG TABLET PO PRN (07:57)
[2021-09-03] MEDS: PRENATAL VITAMINS W/ FOLIC ACID TABLET (FP) PO SCH (10:23)
[2021-09-03] MEDS: traZODone HCL 50 MG TABLET (FP) PO SCH (23:05)
[2021-09-03] MEDS: THIAMINE HCL 100 MG TABLET (FP) PO SCH (23:05)
[2021-09-03] MEDS: MELATONIN 5 MG TABLETS PO SCH (23:06)
[2021-09-04] MEDS: chlordiazePOXIDE HCL 10 MG CAPSULE PO SCH ×2 (05:25→18:06)
[2021-09-04] MEDS: PRENATAL VITAMINS W/ FOLIC ACID TABLET (FP) PO SCH (10:19)
[2021-09-04] MEDS: METHOCARBAMOL 500 MG TABLET PO PRN (10:19)
[2021-09-04] MEDS: traZODone HCL 50 MG TABLET (FP) PO SCH (22:31)
[2021-09-04] MEDS: THIAMINE HCL 100 MG TABLET (FP) PO SCH (22:31)
[2021-09-04] MEDS: MELATONIN 5 MG TABLETS PO SCH (22:54)
[2021-09-05] MEDS ORDERED: chlordiazePOXIDE HCL 10 MG CAPSULE PO ONE (05:00)
[2021-09-05 09:42] VITALS: BP 152/97; PULSE 90; TEMP 97.3
[2021-09-05] MEDS ORDERED: MODERNA COVID-19 VACC,MRNA/PF 50 MCG/0.25 ML EACH IM ONE (10:00)
== END 2021-09-05 10:06 | disposition home or self-care (01) | DRG 775 ==
LOC: YASAS 17:44 → Y6N 22:38
PROVIDERS: ADMIT Allergy & Immunology; ATTEND Allergy & Immunology
PROC: HZ2ZZZZ Detoxification Services for Substance Abuse Treatment (ICD-10-PCS; principal; 2021-08-31)
DX: F10.230 Alcohol dependence with withdrawal, uncomplicated (principal); F19.24 Other psychoactive substance dependence with psychoactive substance-induced mood disorder; F10.24 Alcohol dependence with alcohol-induced mood disorder; F10.282 Alcohol dependence with alcohol-induced sleep disorder; J45.20 Mild intermittent asthma, uncomplicated; M54.50 Low back pain, unspecified; G89.29 Other chronic pain; Z91.011 Allergy to milk products
CPT/HCPCS: 0013A; 36415; 80053; 85027; 86780; 91301; C9803; U0003; U0005

== ENCOUNTER 2021-11-09 09:06 | Inpatient (IN) | payer OTHER ==
[2021-11-09] MEDS ORDERED: MAGNESIUM CITRATE 300 ML BOTTLE PO PRN (10:59)
[2021-11-09] MEDS ORDERED: BISMUTH SUBSALICYLATE 524 MG/30 ML PO PRN (10:59)
[2021-11-09] MEDS ORDERED: LOPERAMIDE HCL 2 MG CAPSULE PO PRN (10:59)
[2021-11-09] MEDS ORDERED: ONDANSETRON *ODT* 4 MG TABLET SL PRN (10:59)
[2021-11-09] MEDS ORDERED: IBUPROFEN 400 MG TABLET (FP) PO PRN (10:59)
[2021-11-09] MEDS ORDERED: ACETAMINOPHEN 325 MG TABLET (FP) PO PRN ×2 (10:59)
[2021-11-09] MEDS ORDERED: DICYCLOMINE HCL 10 MG CAPSULE PO PRN (10:59)
[2021-11-09] MEDS ORDERED: MAGNESIUM HYDROX 2400MG/30ML ORAL SUSPENSION 30 ML CUP PO PRN (10:59)
[2021-11-09] MEDS ORDERED: chlordiazePOXIDE HCL 25 MG CAPSULE PO PRN (10:59)
[2021-11-09] MEDS ORDERED: MAG HYDROX/AL HYDROX/SIMETH 30 ML UNIT-DOSE CUP PO PRN (10:59)
[2021-11-09] MEDS ORDERED: MENTHOL/PHENOL 1 EACH UD MM PRN (10:59)
[2021-11-09 11:21] VITALS: BMI 29.0
[2021-11-09] MEDS: chlordiazePOXIDE HCL 25 MG CAPSULE PO SCH ×3 (12:30→22:06)
[2021-11-09] MEDS: PRENATAL VITAMINS W/ FOLIC ACID TABLET (FP) PO SCH (14:37)
[2021-11-09] MEDS: hydrOXYzine PAMOATE 25 MG CAPSULE (FP) PO SCH ×3 (14:37→22:05)
[2021-11-09 15:17] LABS: HEMATOCRIT 45.5 % (35.4-49); HEMOGLOBIN 14.8 GM/dL (11.7-16.9); MCH 29.5 pg (25.7-33.7); MCHC 32.4 g/dl (32.0-35.9); MEAN CELL VOLUME 91.1 fl (80-96); MEAN PLT VOLUME 9.6 fl (7.5-11.1); PLATELET COUNT 174 10^3/uL (134-434); RDW 14.9 % (11.9-15.9); WHITE BLOOD COUNT 4.9 K/mm3 (4.0-10.0)
[2021-11-09 15:24] LABS: BLOOD UREA NITROGEN 10.5 mg/dL (7-18)
[2021-11-09 15:25] LABS: ALBUMIN 4.4 g/dl (3.4-5.0)
[2021-11-09 15:28] LABS: CREATININE 0.9 mg/dL (0.55-1.3)
[2021-11-09 15:29] LABS: BILIRUBIN,TOTAL 0.6 mg/dL (0.2-1); TOT PROT 7.9 g/dl (6.4-8.2)
[2021-11-09] MEDS ORDERED: MELATONIN 5 MG TABLETS PO SCH (22:00)
[2021-11-09] MEDS: traZODone HCL 50 MG TABLET (FP) PO SCH (22:05)
[2021-11-09] MEDS: THIAMINE HCL 100 MG TABLET (FP) PO SCH (22:05)
[2021-11-10] MEDS: hydrOXYzine PAMOATE 25 MG CAPSULE (FP) PO SCH ×5 (05:49→22:35)
[2021-11-10] MEDS: chlordiazePOXIDE HCL 25 MG CAPSULE PO SCH ×4 (05:49→22:34)
[2021-11-10] MEDS: PRENATAL VITAMINS W/ FOLIC ACID TABLET (FP) PO SCH (10:24)
[2021-11-10] MEDS: METHOCARBAMOL 500 MG TABLET PO PRN (10:25)
[2021-11-10] MEDS ORDERED: ALBUTEROL SO4 HFA INHALER IH PRN (11:04)
[2021-11-10] MEDS ORDERED: ALBUTEROL SO4 0.083% IH SOL 2.5 MG/3 ML VIAL.NEB. NEB PRN ×2 (11:05→11:06)
[2021-11-10] MEDS: traZODone HCL 50 MG TABLET (FP) PO SCH (22:33)
[2021-11-10] MEDS: THIAMINE HCL 100 MG TABLET (FP) PO SCH (22:33)
[2021-11-11] MEDS: hydrOXYzine PAMOATE 25 MG CAPSULE (FP) PO SCH ×5 (05:29→22:05)
[2021-11-11] MEDS: chlordiazePOXIDE HCL 25 MG CAPSULE PO SCH ×4 (05:29→22:06)
[2021-11-11] MEDS: PRENATAL VITAMINS W/ FOLIC ACID TABLET (FP) PO SCH (10:16)
[2021-11-11] MEDS: traZODone HCL 50 MG TABLET (FP) PO SCH (22:05)
[2021-11-11] MEDS: THIAMINE HCL 100 MG TABLET (FP) PO SCH (22:05)
[2021-11-12] MEDS ORDERED: chlordiazePOXIDE HCL 10 MG CAPSULE PO PRN
[2021-11-12] MEDS: hydrOXYzine PAMOATE 25 MG CAPSULE (FP) PO SCH ×5 (05:51→22:14)
[2021-11-12] MEDS: chlordiazePOXIDE HCL 10 MG CAPSULE PO SCH ×4 (05:51→22:11)
[2021-11-12 06:09] LABS: SARS-CoV-2 NAA Not Detected (Not Detected)
[2021-11-12] MEDS: PRENATAL VITAMINS W/ FOLIC ACID TABLET (FP) PO SCH (10:26)
[2021-11-12] MEDS: traZODone HCL 50 MG TABLET (FP) PO SCH (22:11)
[2021-11-12] MEDS: THIAMINE HCL 100 MG TABLET (FP) PO SCH (22:11)
[2021-11-13] MEDS: chlordiazePOXIDE HCL 10 MG CAPSULE PO SCH ×2 (06:46→06:54)
[2021-11-13] MEDS: hydrOXYzine PAMOATE 25 MG CAPSULE (FP) PO SCH ×3 (06:46→09:55)
[2021-11-13 09:48] VITALS: BP 120/72; PULSE 100; TEMP 97.3
[2021-11-13] MEDS: METHOCARBAMOL 500 MG TABLET PO PRN (09:55)
[2021-11-13] MEDS: PRENATAL VITAMINS W/ FOLIC ACID TABLET (FP) PO SCH (09:55)
[2021-11-14] MEDS ORDERED: chlordiazePOXIDE HCL 10 MG CAPSULE PO ONE (05:00)
== END 2021-11-13 11:16 | disposition home or self-care (01) | DRG 775 ==
LOC: YASAS 09:06 → Y6N 12:02
PROVIDERS: ADMIT Allergy & Immunology; ATTEND Allergy & Immunology
PROC: HZ2ZZZZ Detoxification Services for Substance Abuse Treatment (ICD-10-PCS; principal; 2021-11-09)
DX: F10.230 Alcohol dependence with withdrawal, uncomplicated (principal); F13.230 Sedative, hypnotic or anxiolytic dependence with withdrawal, uncomplicated; F10.282 Alcohol dependence with alcohol-induced sleep disorder; F10.24 Alcohol dependence with alcohol-induced mood disorder; F34.1 Dysthymic disorder; F32.9 Major depressive disorder, single episode, unspecified; J45.20 Mild intermittent asthma, uncomplicated; R74.01 Elevation of levels of liver transaminase levels
CPT/HCPCS: 36415; 80053; 85027; 86780; 87811; C9803-CS; U0003; U0005

== ENCOUNTER 2022-02-28 15:55 | Inpatient (IN) | payer OTHER ==
[2022-02-28 18:43] VITALS: BMI 28.2
[2022-02-28] MEDS ORDERED: ALBUTEROL SO4 HFA INHALER IH PRN (20:04)
[2022-02-28] MEDS ORDERED: BISMUTH SUBSALICYLATE 524 MG/30 ML PO PRN (20:18)
[2022-02-28] MEDS ORDERED: DICYCLOMINE HCL 10 MG CAPSULE PO PRN (20:18)
[2022-02-28] MEDS ORDERED: MAGNESIUM HYDROX 2400MG/30ML ORAL SUSPENSION 30 ML CUP PO PRN (20:18)
[2022-02-28] MEDS ORDERED: LOPERAMIDE HCL 2 MG CAPSULE PO PRN (20:18)
[2022-02-28] MEDS ORDERED: ACETAMINOPHEN 325 MG TABLET (FP) PO PRN ×2 (20:18)
[2022-02-28] MEDS ORDERED: METHOCARBAMOL 500 MG TABLET PO PRN (20:18)
[2022-02-28] MEDS ORDERED: ONDANSETRON *ODT* 4 MG TABLET SL PRN (20:18)
[2022-02-28] MEDS ORDERED: MAGNESIUM CITRATE 300 ML BOTTLE PO PRN (20:18)
[2022-02-28] MEDS ORDERED: MAG HYDROX/AL HYDROX/SIMETH 30 ML UNIT-DOSE CUP PO PRN (20:18)
[2022-02-28] MEDS ORDERED: IBUPROFEN 600 MG TABLET (FP) PO PRN (20:18)
[2022-02-28] MEDS ORDERED: IBUPROFEN 400 MG TABLET (FP) PO PRN (20:18)
[2022-02-28] MEDS ORDERED: P-EPHED 60MG/TRIPROLIDI 2.5MG TABLET PO PRN (20:18)
[2022-02-28] MEDS ORDERED: guaiFENesin 200 MG/10 ML 10 ML UNIT-DOSE CUPS PO PRN (20:18)
[2022-02-28] MEDS ORDERED: BENZOCAINE/MENTHOL (CHLORASEPTIC ) LOZENGE MM PRN (20:18)
[2022-02-28] MEDS ORDERED: hydrOXYzine PAMOATE 25 MG CAPSULE (FP) PO PRN (20:18)
[2022-02-28] MEDS ORDERED: chlordiazePOXIDE HCL 25 MG CAPSULE PO PRN (20:21)
[2022-02-28] MEDS ORDERED: traZODone HCL 50 MG TABLET (FP) PO ONE (22:00)
[2022-02-28] MEDS: THIAMINE HCL 100 MG TABLET (FP) PO SCH (22:20)
[2022-02-28] MEDS: MELATONIN 5 MG TABLETS PO PRN (22:20)
[2022-02-28] MEDS: chlordiazePOXIDE HCL 25 MG CAPSULE PO SCH (22:21)
[2022-03-01] MEDS: chlordiazePOXIDE HCL 25 MG CAPSULE PO SCH ×4 (05:43→22:21)
[2022-03-01] MEDS: PRENATAL VITAMINS W/ FOLIC ACID TABLET (FP) PO SCH (09:30)
[2022-03-01 11:11] LABS: HEMATOCRIT 46.9 % (35.4-49); HEMOGLOBIN 15.2 GM/dL (11.7-16.9); MCHC 32.5 g/dl (32.0-35.9); MEAN CELL VOLUME 92.3 fl (80-96); MEAN PLT VOLUME 11.1 fl (7.5-11.1); PLATELET COUNT 165 10^3/uL (134-434); RBC 5.08 M/mm3 (4.00-5.60); RDW 14.3 % (11.9-15.9)
[2022-03-01 11:18] LABS: BLOOD UREA NITROGEN 10.2 mg/dL (7-18); CALCIUM 9.3 mg/dL (8.5-10.1)
[2022-03-01 11:19] LABS: ALBUMIN 3.8 g/dl (3.4-5.0)
[2022-03-01 11:23] LABS: BILIRUBIN,TOTAL 1.3 mg/dL (0.2-1); TOT PROT 7.3 g/dl (6.4-8.2)
[2022-03-01] MEDS ORDERED: traZODone HCL 100 MG TABLET (FP) PO SCH (22:00)
[2022-03-01] MEDS: MELATONIN 5 MG TABLETS PO PRN (22:21)
[2022-03-01] MEDS: THIAMINE HCL 100 MG TABLET (FP) PO SCH (22:21)
[2022-03-02] MEDS: chlordiazePOXIDE HCL 25 MG CAPSULE PO SCH ×2 (06:31→11:06)
[2022-03-02 09:10] VITALS: BP 119/83; PULSE 97; RESP 16; TEMP 97.5
[2022-03-02] MEDS: PRENATAL VITAMINS W/ FOLIC ACID TABLET (FP) PO SCH (10:55)
[2022-03-03] MEDS ORDERED: chlordiazePOXIDE HCL 10 MG CAPSULE PO PRN
[2022-03-03] MEDS ORDERED: chlordiazePOXIDE HCL 10 MG CAPSULE PO SCH (05:00)
[2022-03-04] MEDS ORDERED: chlordiazePOXIDE HCL 10 MG CAPSULE PO SCH (05:00)
[2022-03-05] MEDS ORDERED: chlordiazePOXIDE HCL 10 MG CAPSULE PO ONE (05:00)
== END 2022-03-02 11:55 | disposition left against medical advice (07) | DRG 770 ==
LOC: YASAS 15:55 → Y3N 20:58
PROVIDERS: ADMIT Allergy & Immunology; ATTEND Surgery
PROC: HZ2ZZZZ Detoxification Services for Substance Abuse Treatment (ICD-10-PCS; principal; 2022-02-28)
DX: F10.230 Alcohol dependence with withdrawal, uncomplicated (principal); F10.24 Alcohol dependence with alcohol-induced mood disorder; F10.282 Alcohol dependence with alcohol-induced sleep disorder; F34.1 Dysthymic disorder; J45.30 Mild persistent asthma, uncomplicated; Z91.011 Allergy to milk products; Z91.51 Personal history of suicidal behavior; Z56.0 Unemployment, unspecified
CPT/HCPCS: 36415; 80053; 85027; 86780; C9803-CS; U0003; U0005

== ENCOUNTER 2022-04-27 18:25 | Inpatient (IN) | payer OTHER ==
[2022-04-27 18:58] VITALS: BMI 27.9
[2022-04-27] MEDS ORDERED: guaiFENesin 200 MG/10 ML 10 ML UNIT-DOSE CUPS PO PRN (19:14)
[2022-04-27] MEDS ORDERED: DICYCLOMINE HCL 10 MG CAPSULE PO PRN (19:14)
[2022-04-27] MEDS ORDERED: IBUPROFEN 400 MG TABLET (FP) PO PRN (19:14)
[2022-04-27] MEDS ORDERED: P-EPHED 60MG/TRIPROLIDI 2.5MG TABLET PO PRN (19:14)
[2022-04-27] MEDS ORDERED: BENZOCAINE/MENTHOL (CHLORASEPTIC ) LOZENGE MM PRN (19:14)
[2022-04-27] MEDS ORDERED: METHOCARBAMOL 500 MG TABLET PO PRN (19:14)
[2022-04-27] MEDS ORDERED: MAGNESIUM HYDROX 2400MG/30ML ORAL SUSPENSION 30 ML CUP PO PRN (19:14)
[2022-04-27] MEDS ORDERED: MAG HYDROX/AL HYDROX/SIMETH 30 ML UNIT-DOSE CUP PO PRN (19:14)
[2022-04-27] MEDS ORDERED: MAGNESIUM CITRATE 300 ML BOTTLE PO PRN (19:14)
[2022-04-27] MEDS ORDERED: LOPERAMIDE HCL 2 MG CAPSULE PO PRN (19:14)
[2022-04-27] MEDS ORDERED: ONDANSETRON *ODT* 4 MG TABLET SL PRN (19:14)
[2022-04-27] MEDS ORDERED: BISMUTH SUBSALICYLATE 524 MG/30 ML PO PRN (19:14)
[2022-04-27] MEDS ORDERED: ACETAMINOPHEN 325 MG TABLET (FP) PO PRN ×2 (19:14)
[2022-04-27] MEDS ORDERED: IBUPROFEN 600 MG TABLET (FP) PO PRN (19:14)
[2022-04-27] MEDS ORDERED: ALBUTEROL SO4 HFA INHALER IH PRN (19:15)
[2022-04-27] MEDS ORDERED: chlordiazePOXIDE HCL 25 MG CAPSULE PO ONE (19:16)
[2022-04-27] MEDS ORDERED: METOPROLOL TARTRATE 25 MG TABLET (FP) PO ONE (19:16)
[2022-04-27] MEDS ORDERED: chlordiazePOXIDE HCL 25 MG CAPSULE PO PRN (19:16)
[2022-04-27] MEDS: MELATONIN 5 MG TABLETS PO PRN (21:29)
[2022-04-27] MEDS: THIAMINE HCL 100 MG TABLET (FP) PO SCH (21:29)
[2022-04-27] MEDS: chlordiazePOXIDE HCL 25 MG CAPSULE PO SCH (23:31)
[2022-04-28] MEDS: chlordiazePOXIDE HCL 25 MG CAPSULE PO SCH ×4 (05:44→22:19)
[2022-04-28] MEDS: PRENATAL VITAMINS W/ FOLIC ACID TABLET (FP) PO SCH (10:06)
[2022-04-28 10:50] LABS: HEMATOCRIT 44.9 % (35.4-49); MCH 30.9 pg (25.7-33.7); MCHC 33.4 g/dl (32.0-35.9); MEAN CELL VOLUME 92.7 fl (80-96); MEAN PLT VOLUME 9.9 fl (7.5-11.1); PLATELET COUNT 121 10^3/uL (134-434); RBC 4.84 M/mm3 (4.00-5.60); RDW 13.9 % (11.9-15.9); WHITE BLOOD COUNT 6.2 K/mm3 (4.0-10.0)
[2022-04-28 10:58] LABS: CALCIUM 8.9 mg/dL (8.5-10.1)
[2022-04-28 10:59] LABS: ALBUMIN 3.8 g/dl (3.4-5.0); BLOOD UREA NITROGEN 11.4 mg/dL (7-18)
[2022-04-28 11:02] LABS: CREATININE 0.9 mg/dL (0.55-1.3)
[2022-04-28 11:03] LABS: TOT PROT 7.2 g/dl (6.4-8.2)
[2022-04-28 11:04] LABS: BILIRUBIN,TOTAL 1.5 mg/dL (0.2-1)
[2022-04-28] MEDS: THIAMINE HCL 100 MG TABLET (FP) PO SCH (22:19)
[2022-04-28] MEDS: MELATONIN 5 MG TABLETS PO PRN (22:19)
[2022-04-29] MEDS: chlordiazePOXIDE HCL 25 MG CAPSULE PO SCH ×4 (05:47→22:24)
[2022-04-29] MEDS: PRENATAL VITAMINS W/ FOLIC ACID TABLET (FP) PO SCH (10:44)
[2022-04-29] MEDS: hydrOXYzine PAMOATE 25 MG CAPSULE (FP) PO PRN (10:45)
[2022-04-29] MEDS: THIAMINE HCL 100 MG TABLET (FP) PO SCH (22:24)
[2022-04-29] MEDS: MELATONIN 5 MG TABLETS PO PRN (22:24)
[2022-04-30] MEDS ORDERED: chlordiazePOXIDE HCL 10 MG CAPSULE PO PRN
[2022-04-30] MEDS: chlordiazePOXIDE HCL 10 MG CAPSULE PO SCH ×4 (06:55→22:33)
[2022-04-30] MEDS: PRENATAL VITAMINS W/ FOLIC ACID TABLET (FP) PO SCH (10:07)
[2022-04-30] MEDS: THIAMINE HCL 100 MG TABLET (FP) PO SCH (22:32)
[2022-04-30] MEDS: MELATONIN 5 MG TABLETS PO PRN (22:32)
[2022-05-01] MEDS: chlordiazePOXIDE HCL 10 MG CAPSULE PO SCH ×2 (05:18→18:16)
[2022-05-01] MEDS: hydrOXYzine PAMOATE 25 MG CAPSULE (FP) PO PRN ×2 (05:18→22:50)
[2022-05-01] MEDS: PRENATAL VITAMINS W/ FOLIC ACID TABLET (FP) PO SCH (09:58)
[2022-05-01] MEDS: THIAMINE HCL 100 MG TABLET (FP) PO SCH (22:50)
[2022-05-01] MEDS: MELATONIN 5 MG TABLETS PO PRN (22:50)
[2022-05-02] MEDS ORDERED: chlordiazePOXIDE HCL 10 MG CAPSULE PO ONE (05:00)
[2022-05-02 08:51] VITALS: BP 133/86; PULSE 80; RESP 16; TEMP 97.3
== END 2022-05-02 08:47 | disposition home or self-care (01) | DRG 775 ==
LOC: YASAS 18:25 → Y3N 20:40
PROVIDERS: ADMIT Allergy & Immunology; ATTEND Psychiatry & Neurology Psychiatry
PROC: HZ2ZZZZ Detoxification Services for Substance Abuse Treatment (ICD-10-PCS; principal; 2022-04-27)
DX: F10.230 Alcohol dependence with withdrawal, uncomplicated (principal); F10.282 Alcohol dependence with alcohol-induced sleep disorder; J45.30 Mild persistent asthma, uncomplicated; D69.6 Thrombocytopenia, unspecified; R94.5 Abnormal results of liver function studies; Z87.19 Personal history of other diseases of the digestive system; Z91.011 Allergy to milk products
CPT/HCPCS: 36415; 80053; 85027; 86780; C9803-CS; U0003; U0005

== ENCOUNTER 2022-07-13 10:05 | Inpatient (IN) | payer OTHER ==
[2022-07-13] MEDS ORDERED: ONDANSETRON *ODT* 4 MG TABLET SL PRN (13:33)
[2022-07-13] MEDS ORDERED: LOPERAMIDE HCL 2 MG CAPSULE PO PRN (13:33)
[2022-07-13] MEDS ORDERED: IBUPROFEN 600 MG TABLET (FP) PO PRN (13:33)
[2022-07-13] MEDS ORDERED: DICYCLOMINE HCL 10 MG CAPSULE PO PRN (13:33)
[2022-07-13] MEDS ORDERED: MAG HYDROX/AL HYDROX/SIMETH 30 ML UNIT-DOSE CUP PO PRN (13:33)
[2022-07-13] MEDS ORDERED: POLYETHYLENE GLYCOL (HEALTHYLAX) 3350 17 GM PACKET PO PRN (13:33)
[2022-07-13] MEDS ORDERED: ACETAMINOPHEN 325 MG TABLET (FP) PO PRN ×2 (13:33)
[2022-07-13] MEDS ORDERED: MAGNESIUM HYDROX 2400MG/30ML ORAL SUSPENSION 30 ML CUP PO PRN (13:33)
[2022-07-13] MEDS ORDERED: BENZOCAINE/MENTHOL (CHLORASEPTIC ) LOZENGE MM PRN (13:33)
[2022-07-13] MEDS ORDERED: IBUPROFEN 400 MG TABLET (FP) PO PRN (13:33)
[2022-07-13] MEDS ORDERED: BISMUTH SUBSALICYLATE 262 MG/15 ML BTL PO PRN (13:33)
[2022-07-13] MEDS ORDERED: NALOXONE HCL (KLOXXADO) 8 MG SPRAY NS PRN (13:33)
[2022-07-13] MEDS ORDERED: NICOTINE 10 MG CARTRIDGE (INHALER) IH PRN (13:33)
[2022-07-13] MEDS ORDERED: ONDANSETRON *ODT* 4 MG TABLET SL ONE (13:37)
[2022-07-13] MEDS ORDERED: ALBUTEROL SO4 HFA INHALER IH PRN (13:39)
[2022-07-13] MEDS ORDERED: LORazepam 2 MG TABLET PO ONE (13:41)
[2022-07-13] MEDS ORDERED: LORazepam 1 MG TABLET PO PRN (13:41)
[2022-07-13] MEDS ORDERED: LORazepam 2 MG TABLET ONE (14:25)
[2022-07-13] MEDS: PRENATAL VITAMINS W/ FOLIC ACID TABLET (FP) PO SCH (14:39)
[2022-07-13 14:54] VITALS: BMI 28.3
[2022-07-13] MEDS: METHOCARBAMOL 500 MG TABLET PO PRN (15:02)
[2022-07-13] MEDS: hydrOXYzine PAMOATE 25 MG CAPSULE (FP) PO PRN (15:02)
[2022-07-13] MEDS: LORazepam 2 MG TABLET PO SCH ×2 (17:16→22:08)
[2022-07-13] MEDS: THIAMINE HCL 100 MG TABLET (FP) PO SCH (22:09)
[2022-07-13] MEDS: MELATONIN 5 MG TABLETS PO SCH (22:09)
[2022-07-14] MEDS: LORazepam 2 MG TABLET PO SCH ×4 (05:39→22:17)
[2022-07-14] MEDS: PRENATAL VITAMINS W/ FOLIC ACID TABLET (FP) PO SCH (10:09)
[2022-07-14 10:44] LABS: HEMATOCRIT 47.9 % (35.4-49); HEMOGLOBIN 15.2 GM/dL (11.7-16.9); MCH 29.3 pg (25.7-33.7); MCHC 31.8 g/dl (32.0-35.9); MEAN CELL VOLUME 92.2 fl (80-96); MEAN PLT VOLUME 10.1 fl (7.5-11.1); PLATELET COUNT 159 10^3/uL (134-434); RBC 5.19 M/mm3 (4.00-5.60); RDW 13.9 % (11.9-15.9)
[2022-07-14 10:50] LABS: ALBUMIN 3.7 g/dl (3.4-5.0); BLOOD UREA NITROGEN 8.7 mg/dL (7-18); CALCIUM 8.8 mg/dL (8.5-10.1)
[2022-07-14 10:55] LABS: BILIRUBIN,TOTAL 1.3 mg/dL (0.2-1); TOT PROT 7.1 g/dl (6.4-8.2)
[2022-07-14] MEDS: THIAMINE HCL 100 MG TABLET (FP) PO SCH (22:17)
[2022-07-14] MEDS: traZODone HCL 50 MG TABLET (FP) PO SCH (22:17)
[2022-07-15] MEDS: LORazepam 1 MG TABLET PO SCH ×4 (05:32→22:16)
[2022-07-15] MEDS: PRENATAL VITAMINS W/ FOLIC ACID TABLET (FP) PO SCH (10:30)
[2022-07-15] MEDS: METHOCARBAMOL 500 MG TABLET PO PRN (10:30)
[2022-07-15] MEDS: hydrOXYzine PAMOATE 25 MG CAPSULE (FP) PO PRN ×2 (10:30→22:17)
[2022-07-15 12:34] LABS: BILIRUBIN,TOTAL 0.6 mg/dL (0.2-1)
[2022-07-15 12:39] LABS: SGPT/ALT 81 U/L (13-61)
[2022-07-15 12:41] LABS: SGOT/AST 59 U/L (15-37)
[2022-07-15 18:13] VITALS: RESP 18
[2022-07-15] MEDS: traZODone HCL 50 MG TABLET (FP) PO SCH (22:16)
[2022-07-15] MEDS: THIAMINE HCL 100 MG TABLET (FP) PO SCH (22:16)
[2022-07-16] MEDS ORDERED: LORazepam 0.5 MG TABLET PO PRN
[2022-07-16] MEDS: LORazepam 0.5 MG TABLET PO SCH ×4 (07:54→22:43)
[2022-07-16] MEDS: METHOCARBAMOL 500 MG TABLET PO PRN (10:14)
[2022-07-16] MEDS: hydrOXYzine PAMOATE 25 MG CAPSULE (FP) PO PRN ×2 (10:14→22:42)
[2022-07-16] MEDS: PRENATAL VITAMINS W/ FOLIC ACID TABLET (FP) PO SCH (10:14)
[2022-07-16] MEDS: traZODone HCL 50 MG TABLET (FP) PO SCH (22:42)
[2022-07-16] MEDS: THIAMINE HCL 100 MG TABLET (FP) PO SCH (22:42)
[2022-07-16] MEDS: MELATONIN 5 MG TABLETS PO SCH (22:42)
[2022-07-17] MEDS: METHOCARBAMOL 500 MG TABLET PO PRN (00:54)
[2022-07-17] MEDS ORDERED: LORazepam 0.5 MG TABLET PO ONE (05:00)
[2022-07-17 09:21] VITALS: BP 119/71; PULSE 81; TEMP 97
[2022-07-17] MEDS: PRENATAL VITAMINS W/ FOLIC ACID TABLET (FP) PO SCH (10:17)
== END 2022-07-17 10:20 | disposition home or self-care (01) | DRG 774 ==
LOC: YASAS 10:05 → Y6N 14:16
PROVIDERS: ADMIT Allergy & Immunology; ATTEND Surgery
PROC: HZ2ZZZZ Detoxification Services for Substance Abuse Treatment (ICD-10-PCS; principal; 2022-07-13)
DX: F10.230 Alcohol dependence with withdrawal, uncomplicated (principal); F14.20 Cocaine dependence, uncomplicated; F33.1 Major depressive disorder, recurrent, moderate; F19.282 Other psychoactive substance dependence with psychoactive substance-induced sleep disorder; F13.230 Sedative, hypnotic or anxiolytic dependence with withdrawal, uncomplicated; F10.282 Alcohol dependence with alcohol-induced sleep disorder; F19.24 Other psychoactive substance dependence with psychoactive substance-induced mood disorder; K21.9 Gastro-esophageal reflux disease without esophagitis; J45.30 Mild persistent asthma, uncomplicated; M51.26 Other intervertebral disc displacement, lumbar region; M54.50 Low back pain, unspecified; G89.29 Other chronic pain; Z87.891 Personal history of nicotine dependence; Z91.011 Allergy to milk products
CPT/HCPCS: 36415; 80053; 82247; 82947; 83036; 84450; 84460; 85027; 86780; 87811; C9803-CS; Q0162; U0003; U0005

== ENCOUNTER 2023-06-11 11:58 | Inpatient (IN) | payer OTHER ==
[2023-06-11 12:57] VITALS: BMI 28.2
[2023-06-11] MEDS ORDERED: POLYETHYLENE GLYCOL (HEALTHYLAX) 3350 17 GM PACKET PO PRN (13:18)
[2023-06-11] MEDS ORDERED: MAGNESIUM HYDROX 2400MG/30ML ORAL SUSPENSION 30 ML CUP PO PRN (13:18)
[2023-06-11] MEDS ORDERED: ACETAMINOPHEN 325 MG TABLET (FP) PO PRN (13:18)
[2023-06-11] MEDS ORDERED: LOPERAMIDE HCL 2 MG CAPSULE PO PRN (13:18)
[2023-06-11] MEDS ORDERED: NALOXONE HCL 0.4 MG/ML VIAL IM PRN (13:18)
[2023-06-11] MEDS ORDERED: DICYCLOMINE HCL 10 MG CAPSULE PO PRN (13:18)
[2023-06-11] MEDS ORDERED: BISMUTH SUBSALICYLATE 524 MG/30 ML PO PRN (13:18)
[2023-06-11] MEDS ORDERED: NALOXONE HCL (KLOXXADO) 8 MG SPRAY NS PRN (13:18)
[2023-06-11] MEDS ORDERED: BENZONATATE 200 MG CAPSULE PO PRN (13:18)
[2023-06-11] MEDS ORDERED: IBUPROFEN 600 MG TABLET (FP) PO PRN (13:18)
[2023-06-11] MEDS ORDERED: MAG HYDROX/AL HYDROX/SIMETH 30 ML UNIT-DOSE CUP PO PRN (13:18)
[2023-06-11] MEDS ORDERED: BENZOCAINE/MENTHOL (CHLORASEPTIC ) LOZENGE MM PRN (13:18)
[2023-06-11] MEDS ORDERED: guaiFENesin 600 MG TABLET.ER (FP) PO PRN (13:18)
[2023-06-11] MEDS ORDERED: IBUPROFEN 400 MG TABLET (FP) PO PRN (13:18)
[2023-06-11] MEDS ORDERED: ONDANSETRON *ODT* 4 MG TABLET SL PRN (13:18)
[2023-06-11] MEDS ORDERED: LORazepam 1 MG TABLET PO PRN (13:18)
[2023-06-11] MEDS ORDERED: LORazepam 2 MG TABLET PO ONE (14:15)
[2023-06-11] MEDS ORDERED: LORazepam 2 MG TABLET ONE (14:18)
[2023-06-11] MEDS: PRENATAL VITAMINS W/ FOLIC ACID TABLET (FP) PO SCH (14:42)
[2023-06-11] MEDS: hydrOXYzine PAMOATE 25 MG CAPSULE (FP) PO PRN (15:10)
[2023-06-11] MEDS: LORazepam 2 MG TABLET PO SCH ×2 (17:59→23:58)
[2023-06-11] MEDS ORDERED: BUDESONIDE/FORMETEROL FUMARATE 160/4.5 mcg INHALER IH SCH (22:00)
[2023-06-11] MEDS: MELATONIN 5 MG TABLETS PO SCH (23:58)
[2023-06-11] MEDS: BUDESONIDE/FORMETEROL FUMARATE 160/4.5 mcg INHALER IH SCH (23:58)
[2023-06-11] MEDS: THIAMINE HCL 100 MG TABLET (FP) PO SCH (23:58)
[2023-06-12] MEDS: LORazepam 2 MG TABLET PO SCH ×4 (05:16→22:15)
[2023-06-12] MEDS: PRENATAL VITAMINS W/ FOLIC ACID TABLET (FP) PO SCH (10:19)
[2023-06-12] MEDS: BUDESONIDE/FORMETEROL FUMARATE 160/4.5 mcg INHALER IH SCH ×2 (10:19→22:15)
[2023-06-12 11:57] LABS: HEMATOCRIT 45.9 % (35.4-49); MCH 29.1 pg (25.7-33.7); MCHC 32.8 g/dl (32.0-35.9); MEAN CELL VOLUME 88.7 fl (80-96); PLATELET COUNT 145 10^3/uL (134-434); RBC 5.17 M/mm3 (4.00-5.60); RDW 15.1 % (11.9-15.9); WHITE BLOOD COUNT 6.1 K/mm3 (4.0-10.0)
[2023-06-12 12:08] LABS: POTASSIUM 4.2 mmol/L (3.5-5.1)
[2023-06-12 12:23] LABS: CALCIUM 8.7 mg/dL (8.5-10.1)
[2023-06-12 12:24] LABS: ALBUMIN 3.9 g/dl (3.4-5.0); BLOOD UREA NITROGEN 13.4 mg/dL (7-18)
[2023-06-12 12:28] LABS: TOT PROT 7.1 g/dl (6.4-8.2)
[2023-06-12 12:29] LABS: BILIRUBIN,TOTAL 0.8 mg/dL (0.2-1)
[2023-06-12] MEDS: METHOCARBAMOL 500 MG TABLET PO PRN (22:15)
[2023-06-12] MEDS: MELATONIN 5 MG TABLETS PO SCH (22:15)
[2023-06-12] MEDS: THIAMINE HCL 100 MG TABLET (FP) PO SCH (22:15)
[2023-06-12] MEDS: hydrOXYzine PAMOATE 25 MG CAPSULE (FP) PO PRN (22:15)
[2023-06-12] MEDS: traZODone HCL 100 MG TABLET (FP) PO SCH (22:15)
[2023-06-13] MEDS: LORazepam 1 MG TABLET PO SCH ×4 (05:18→22:47)
[2023-06-13] MEDS: PRENATAL VITAMINS W/ FOLIC ACID TABLET (FP) PO SCH (10:09)
[2023-06-13] MEDS: BUDESONIDE/FORMETEROL FUMARATE 160/4.5 mcg INHALER IH SCH ×2 (10:10→22:49)
[2023-06-13] MEDS: traZODone HCL 100 MG TABLET (FP) PO SCH (22:46)
[2023-06-13] MEDS: MELATONIN 5 MG TABLETS PO SCH (22:47)
[2023-06-13] MEDS: THIAMINE HCL 100 MG TABLET (FP) PO SCH (22:47)
[2023-06-14] MEDS ORDERED: LORazepam 0.5 MG TABLET PO PRN
[2023-06-14] MEDS: LORazepam 0.5 MG TABLET PO SCH ×4 (05:23→22:20)
[2023-06-14] MEDS: BUDESONIDE/FORMETEROL FUMARATE 160/4.5 mcg INHALER IH SCH ×2 (10:19→22:18)
[2023-06-14] MEDS: PRENATAL VITAMINS W/ FOLIC ACID TABLET (FP) PO SCH (10:19)
[2023-06-14] MEDS: THIAMINE HCL 100 MG TABLET (FP) PO SCH (22:19)
[2023-06-14] MEDS: METHOCARBAMOL 500 MG TABLET PO PRN (22:19)
[2023-06-14] MEDS: traZODone HCL 100 MG TABLET (FP) PO SCH (22:19)
[2023-06-14] MEDS: MELATONIN 5 MG TABLETS PO SCH (22:19)
[2023-06-15] MEDS ORDERED: LORazepam 0.5 MG TABLET PO ONE (05:00)
[2023-06-15 09:19] VITALS: RESP 20
[2023-06-15] MEDS: BUDESONIDE/FORMETEROL FUMARATE 160/4.5 mcg INHALER IH SCH (10:11)
[2023-06-15] MEDS: PRENATAL VITAMINS W/ FOLIC ACID TABLET (FP) PO SCH (10:11)
[2023-06-15 13:02] VITALS: BP 131/91; PULSE 73; TEMP 97.8
== END 2023-06-15 12:12 | disposition other institution (70) | DRG 775 ==
LOC: YASAS 11:58 → Y3N 13:56
PROVIDERS: ADMIT Allergy & Immunology; ATTEND Surgery
PROC: HZ2ZZZZ Detoxification Services for Substance Abuse Treatment (ICD-10-PCS; principal; 2023-06-11)
DX: F10.230 Alcohol dependence with withdrawal, uncomplicated (principal); F10.280 Alcohol dependence with alcohol-induced anxiety disorder; F19.280 Other psychoactive substance dependence with psychoactive substance-induced anxiety disorder; F33.1 Major depressive disorder, recurrent, moderate; F41.8 Other specified anxiety disorders; J45.30 Mild persistent asthma, uncomplicated; G47.00 Insomnia, unspecified; M54.50 Low back pain, unspecified; G89.29 Other chronic pain; Z87.891 Personal history of nicotine dependence
CPT/HCPCS: 36415; 80053; 80307; 85027; 86780; 87635; 87811; Q0162

== ENCOUNTER 2023-06-15 12:28 | Inpatient (IN) | payer OTHER ==
[2023-06-15] MEDS ORDERED: MAG HYDROX/AL HYDROX/SIMETH 30 ML UNIT-DOSE CUP PO PRN (13:11)
[2023-06-15] MEDS ORDERED: COLLOIDAL OATMEAL 1 BAR EACH TP PRN (13:11)
[2023-06-15] MEDS ORDERED: BENZOCAINE/MENTHOL (CHLORASEPTIC ) LOZENGE MM PRN (13:11)
[2023-06-15] MEDS ORDERED: NALOXONE HCL (KLOXXADO) 8 MG SPRAY NS PRN (13:11)
[2023-06-15] MEDS ORDERED: MAGNESIUM HYDROX 2400MG/30ML ORAL SUSPENSION 30 ML CUP PO PRN (13:11)
[2023-06-15] MEDS ORDERED: IBUPROFEN 400 MG TABLET (FP) PO PRN (13:11)
[2023-06-15] MEDS ORDERED: LOPERAMIDE HCL 2 MG CAPSULE PO PRN (13:11)
[2023-06-15] MEDS ORDERED: NALOXONE HCL 0.4 MG/ML VIAL IVPUSH PRN (13:11)
[2023-06-15] MEDS ORDERED: BENZONATATE 200 MG CAPSULE PO PRN (13:11)
[2023-06-15] MEDS ORDERED: guaiFENesin 600 MG TABLET.ER (FP) PO PRN (13:11)
[2023-06-15] MEDS ORDERED: ACETAMINOPHEN 325 MG TABLET (FP) PO PRN (13:11)
[2023-06-15] MEDS ORDERED: POLYETHYLENE GLYCOL (HEALTHYLAX) 3350 17 GM PACKET PO PRN (13:11)
[2023-06-15] MEDS ORDERED: ALBUTEROL SO4 HFA INHALER IH PRN (13:14)
[2023-06-15] MEDS: BUDESONIDE/FORMETEROL FUMARATE 160/4.5 mcg INHALER IH SCH (21:15)
[2023-06-15] MEDS: MELATONIN 5 MG TABLETS PO SCH (21:16)
[2023-06-15] MEDS: THIAMINE HCL 100 MG TABLET (FP) PO SCH (21:16)
[2023-06-15] MEDS ORDERED: traZODone HCL 100 MG TABLET (FP) PO SCH (22:00)
[2023-06-16] MEDS: PRENATAL VITAMINS W/ FOLIC ACID TABLET (FP) PO SCH (09:43)
[2023-06-16] MEDS: BUDESONIDE/FORMETEROL FUMARATE 160/4.5 mcg INHALER IH SCH ×2 (09:44→21:20)
[2023-06-16] MEDS: hydrOXYzine PAMOATE 25 MG CAPSULE (FP) PO PRN ×2 (15:43→21:22)
[2023-06-16] MEDS: MELATONIN 5 MG TABLETS PO SCH (21:20)
[2023-06-16] MEDS: THIAMINE HCL 100 MG TABLET (FP) PO SCH (21:20)
[2023-06-16] MEDS: traZODone HCL 50 MG TABLET (FP) PO SCH (21:22)
[2023-06-17] MEDS: BUDESONIDE/FORMETEROL FUMARATE 160/4.5 mcg INHALER IH SCH ×2 (09:31→21:13)
[2023-06-17] MEDS: PRENATAL VITAMINS W/ FOLIC ACID TABLET (FP) PO SCH (09:31)
[2023-06-17] MEDS: hydrOXYzine PAMOATE 25 MG CAPSULE (FP) PO PRN ×2 (12:39→21:14)
[2023-06-17] MEDS: traZODone HCL 50 MG TABLET (FP) PO SCH (21:13)
[2023-06-17] MEDS: THIAMINE HCL 100 MG TABLET (FP) PO SCH (21:14)
[2023-06-17] MEDS: MELATONIN 5 MG TABLETS PO SCH (21:14)
[2023-06-18] MEDS: PRENATAL VITAMINS W/ FOLIC ACID TABLET (FP) PO SCH (09:28)
[2023-06-18] MEDS: BUDESONIDE/FORMETEROL FUMARATE 160/4.5 mcg INHALER IH SCH ×2 (09:28→21:20)
[2023-06-18] MEDS: traZODone HCL 50 MG TABLET (FP) PO SCH (21:20)
[2023-06-18] MEDS: THIAMINE HCL 100 MG TABLET (FP) PO SCH (21:20)
[2023-06-18] MEDS: MELATONIN 5 MG TABLETS PO SCH (21:20)
[2023-06-18] MEDS: hydrOXYzine PAMOATE 25 MG CAPSULE (FP) PO PRN (21:21)
[2023-06-19] MEDS: PRENATAL VITAMINS W/ FOLIC ACID TABLET (FP) PO SCH (09:40)
[2023-06-19] MEDS: BUDESONIDE/FORMETEROL FUMARATE 160/4.5 mcg INHALER IH SCH ×2 (09:41→21:19)
[2023-06-19] MEDS: MELATONIN 5 MG TABLETS PO SCH (21:19)
[2023-06-19] MEDS: traZODone HCL 50 MG TABLET (FP) PO SCH (21:19)
[2023-06-19] MEDS: THIAMINE HCL 100 MG TABLET (FP) PO SCH (21:19)
[2023-06-20] MEDS: BUDESONIDE/FORMETEROL FUMARATE 160/4.5 mcg INHALER IH SCH ×2 (09:38→21:35)
[2023-06-20] MEDS: PRENATAL VITAMINS W/ FOLIC ACID TABLET (FP) PO SCH (09:38)
[2023-06-20] MEDS: MELATONIN 5 MG TABLETS PO SCH (21:34)
[2023-06-20] MEDS: THIAMINE HCL 100 MG TABLET (FP) PO SCH (21:34)
[2023-06-20] MEDS: traZODone HCL 50 MG TABLET (FP) PO SCH (21:34)
[2023-06-21] MEDS: METHOCARBAMOL 500 MG TABLET PO PRN ×2 (07:16→15:27)
[2023-06-21] MEDS: BUDESONIDE/FORMETEROL FUMARATE 160/4.5 mcg INHALER IH SCH ×2 (09:24→21:06)
[2023-06-21] MEDS: PRENATAL VITAMINS W/ FOLIC ACID TABLET (FP) PO SCH (09:24)
[2023-06-21] MEDS: IBUPROFEN 600 MG TABLET (FP) PO PRN ×2 (12:17→18:44)
[2023-06-21] MEDS: THIAMINE HCL 100 MG TABLET (FP) PO SCH (21:06)
[2023-06-21] MEDS: traZODone HCL 50 MG TABLET (FP) PO SCH (21:06)
[2023-06-21] MEDS: MELATONIN 5 MG TABLETS PO SCH (21:08)
[2023-06-22] MEDS: PRENATAL VITAMINS W/ FOLIC ACID TABLET (FP) PO SCH (10:02)
[2023-06-22] MEDS: BUDESONIDE/FORMETEROL FUMARATE 160/4.5 mcg INHALER IH SCH ×2 (10:02→21:18)
[2023-06-22] MEDS ORDERED: LIDOCAINE 4% PATCH TP ONE (11:32)
[2023-06-22] MEDS: THIAMINE HCL 100 MG TABLET (FP) PO SCH (21:19)
[2023-06-22] MEDS: traZODone HCL 50 MG TABLET (FP) PO SCH (21:19)
[2023-06-22] MEDS: MELATONIN 5 MG TABLETS PO SCH (21:19)
[2023-06-22] MEDS: LIDOCAINE PATCH REMOVAL MC SCH (21:19)
[2023-06-23] MEDS: PRENATAL VITAMINS W/ FOLIC ACID TABLET (FP) PO SCH (09:45)
[2023-06-23] MEDS: BUDESONIDE/FORMETEROL FUMARATE 160/4.5 mcg INHALER IH SCH ×2 (09:46→21:26)
[2023-06-23] MEDS: THIAMINE HCL 100 MG TABLET (FP) PO SCH (21:25)
[2023-06-23] MEDS: traZODone HCL 50 MG TABLET (FP) PO SCH (21:25)
[2023-06-23] MEDS: MELATONIN 5 MG TABLETS PO SCH (21:25)
[2023-06-23] MEDS: LIDOCAINE PATCH REMOVAL MC SCH (21:46)
[2023-06-24] MEDS: BUDESONIDE/FORMETEROL FUMARATE 160/4.5 mcg INHALER IH SCH ×2 (09:49→21:18)
[2023-06-24] MEDS: PRENATAL VITAMINS W/ FOLIC ACID TABLET (FP) PO SCH (09:49)
[2023-06-24] MEDS: MELATONIN 5 MG TABLETS PO SCH (21:14)
[2023-06-24] MEDS: THIAMINE HCL 100 MG TABLET (FP) PO SCH (21:14)
[2023-06-24] MEDS: traZODone HCL 50 MG TABLET (FP) PO SCH (21:15)
[2023-06-24] MEDS: LIDOCAINE PATCH REMOVAL MC SCH (21:19)
[2023-06-25] MEDS: PRENATAL VITAMINS W/ FOLIC ACID TABLET (FP) PO SCH (09:53)
[2023-06-25] MEDS: BUDESONIDE/FORMETEROL FUMARATE 160/4.5 mcg INHALER IH SCH ×2 (09:54→21:10)
[2023-06-25] MEDS: THIAMINE HCL 100 MG TABLET (FP) PO SCH (21:10)
[2023-06-25] MEDS: traZODone HCL 50 MG TABLET (FP) PO SCH (21:11)
[2023-06-25] MEDS: MELATONIN 5 MG TABLETS PO SCH (21:11)
[2023-06-25] MEDS: LIDOCAINE PATCH REMOVAL MC SCH (21:11)
[2023-06-26] MEDS: PRENATAL VITAMINS W/ FOLIC ACID TABLET (FP) PO SCH (09:34)
[2023-06-26] MEDS: BUDESONIDE/FORMETEROL FUMARATE 160/4.5 mcg INHALER IH SCH ×2 (09:35→21:04)
[2023-06-26] MEDS: IBUPROFEN 600 MG TABLET (FP) PO PRN (17:22)
[2023-06-26] MEDS: traZODone HCL 50 MG TABLET (FP) PO SCH (21:06)
[2023-06-26] MEDS: THIAMINE HCL 100 MG TABLET (FP) PO SCH (21:07)
[2023-06-26] MEDS: LIDOCAINE PATCH REMOVAL MC SCH (21:07)
[2023-06-26] MEDS: MELATONIN 5 MG TABLETS PO SCH (21:08)
[2023-06-27] MEDS: PRENATAL VITAMINS W/ FOLIC ACID TABLET (FP) PO SCH (09:42)
[2023-06-27] MEDS: BUDESONIDE/FORMETEROL FUMARATE 160/4.5 mcg INHALER IH SCH ×2 (09:42→21:02)
[2023-06-27] MEDS: MELATONIN 5 MG TABLETS PO SCH (21:02)
[2023-06-27] MEDS: traZODone HCL 50 MG TABLET (FP) PO SCH (21:02)
[2023-06-27] MEDS: THIAMINE HCL 100 MG TABLET (FP) PO SCH (21:02)
[2023-06-27] MEDS: LIDOCAINE PATCH REMOVAL MC SCH (21:44)
[2023-06-28] MEDS: PRENATAL VITAMINS W/ FOLIC ACID TABLET (FP) PO SCH (09:48)
[2023-06-28] MEDS: BUDESONIDE/FORMETEROL FUMARATE 160/4.5 mcg INHALER IH SCH ×2 (09:49→21:08)
[2023-06-28] MEDS: THIAMINE HCL 100 MG TABLET (FP) PO SCH (21:07)
[2023-06-28] MEDS: MELATONIN 5 MG TABLETS PO SCH (21:07)
[2023-06-28] MEDS: traZODone HCL 50 MG TABLET (FP) PO SCH (21:08)
[2023-06-28] MEDS: LIDOCAINE PATCH REMOVAL MC SCH (21:43)
[2023-06-29] MEDS: PRENATAL VITAMINS W/ FOLIC ACID TABLET (FP) PO SCH (09:40)
[2023-06-29] MEDS: BUDESONIDE/FORMETEROL FUMARATE 160/4.5 mcg INHALER IH SCH ×2 (09:40→21:05)
[2023-06-29] MEDS: LIDOCAINE PATCH REMOVAL MC SCH (21:06)
[2023-06-29] MEDS: MELATONIN 5 MG TABLETS PO SCH (21:06)
[2023-06-29] MEDS: THIAMINE HCL 100 MG TABLET (FP) PO SCH (21:06)
[2023-06-29] MEDS: traZODone HCL 50 MG TABLET (FP) PO SCH (21:06)
[2023-06-30] MEDS: BUDESONIDE/FORMETEROL FUMARATE 160/4.5 mcg INHALER IH SCH ×2 (09:54→21:02)
[2023-06-30] MEDS: PRENATAL VITAMINS W/ FOLIC ACID TABLET (FP) PO SCH (09:54)
[2023-06-30] MEDS: traZODone HCL 50 MG TABLET (FP) PO SCH (21:02)
[2023-06-30] MEDS: THIAMINE HCL 100 MG TABLET (FP) PO SCH (21:02)
[2023-06-30] MEDS: LIDOCAINE PATCH REMOVAL MC SCH (21:03)
[2023-06-30] MEDS: MELATONIN 5 MG TABLETS PO SCH (21:03)
[2023-07-01 06:58] VITALS: RESP 18
[2023-07-01] MEDS: BUDESONIDE/FORMETEROL FUMARATE 160/4.5 mcg INHALER IH SCH ×2 (09:39→21:08)
[2023-07-01] MEDS: PRENATAL VITAMINS W/ FOLIC ACID TABLET (FP) PO SCH (09:40)
[2023-07-01] MEDS: traZODone HCL 50 MG TABLET (FP) PO SCH (21:07)
[2023-07-01] MEDS: THIAMINE HCL 100 MG TABLET (FP) PO SCH (21:08)
[2023-07-01] MEDS: LIDOCAINE PATCH REMOVAL MC SCH (21:08)
[2023-07-01] MEDS: MELATONIN 5 MG TABLETS PO SCH (21:08)
[2023-07-02 06:58] VITALS: BP 122/82; PULSE 81; TEMP 98.1
== END 2023-07-02 08:30 | disposition home or self-care (01) | DRG 772 ==
LOC: YASAS 12:28 → Y5N 12:30
PROVIDERS: ADMIT Allergy & Immunology; ATTEND Psychiatry & Neurology Pain Medicine
PROC: HZ42ZZZ Group Counseling for Substance Abuse Treatment, Cognitive-Behavioral (ICD-10-PCS; principal; 2023-06-15)
DX: F10.20 Alcohol dependence, uncomplicated (principal); F41.9 Anxiety disorder, unspecified; F32.A Depression, unspecified; J45.30 Mild persistent asthma, uncomplicated; M54.50 Low back pain, unspecified; G89.29 Other chronic pain; R94.5 Abnormal results of liver function studies; Z87.19 Personal history of other diseases of the digestive system; Z91.011 Allergy to milk products

== ENCOUNTER 2024-10-05 18:46 | Inpatient (IN) | payer OTHER ==
[2024-10-05 19:21] VITALS: BMI 30.7
[2024-10-05] MEDS ORDERED: ACETAMINOPHEN 325 MG TABLET (FP) PO PRN (20:34)
[2024-10-05] MEDS ORDERED: IBUPROFEN 400 MG TABLET (FP) PO PRN (20:34)
[2024-10-05] MEDS ORDERED: guaiFENesin 600 MG TABLET.ER (FP) PO PRN (20:34)
[2024-10-05] MEDS ORDERED: MAG HYDROX/AL HYDROX/SIMETH 30 ML UNIT-DOSE CUP PO PRN (20:34)
[2024-10-05] MEDS ORDERED: DICYCLOMINE HCL 10 MG CAPSULE PO PRN (20:34)
[2024-10-05] MEDS ORDERED: LOPERAMIDE HCL 2 MG CAPSULE PO PRN (20:34)
[2024-10-05] MEDS ORDERED: ONDANSETRON *ODT* 4 MG TABLET SL PRN (20:34)
[2024-10-05] MEDS ORDERED: BENZOCAINE/MENTHOL (CHLORASEPTIC ) LOZENGE MM PRN (20:34)
[2024-10-05] MEDS ORDERED: BISMUTH SUBSALICYLATE 524 MG/30 ML PO PRN (20:34)
[2024-10-05] MEDS ORDERED: IBUPROFEN 600 MG TABLET (FP) PO PRN (20:34)
[2024-10-05] MEDS ORDERED: MAGNESIUM HYDROX 2400MG/30ML ORAL SUSPENSION 30 ML CUP PO PRN (20:34)
[2024-10-05] MEDS ORDERED: BENZONATATE 200 MG CAPSULE PO PRN (20:34)
[2024-10-05] MEDS ORDERED: NALOXONE (NARCAN) HCL 4 MG/0.1 ML SPRAY NS PRN (20:34)
[2024-10-05] MEDS ORDERED: NICOTINE POLACRILEX 4 MG GUM BUC PRN (20:34)
[2024-10-05] MEDS ORDERED: ALBUTEROL SO4 HFA INHALER IH PRN (20:34)
[2024-10-05] MEDS ORDERED: POLYETHYLENE GLYCOL (HEALTHYLAX) 3350 17 GM PACKET PO PRN (20:34)
[2024-10-05] MEDS: MELATONIN 5 MG TABLETS PO SCH (21:27)
[2024-10-05] MEDS: THIAMINE 100 MG TABLET PO SCH (21:27)
[2024-10-05] MEDS: hydrOXYzine PAMOATE 25 MG CAPSULE (FP) PO PRN (21:27)
[2024-10-05] MEDS: METHOCARBAMOL 500 MG TABLET PO PRN (21:27)
[2024-10-06] MEDS ORDERED: chlordiazePOXIDE HCL 25 MG CAPSULE PO PRN (06:06)
[2024-10-06] MEDS: PRENATAL VITAMINS W/ FOLIC ACID TABLET (FP) PO SCH (10:05)
[2024-10-06] MEDS: chlordiazePOXIDE HCL 25 MG CAPSULE PO SCH (10:05)
[2024-10-06 10:50] LABS: CHLORIDE 102 mmol/L (98-107); POTASSIUM 4.5 mmol/L (3.5-5.1); SODIUM 137 mmol/L (136-145)
[2024-10-06 10:55] LABS: HEMATOCRIT 47.3 % (35.4-49); HEMOGLOBIN 15.5 GM/dL (11.7-16.9); MCH 28.7 pg (25.7-33.7); MCHC 32.7 g/dl (32.0-35.9); MEAN CELL VOLUME 87.6 fl (80-96); MEAN PLT VOLUME 10.5 fl (7.5-11.1); PLATELET COUNT 96 10^3/uL (134-434); RDW 13.7 % (11.9-15.9); WHITE BLOOD COUNT 6.8 K/mm3 (4.0-10.0)
[2024-10-06 11:10] LABS: BLOOD UREA NITROGEN 15.3 mg/dL (7-18); CALCIUM 8.9 mg/dL (8.5-10.1); GLUCOSE,RANDOM 104 mg/dL (74-106)
[2024-10-06 11:11] LABS: CREATININE 1.2 mg/dL (0.55-1.3); SGPT/ALT 60 U/L (13-61)
[2024-10-06 11:13] LABS: ALK PHOS 68 U/L (45-117); ANION GAP 5 mmol/L (4-13); BILIRUBIN,TOTAL 1.2 mg/dL (0.2-1); CO2 29 mmol/L (21-32); SGOT/AST 57 U/L (15-37); TOT PROT 7.6 g/dl (6.4-8.2)
[2024-10-07 12:31] VITALS: BP 109/63; PULSE 95; RESP 20; TEMP 97.5
[2024-10-07] MEDS: BUDESONIDE/FORMETEROL FUMARATE 160/4.5 mcg INHALER IH SCH (14:21)
[2024-10-08] MEDS ORDERED: chlordiazePOXIDE HCL 25 MG CAPSULE PO SCH (05:00)
[2024-10-09] MEDS ORDERED: chlordiazePOXIDE HCL 10 MG CAPSULE PO PRN
[2024-10-09] MEDS ORDERED: chlordiazePOXIDE HCL 10 MG CAPSULE PO SCH (05:00)
[2024-10-10] MEDS ORDERED: chlordiazePOXIDE HCL 10 MG CAPSULE PO SCH (05:00)
[2024-10-11] MEDS ORDERED: chlordiazePOXIDE HCL 10 MG CAPSULE PO ONE (05:00)
== END 2024-10-07 14:27 | disposition left against medical advice (07) | DRG 770 ==
LOC: YASAS 18:46 → Y3N 21:01
PROVIDERS: ADMIT Allergy & Immunology; ATTEND Allergy & Immunology
PROC: HZ2ZZZZ Detoxification Services for Substance Abuse Treatment (ICD-10-PCS; principal; 2024-10-05)
DX: F10.230 Alcohol dependence with withdrawal, uncomplicated (principal); F19.24 Other psychoactive substance dependence with psychoactive substance-induced mood disorder; F41.9 Anxiety disorder, unspecified; F32.A Depression, unspecified; J44.9 Chronic obstructive pulmonary disease, unspecified; J45.20 Mild intermittent asthma, uncomplicated; Z86.19 Personal history of other infectious and parasitic diseases; Z59.00 Homelessness unspecified
CPT/HCPCS: 36415; 80053; 80305; 80307; 85027; 86780; 93005; 93010